=== PATIENT | female | born 1985 | race Caucasian/White ===

== ENCOUNTER 2024-08-09 08:34 | Inpatient (IN) | payer OTHER ==
--- OUTSIDE RECORDS SUMMARY | 2024-08-09 08:39 | XMS REPORT | Continuity of Care Document ---
Author Name Unknown Address [address] [facility] [place] [address] [facility] Address [address] [facility] [place] [address] Care Team Providers Care Radio Artist Name Role Phone PCP, PATIENT DOES NOT HAVE A Primary Care Physic huma Unavailable PAIGE THURSTON Attending Clinician Unavailable PAIGE THURSTON Attending Clinician Unavailable Paige Thurston MD Attending Clinician [phone] Nurse, [facility] Attending Clinician Unavailable Kunal Finley MD Attending Clinician [phone] KUNAL FINLEY Attending Clinician Unavailab KUNAL Christine Attending Clinician Unavailab Jaymie Gutierrez PA-C Attending Clinician [phone] Unknown, Attending Attending Clinician Unavailab JAYMIE Gutierrez Attending Clinician Unavailable BREE GILLIAM Attending Clinician Unavailable Bree Gilliam PA-C Attending Clinician [phone] RIANNA EDWARDS Attending Clinician Unavailable Rianna Nunes Attending Clinician [phone] Jordon Lopez MD Attending Clinician [phone] JORDON LOPEZ Attending Clinician Unavailable CHARMAINE DE LA VEGA Attending Clinician Unavailab CHARMAINE Ponce Attending Clinician Unavailab Charmaine Ponce DO Attending Clinician [phone] EMELYN LAWSON Attending Clinician Unavailable RENNY FAKEHBonita Attending Clinician Unavailable Nurse, [facility] Attending Clinician Un available Ebhievelina RN ACUTE CARE, Ngozi Attending Clinician [phone] Provider, [facility] Attending Clinician Unavailable Atif CASTLE, Andrew Attending Clinician [phone] ANDREW CHAND Attending Clinician Unavailable JUAN ORNELAS Attending Clinician Unavailable JUAN ORNELAS Attending Clinician Unavailable Juan Ornelas DO Attending Clinician [phone] CHELLE ALICEA Attending Clinician Unavailable Chelle Alicea NP Attending Clinician [phone] MIKE URENA Attending Clinician Unavailable Mike Urena DO Attending Clinician [phone] Doctor Unassigned, Offerman Attending Clinician U navailable BREN LONG Attending Clinician Unavaila ble Ibikunle Bren CASTLE Attending Clinician [phone] Willie Otoole Attending Clinician [phone] Willie SIMMONS Attending Clinician Unavailable JUAN ORNELAS Admitting Clinician Unavailable CHELLE ALICEA Admitting Clinician Unavailable MIKE URENA Admitting Clinician Unavailable CHARMAINE DE LA VEGA Admitting Clinician Unavailab Willie Gallagher Admitting Clinician Unavailable Payers Payer Name Policy Type Policy Number Effective Date Expirati on Date Source [facility] STAR [id number] 2024 00:00:00 [facility] STAR [id number] 2024 00:00:00 [facility] [id number] 2022 00:00:00 Problems Condition Name Condition Details Condition Category Status Onset Date Resolution Date Last Treatment Date Treating Clinician Comments Source Abnormal maternal glucose tolerance, antepartum Abnormal maternal glucose tolerance, antepartum Disease Active 01-21 00:00: 00 Overview: Formattin g of this note might be different from the original. Passed early 3hr [facility] Current with history of spontaneou s during prior Current with history of spontaneou s during prior Disease Active 01-20 00:00: 00 [facility] Obesity in , antepartum Obesity in , antepartum Disease Active 01-20 00:00: 00 [facility] Supervisio n of high risk , antepartum Supervisio n of high risk , antepartum Disease Active 01-20 00:00: 00 [facility] Tobacco use affecting , antepartum Tobacco use affecting , antepartum Disease Active 01-20 00:00: 00 [facility] Genital herpes complicati ng in antepartum condition Genital herpes complicati ng in antepartum condition Disease Active 01-20 00:00: 00 Overview: Formattin g of this note might be different from the original. + HSV 2 [facility] Current with history of labor, unspecifie d trimester Current with history of labor, unspecifie d trimester Disease Active 01-20 00:00: 00 [facility] Family history of congenital anomalies Family history of congenital anomalies Disease Active 01-20 00:00: 00 [facility] Obesity (BMI 30-39.9) Obesity (BMI 30-39.9) Disease Resolve d 23 00:00: 00 2018-01-20 00:00:00 2018-01-20 14:58:42 [facility] Abdominal pain Abdominal pain Disease Resolve d 22 00:00: 00 2018-01-20 00:00:00 2018-01-20 14:58:39 [facility] contractio ns contractio ns Disease Resolve d 11-12 00:00: 00 2018-01-20 00:00:00 2018-01-20 14:58:35 [facility] Allergies, Adverse Reactions, Alerts Allergy Name Allergy Type Status Severity Reaction(s) Onset Date Inactive Date Treating Clinician Comments Source Prometha zine Hcl Propensi ty to adverse reaction s Active Unknown - See comments 11-11 00:00: 00 Convulsio ns [facility] Azithrom ycin Propensi ty to adverse reaction s Active Unknown - See comments 11-11 00:00: 00 Stomach ache [facility] PROMETHA ZINE HCL DRUG INGREDI Active High Unknown-Cmnt 11-11 00:00: 00 [facility] AZITHROM YCIN DRUG INGREDI Active Unknown-Cmnt 11-11 00:00: 00 [facility] Social History Social Habit Start Date Stop Date Quantity Comments Source History of tobacco use Cigarette Smoker [facility] Alcoholic beverage intake 2024-06-30 00:00:00 2024-06-30 00:00:00 Current non-drinker of alcohol (finding) [facility] Cigarettes smoked current (pack per day) - Reported 2024-02-24 00:00:00 2024-02-24 00:00:00 [facility] Cigarette pack-years 2024-02-24 00:00:00 2024-02-24 00:00:00 [facility] Tobacco use and exposure 2024-02-24 00:00:00 2024-02-24 00:00:00 Smokeless tobacco non-user [facility] Tobacco Comment 2024-02-24 00:00:00 2024-02-24 00:00:00 information provided [facility] Exposure to SARS-CoV-2 (event) 2022-07-15 00:00:00 2022-07-25 20:43:00 Not sure [facility] Alcohol intake 2022-06-12 00:00:00 2022-06-12 00:00:00 Current non-drinker of alcohol (finding) [facility] History of Social function 2019-01-12 00:00:00 2019-01-12 00:00:00 [facility] Sex assigned at 1985 00:00:00 1985 00:00:00 [facility] Smoking Status Start Date Stop Date Source Smokes tobacco daily 2024-02-24 00:00:00 [facility] Medications Ordered Medication Name Filled Medication Name Start Date Stop Date Current Medication? Ordering Clinician Indication Dosage Frequency Signature (SIG) Comments Components Source HYDROcodone -acetaminop hen 7.5-325 mg per tablet 1-20 00:00: 08-01 05:59 :00 Yes [id number] 1{tbl} Take 1 tablet by mouth every 6 (six) hours as needed for Pain for up to 7 days. Indication s: acute pain [facility] ciprofloxac in HCl (CIPRO) 500 mg tablet 2023-07 00:00: 00 07-08 05:59 :00 Yes [id number] 500mg Take 1 tablet by mouth every 12 (twelve) hours for 7 days. [facility] methylPREDN ISolone 4 mg tablets 2023-07 00:00: 00 Yes [id number] Take by mouth SEE-INSTRU CTIONS. follow package directions [facility] albuterol 90 mcg/actuati on inhaler 2023-07 00:00: 00 Yes [id number] 2{puff} Inhale 2 Puffs every 6 (six) hours as needed for Chest tightness or Bronchospa sm. [facility] amoxicillin 500 mg capsule 2023-07 00:00: 06-28 05:59 :00 Yes [id number] 500mg Take 1 capsule by mouth in the morning and 1 capsule in the evening. Do all this for 7 days. [facility] valACYclovi r 500 mg tablet 2023-07 11:02: 58 Yes 500mg Take 1 tablet by mouth in the morning. [facility] bromphenira mine-pseudo ephedrine-D M (BROMFED DM) 2-30-10 mg/5 mL syrup 2023-07 00:00: 00 Yes [id number] 10mL Take 10 mL by mouth 4 (four) times daily as needed for Congestion /Allergies , Cold symptoms or Cough. [facility] ondansetron 4 mg disintegrat ing tablet 2023-07 00:00: 00 Yes [id number] 4mg Take 1 tablet by mouth every 12 (twelve) hours as needed for Nausea and Vomiting (N/V). [facility] oseltamivir (TAMIFLU) 75 mg capsule 2023-07 00:00: 00 05-22 05:59 :00 Yes [id number] 75mg Take 1 capsule by mouth in the morning and 1 capsule in the evening. Do all this for 5 days. [facility] traZODone 100 mg tablet 2023-07 00:00: 00 Yes 100mg Take 1 tablet by mouth at bedtime. [facility] ketorolac (TORADOL) injection 30 mg 2023-07 00:45: 00 04-05 00:23 :00 No 30mg 30 mg, Slow IV Push, ONCE, 1 dose, On Wed04/04/24 at 1945, Routine [facility] NaCl 0.9% (NS) bolus infusion 1,000 mL 2023-07 00:45: 00 04-05 01:18 :00 No 1000mL at 999 mL/hr, 1,000 mL, IV Infusion, ONCE, 1 dose, On Wed04/04/24 at 1945, SIMÓN [facility] dexamethaso ne sod phos PF injection 10 mg 2023-07 00:00: 00 04-05 00:23 :00 No 10mg 10 mg, Slow IV Push, ONCE, 1 dose, On Wed04/04/24 at 1900, 1 mL [facility] diphenhydrA MINE (BENADRYL) injection 25 mg 2023-07 00:00: 00 04-05 00:24 :00 No 25mg 25 mg, Slow IV Push, ONCE, 1 dose, On Wed04/04/24 at 1900, STAT [facility] metoclopram vicky HCl (REGLAN) injection 10 mg 2023-07 00:00: 00 04-05 00:24 :00 No 10mg 10 mg, Slow IV Push, ONCE, 1 dose, On Wed04/04/24 at 1900, SIMÓN [facility] Nitrofurant oin&Nit. Macrocryst 100 mg capsule 02-23 00:00: 00 03-03 04:59 :00 No [id number] 100mg Take 1 capsule by mouth in the morning and 1 capsule in the evening. Do all this for 7 days. [facility] ketorolac (TORADOL) injection 15 mg 02-16 01:30: 00 02-16 00:27 :00 No 15mg 15 mg, Slow IV Push, ONCE, 1 dose, On Wed02/16/24 at 2030, Routine [facility] NaCl 0.9% (NS) bolus infusion 1,000 mL 02-16 01:15: 00 02-16 02:34 :00 No 1000mL at 999 mL/hr, 1,000 mL, IV Infusion, ONCE, 1 dose, On Wed02/16/24 at 2015, SIMÓN [facility] iopamidol (ISOVUE 370-500 mL) injection 80 mL 02-16 01:00: 00 02-16 01:15 :00 No [id number] 80mL 80 mL, Intravenou s, ONCE, 1 dose, On Wed02/16/24 at 2015, Routine [facility] pantoprazol e (PROTONIX) injection 40 mg 02-16 00:30: 00 02-16 00:28 :00 No 40mg 40 mg, Slow IV Push, ONCE, 1 dose, On Wed02/16/24 at 1930 [facility] ondansetron (ZOFRAN (PF)) injection 4 mg 02-16 00:30: 00 02-16 00:27 :00 No 4mg 4 mg, Slow IV Push, ONCE, 1 dose, On Wed02/16/24 at 1930, [facility] dicyclomine 20 mg tablet 02-15 00:00: 00 Yes [id number] 20mg Take 1 tablet by mouth 4 (four) times daily. [facility] ondansetron 4 mg tablet 02-15 00:00: 00 05-16 00:00 :00 No [id number] 4mg Take 1 tablet by mouth every 8 (eight) hours as needed for Nausea and Vomiting (N/V) for up to 20 doses. [facility] pantoprazol e (PROTONIX) 40 mg EC tablet 02-15 00:00: 00 03-18 04:59 :00 No [id number] 40mg Take 1 tablet by mouth in the morning for 30 doses. [facility] omeprazole 40 mg capsule 02-03 00:00: 00 Yes TAKE 1 CAPSULE BY MOUTH IN THE MORNING [facility] NaCl 0.9% (NS) IV infusion 1,000 mL 02-08 03:30: 00 Yes 1000mL at 1,000 mL/hr, Intravenou s, CONTINUOUS , Starting on Wed02/07/23 at 2230, Until Discontinu ed, SIMÓN [facility] iopamidol (ISOVUE 370-500 mL) injection 85 mL 02-08 02:00: 00 02-08 02:00 :00 No [id number] 85mL 85 mL, Intravenou s, ONCE, 1 dose, On Wed02/07/23 at 2100, Routine [facility] diphenoxyla te-atropine (LOMOTIL) 2.5-0.025 mg tablet 1 tablet 02-08 01:30: 00 02-08 01:24 :00 No 1{tbl} 1 tablet, Oral, ONCE NOW, 1 dose, On Wed02/07/23 at 2030, Routine [facility] ketorolac (TORADOL) injection 30 mg 02-07 23:15: 00 02-08 00:08 :00 No 30mg 30 mg, Slow IV Push, ONCE, 1 dose, On Wed02/07/23 at 1815, Routine [facility] dicyclomine (BENTYL) injection 20 mg 02-07 23:00: 00 02-08 00:08 :00 No 20mg 20 mg, Intramuscu lar, ONCE NOW, 1 dose, On Wed02/07/23 at 1800, Routine [facility] NaCl 0.9% (NS) bolus infusion 1,000 mL 02-07 23:00: 00 02-08 02:40 :00 No 1000mL at 999 mL/hr, 1,000 mL, IV Infusion, ONCE, 1 dose, On Wed02/07/23 at 1800, SIMÓN [facility] ondansetron (ZOFRAN (PF)) injection 4 mg 02-07 22:15: 00 02-08 00:08 :00 No 4mg 4 mg, Slow IV Push, ONCE, 1 dose, On Wed02/07/23 at 1715, SIMÓN [facility] diphenoxyla te-atropine 2.5-0.025 mg tablet 02-07 00:00: 00 Yes [id number] 1{tbl} Take 1 tablet by mouth every 6 (six) hours as needed (diarrhra) . [facility] iopamidol (ISOVUE 370-500 mL) injection 100 mL 02-02 23:30: 00 02-02 23:30 :00 No [id number] 100mL 100 mL, Intravenou s, ONCE, 1 dose, On Wed02/02/23 at 1830, Routine [facility] ondansetron (ZOFRAN (PF)) injection 4 mg 02-02 22:30: 00 02-02 21:48 :00 No 4mg 4 mg, Slow IV Push, ONCE, 1 dose, On Wed02/02/23 at 1730, Routine [facility] morpHINE (4 mg/mL) injection 4 mg 02-02 22:30: 00 02-02 21:48 :00 No 4mg 4 mg, Slow IV Push, ONCE, 1 dose, On Wed02/02/23 at 1730, STAT [facility] sucralfate 1 gram tablet 02-02 00:00: 00 Yes [id number] 1g Take 1 tablet by mouth before meals and at bedtime. [facility] ondansetron 4 mg disintegrat ing tablet 02-02 00:00: 00 05-16 00:00 :00 No [id number] 4mg Take 1 tablet by mouth every 8 (eight) hours as needed for Nausea and Vomiting (N/V). [facility] dicyclomine (BENTYL) 10 mg capsule 02-02 00:00: 00 02-15 00:00 :00 No [id number] 10mg Take 1 capsule by mouth every 8 (eight) hours as needed for Abdominal pain. [facility] omeprazole 20 mg capsule 02-02 00:00: 00 03-05 04:59 :00 No [id number] 20mg Take 1 capsule by mouth in the morning for 30 days. [facility] maalox:diph enhydrAMINE :lidocaine 2 % viscous 1:1:1 (FIRST-MOUT HWASH BLM) oral suspension 15 mL 07-26 04:00: 00 07-26 03:59 :00 No 15mL 15 mL, Oral, ONCE, 1 dose, On 07/25/22 at 2200, Routine [facility] ondansetron (ZOFRAN (PF)) injection 4 mg 07-26 03:15: 00 07-26 03:03 :00 No 4mg 4 mg, Slow IV Push, ONCE, 1 dose, On 07/25/22 at 2115, SIMÓN [facility] iopamidol (ISOVUE 370-500 mL) injection 100 mL 07-26 02:55: 00 07-26 03:15 :00 No [id number] 100mL 100 mL, Intravenou s, ONCE, 1 dose, On 07/25/22 at 2115, Routine [facility] NaCl 0.9% (NS) injection 5 mL 07-26 02:42: 41 Yes 5mL 5 mL, Slow IV Push, PRN - SEE INSTRUCTIO NS, Starting on 07/25/22 at 204, Until Discontinu ed, 10 mL [facility] NaCl 0.9% (NS) bolus infusion 1,000 mL 2021-07 01:30: 00 06-26 01:38 :00 No 1000mL at 999 mL/hr, 1,000 mL, IV Infusion, ONCE, 1 dose, On Kathy 06/25/22 at 1930, SIMÓN [facility] pantoprazol e (PROTONIX) injection 40 mg 2021-07 01:00: 00 06-26 00:54 :00 No 40mg 40 mg, Slow IV Push, ONCE, 1 dose, On Kathy 06/25/22 at 1900 [facility] diphenhydrA MINE (BENADRYL) injection 25 mg 2021-07 00:45: 00 06-26 00:46 :00 No 25mg 25 mg, Slow IV Push, ONCE, 1 dose, On Kathy 06/25/22 at 1845, STAT [facility] dexamethaso ne sod phos PF injection 10 mg 2021-07 00:45: 00 06-26 00:38 :00 No 10mg 10 mg, Slow IV Push, ONCE, 1 dose, On Kathy 06/25/22 at 1845, 1 mL [facility] maalox:diph enhydrAMINE :lidocaine 2 % viscous 1:1:1 ([facility]) oral suspension 15 mL 2021-07 00:45: 00 06-26 00:50 :00 No 15mL 15 mL, Oral, ONCE, 1 dose, On Wed06/25/22 at 1845, Routine [facility] LORazepam (ATIVAN) injection 1 mg 2021-07 00:45: 00 06-26 00:47 :00 No 1mg 1 mg, Slow IV Push, ONCE, 1 dose, On Wed06/25/22 at 1845, STAT [facility] albuterol (PROVENTIL) 2.5 mg /3 mL (0.083 %) nebulizer solution 2.5 mg 2021-07 00:45: 00 06-26 00:49 :00 No 2.5mg 2.5 mg, Inhalation , ONCE, 1 dose, On Kathy 06/25/22 at 1845, STAT [facility] famotidine (PEPCID (PF)) injection 20 mg 2021-07 00:45: 00 06-26 00:46 :00 No 20mg 20 mg, Slow IV Push, ONCE, 1 dose, On Kathy 06/25/22 at 1845, SIMÓN [facility] albuterol 90 mcg/actuati on inhaler 2021-07 00:00: 00 Yes [id number] 2{puff} Inhale 2 Puffs every 4 (four) hours as needed for Wheezing or Shortness of Breath. [facility] pantoprazol e 40 mg EC tablet 2021-07 00:00: 00 07-26 05:59 :00 No [id number] 40mg Take 1 tablet by mouth in the morning for 30 days. [facility] predniSONE 20 mg tablet 2021-07 00:00: 00 07-01 05:59 :00 No [id number] 40mg Take 2 tablets by mouth in the morning for 5 days. [facility] cetirizine 10 mg tablet 2021-07 00:00: 00 07-01 05:59 :00 No [id number] 10mg Take 1 tablet by mouth in the morning for 5 days. [facility] maalox:diph enhydrAMINE :lidocaine 2 % viscous 1:1:1 (FIRST-MOUT HWASH BLM) oral suspension 15 mL 2021-07 05:00: 00 06-13 04:06 :00 No 15mL 15 mL, Oral (Swish & Swallow), ONCE, 1 dose, On Wed06/12/22 at 2300, Routine [facility] famotidine (PEPCID (PF)) injection 20 mg 2021-07 04:00: 00 06-13 04:06 :00 No 20mg 20 mg, Slow IV Push, ONCE, 1 dose, On Wed06/12/22 at 2200, SIMÓN [facility] ketorolac (TORADOL) injection 15 mg 2021-07 02:15: 00 06-13 01:21 :00 No 15mg 15 mg, Slow IV Push, ONCE, 1 dose, On Wed06/12/22 at 2015, SIMÓN [facility] ondansetron (ZOFRAN (PF)) injection 4 mg 2021-07 01:45: 00 06-13 00:44 :00 No 4mg 4 mg, Slow IV Push, ONCE, 1 dose, On Wed06/12/22 at 1945, SIMÓN [facility] iopamidol (ISOVUE 370-500 mL) injection 74 mL 2021-07 01:19: 00 06-13 01:30 :00 No [id number] 74mL 74 mL, Intravenou s, ONCE, 1 dose, On Wed06/12/22 at 1930, Routine [facility] ondansetron (ZOFRAN (PF)) injection 4 mg 2021-07 01:00: 00 06-13 00:01 :00 No 4mg 4 mg, Slow IV Push, ONCE, 1 dose, On Wed06/12/22 at 1900, SIMÓN [facility] NaCl 0.9% (NS) bolus infusion 1,000 mL 2021-07 01:00: 00 06-13 04:05 :00 No 1000mL at 999 mL/hr, 1,000 mL, IV Infusion, ONCE, 1 dose, On Wed06/12/22 at 1900, STAT [facility] famotidine (PEPCID) 40 mg tablet 2021-07 00:00: 00 Yes [id number] 40mg Take 1 tablet by mouth in the morning. [facility] ondansetron 4 mg disintegrat ing tablet 2021-07 00:00: 00 02-02 00:00 :00 No [id number] 4mg Take 1 tablet by mouth every 8 (eight) hours as needed for Nausea and Vomiting (N/V). [facility] Immunizations Ordered Immunization Name Filled Immunization Name Date Status Comments Source TDAP 2024-07-24 00:00:00 Completed [facility] Flu Injectable MDCK Pres-Free (FLUCELVAX) 2024-07-20 00:00:00 Completed [facility] Influenza Virus Vaccine Quad IM 3+ YRS 2016-09-25 00:00:00 Completed [facility] Influenza Virus Vaccine Quad IM 3+ YRS 2016-09-25 00:00:00 Completed [facility] Influenza Virus Vaccine Quad IM 3+ YRS 2016-09-25 00:00:00 Completed [facility] Influenza Virus Vaccine Quad IM 3+ YRS 2016-09-25 00:00:00 Completed [facility] Influenza Virus Vaccine Quad IM 3+ YRS 2016-09-25 00:00:00 Completed [facility] Influenza Virus Vaccine Quad IM 3+ YRS 2016-09-25 00:00:00 Completed [facility] Influenza Virus Vaccine Quad IM 3+ YRS 2016-09-25 00:00:00 Completed [facility] Influenza Virus Vaccine Quad IM 3+ YRS 2016-09-25 00:00:00 Completed [facility] Influenza Virus Vaccine Quad IM 3+ YRS 2016-09-25 00:00:00 Completed [facility] Influenza Virus Vaccine Quad IM 3+ YRS 2016-09-25 00:00:00 Completed [facility] Influenza Virus Vaccine Quad IM 3+ YRS Unknown Completed [facility] Influenza Virus Vaccine Quad IM 3+ YRS Unknown Completed [facility] Influenza Virus Vaccine Quad IM 3+ YRS Unknown Completed [facility] Influenza Virus Vaccine Quad IM 3+ YRS Unknown Completed [facility] Vital Signs Vital Name Observation Time Observation Value Comments S ource Systolic blood pressure 2024-07-25 02:33:02 132 mm[Hg] [facility] Diastolic blood pressure 2024-07-25 02:33:02 75 mm[Hg] [facility] Heart rate 2024-07-25 02:33:02 92 /min [facility] Body temperature 2024-07-25 02:33:02 36.83 Pratibha [facility] Respiratory rate 2024-07-25 02:33:02 18 /min [facility] Body height 2024-07-25 02:08:00 154.9 cm [facility] Body weight 2024-07-25 02:08:00 81.647 kg [facility] BMI 2024-07-25 02:08:00 34.01 kg/m2 [facility] Oxygen saturation in Arterial blood by Pulse oximetry 2024-07-25 02:08:00 100 /min [facility] Body temperature 2024-07-20 15:40:00 36.67 Pratibha [facility] Systolic blood pressure 2024-06-30 20:41:00 109 mm[Hg] [facility] Diastolic blood pressure 2024-06-30 20:41:00 77 mm[Hg] [facility] Heart rate 2024-06-30 20:41:00 95 /min [facility] Body temperature 2024-06-30 20:41:00 37 Pratibha [facility] Respiratory rate 2024-06-30 20:41:00 12 /min [facility] Body height 2024-06-30 20:41:[address] [facility] Body weight 2024-06-30 20:41:[address] [facility] BMI 2024-06-30 20:41:00 33.90 kg/m2 [facility] Oxygen saturation in Arterial blood by Pulse oximetry 2024-06-30 20:41:00 98 /min [facility] Systolic blood pressure 2024-06-21 00:01:00 123 mm[Hg] [facility] Diastolic blood pressure 2024-06-21 00:01:00 76 mm[Hg] [facility] Heart rate 2024-06-21 00:01:00 99 /min [facility] Body temperature 2024-06-21 00:01:00 36.89 Pratibha [facility] Respiratory rate 2024-06-21 00:01:00 20 /min [facility] Body weight 2024-06-21 00:01:00 81.557 kg [facility] BMI 2024-06-21 00:01:00 33.97 kg/m2 [facility] Oxygen saturation in Arterial blood by Pulse oximetry 2024-06-21 00:01:00 98 /min [facility] Systolic blood pressure 2024-06-10 17:03:00 109 mm[Hg] [facility] Diastolic blood pressure 2024-06-10 17:03:00 76 mm[Hg] [facility] Heart rate 2024-06-10 17:03:00 111 /min [facility] Body temperature 2024-06-10 17:03:00 37.11 Pratibha [facility] [facility] Respiratory rate 2024-06-10 17:03:00 20 /min [facility] Body weight 2024-06-10 17:03:[address] [facility] BMI 2024-06-10 17:03:00 34.16 kg/m2 [facility] Oxygen saturation in Arterial blood by Pulse oximetry 2024-06-10 17:03:00 98 /min [facility] Systolic blood pressure 2024-05-16 17:53:00 107 mm[Hg] [facility] Diastolic blood pressure 2024-05-16 17:53:00 64 mm[Hg] [facility] Heart rate 2024-05-16 17:53:00 96 /min [facility] Body temperature 2024-05-16 17:53:00 37.33 Pratibha [facility] Respiratory rate 2024-05-16 17:53:00 20 /min [facility] Body height 2024-05-16 17:53:00 154.9 cm [facility] Body weight 2024-05-16 17:53:00 82.781 kg [facility] BMI 2024-05-16 17:53:00 34.48 kg/m2 [facility] Oxygen saturation in Arterial blood by Pulse oximetry 2024-05-16 17:53:00 98 /min [facility] Systolic blood pressure 2024-04-05 01:00:00 106 mm[Hg] [facility] Diastolic blood pressure 2024-04-05 01:00:00 68 mm[Hg] [facility] Heart rate 2024-04-05 01:00:00 80 /min [facility] Body temperature 2024-04-05 01:00:00 36.83 Pratibha [facility] Respiratory rate 2024-04-05 01:00:00 17 /min [facility] Oxygen saturation in Arterial blood by Pulse oximetry 2024-04-05 01:00:00 99 /min [facility] Body height 2024-04-04 23:44:00 154.9 cm [facility] Body weight 2024-04-04 23:44:00 82.555 kg [facility] BMI 2024-04-04 23:44:00 34.39 kg/m2 [facility] Systolic blood pressure 2024-04-04 15:04:00 111 mm[Hg] [facility] Diastolic blood pressure 2024-04-04 15:04:00 78 mm[Hg] [facility] Heart rate 2024-04-04 15:04:00 85 /min [facility] Body temperature 2024-04-04 15:04:00 36.89 Pratibha [facility] Respiratory rate 2024-04-04 15:04:00 18 /min [facility] Body height 2024-04-04 15:04:00 154.9 cm [facility] Body weight 2024-04-04 15:04:00 82.753 kg [facility] BMI 2024-04-04 15:04:00 34.47 kg/m2 [facility] Oxygen saturation in Arterial blood by Pulse oximetry 2024-04-04 15:04:00 100 /min [facility] Systolic blood pressure 2024-02-24 18:08:00 100 mm[Hg] [facility] Diastolic blood pressure 2024-02-24 18:08:00 53 mm[Hg] [facility] Heart rate 2024-02-24 18:08:00 83 /min [facility] Body temperature 2024-02-24 18:08:00 36.78 Pratibha [facility] Respiratory rate 2024-02-24 18:08:00 18 /min [facility] Body weight 2024-02-24 18:08:00 83.008 kg [facility] BMI 2024-02-24 18:08:00 34.58 kg/m2 [facility] Oxygen saturation in Arterial blood by Pulse oximetry 2024-02-24 18:08:00 96 /min [facility] Systolic blood pressure 2024-02-17 02:00:00 131 mm[Hg] [facility] Diastolic blood pressure 2024-02-17 02:00:00 92 mm[Hg] [facility] Heart rate 2024-02-17 02:00:00 81 /min [facility] Body temperature 2024-02-17 02:00:00 37.06 Pratibha [facility] Respiratory rate 2024-02-17 02:00:00 20 /min [facility] Oxygen saturation in Arterial blood by Pulse oximetry 2024-02-17 02:00:00 99 /min [facility] Body height 2024-02-17 00:16:00 154.9 cm [facility] Body weight 2024-02-17 00:16:00 83.144 kg [facility] BMI 2024-02-17 00:16:00 34.63 kg/m2 [facility] Systolic blood pressure 2023-02-08 04:00:00 125 mm[Hg] [facility] Diastolic blood pressure 2023-02-08 04:00:00 84 mm[Hg] [facility] Heart rate 2023-02-08 04:00:00 79 /min [facility] Body temperature 2023-02-08 04:00:00 37.28 Pratibha [facility] Oxygen saturation in Arterial blood by Pulse oximetry 2023-02-08 04:00:00 100 /min [facility] Respiratory rate 2023-02-07 21:53:00 18 /min [facility] Body weight 2023-02-07 21:53:00 81.647 kg [facility] BMI 2023-02-07 21:53:00 34.01 kg/m2 [facility] Systolic blood pressure 2023-02-02 23:31:00 115 mm[Hg] [facility] Diastolic blood pressure 2023-02-02 23:31:00 75 mm[Hg] [facility] Heart rate 2023-02-02 23:31:00 74 /min [facility] Respiratory rate 2023-02-02 23:31:00 22 /min [facility] Oxygen saturation in Arterial blood by Pulse oximetry 2023-02-02 23:31:00 100 /min [facility] Body temperature 2023-02-02 19:31:00 37.28 Pratibha [facility] Body height 2023-02-02 19:31:[address] [facility] Body weight 2023-02-02 19:31:[address] [facility] BMI 2023-02-02 19:31:00 34.58 kg/m2 [facility] Systolic blood pressure 2022-07-26 04:31:00 98 mm[Hg] [facility] Diastolic blood pressure 2022-07-26 04:31:00 70 mm[Hg] [facility] Heart rate 2022-07-26 04:31:00 79 /min [facility] Body temperature 2022-07-26 04:31:00 36.78 Pratibha [facility] Respiratory rate 2022-07-26 04:31:00 16 /min [facility] Oxygen saturation in Arterial blood by Pulse oximetry 2022-07-26 04:31:00 99 /min [facility] Body height 2022-07-26 02:38:00 157.5 cm [facility] Body weight 2022-07-26 02:38:00 81.647 kg [facility] BMI 2022-07-26 02:38:00 32.92 kg/m2 [facility] Systolic blood pressure 2022-06-26 01:00:00 116 mm[Hg] [facility] Diastolic blood pressure 2022-06-26 01:00:00 83 mm[Hg] [facility] Heart rate 2022-06-26 01:00:00 82 /min [facility] Respiratory rate 2022-06-26 01:00:00 18 /min [facility] Oxygen saturation in Arterial blood by Pulse oximetry 2022-06-26 01:00:00 97 /min [facility] Body temperature 2022-06-26 00:21:00 37.17 Pratibha [facility] Body height 2022-06-26 00:21:[address] [facility] Body weight 2022-06-26 00:21:00 86.183 kg [facility] BMI 2022-06-26 00:21:00 35.90 kg/m2 [facility] Systolic blood pressure 2022-06-13 04:17:00 113 mm[Hg] [facility] Diastolic blood pressure 2022-06-13 04:17:00 79 mm[Hg] [facility] Heart rate 2022-06-13 04:17:00 75 /min [facility] Respiratory rate 2022-06-13 04:17:00 20 /min [facility] Oxygen saturation in Arterial blood by Pulse oximetry 2022-06-13 04:17:00 98 /min [facility] Body temperature 2022-06-12 23:51:00 37.72 Pratibha [facility] Body weight 2022-06-12 23:51:00 85.276 kg [facility] BMI 2022-06-12 23:51:00 35.52 kg/m2 [facility] Procedures Procedure Date / Time Performed Performing Clinician Source FLU VACC ([id number]), 6 MO-64 YRS, .5ML, IM, TIV (FLUCELVAX) 2024-07-20 15:30:24 Obi-Kunal Braxton [facility] POCT URINALYSIS 2024-06-30 20:45:00 Bree Gilliam [facility] POCT MOLECULAR FLU 2024-06-21 00:12:00 Bree Gilliam [facility] POCT MOLECULAR STREP 2024-06-21 00:08:00 [facility] SARS-COV-2 ANTIGEN (BINAX NOW) 2024-06-10 17:24:00 Rianna Edwards [facility] POCT URINALYSIS 2024-06-10 17:08:00 Rianna Edwards [facility] POCT MOLECULAR FLU 2024-06-10 17:04:00 Unknown, Adelia [facility] POCT MOLECULAR STREP 2024-06-10 17:02:00 Unknown, Audelia bermudez [facility] POCT SARS-COV-2 ANTIGEN (BINAX NOW) 2024-05-16 18:06:00 Jordon Lopez [facility] POCT MOLECULAR FLU 2024-05-16 17:55:00 Unknown, Attend ing [facility] POCT MOLECULAR STREP 2024-05-16 17:50:00 Unknown, Atte yovannying [facility] POCT SARS-COV-2 ANTIGEN (BINAX NOW) 2024-02-24 18:44:00 Andrew Chand [facility] POCT MOLECULAR STREP 2024-02-24 18:15:00 Mary Chand [facility] POCT URINALYSIS 2024-02-24 00:00:00 Andrew Chand Un [facility] POCT TEST 2024-02-17 00:31:00 Juan Ornelas [facility] LIPASE 2024-02-17 00:26:00 Juan Ornelas [facility] COMP. METABOLIC PANEL (93158) 2024-02-17 00:26:00 Juan Ornelas [facility] CBC WITH DIFF 2024-02-17 [facility]:26[facility]-02-17 00:26:00 Juan Ornelas [facility] CT ABDOMEN PELVIS W CONTRAST 2023-02-08 01:10:12 Chelle Alicea [facility] LACTIC ACID WHOLE BLOOD 2023-02-08 00:52:00 Jasvir Alicea [facility] POCT TEST 2023-02-08 00:31:00 Chelle Alicea [facility] URINE DRUG (IMMUNOASSAY) - COMPREHENSIVE DRUG SCREEN W/O REFLEX 2023-02-08 00:23:00 Chelle Alicea [facility] URINALYSIS 2023-02-08 00:22:00 Chelle Alicea [facility] CLOSTRIDIUM DIFFICILE TOXIN 2023-02-08 00:15:00 Chelle Alicea [facility] CREATINE KINASE 2023-02-08 00:07:[address] [facility] 2023-02-08 00:07:00 Drever, Chelle G [facility] MAGNESIUM 2023-02-08 00:07:00 Chelle Alicea [place] [facility] COMP. METABOLIC PANEL ([id number]) 2023-02-08 00:07:00 Chelle Alicea [facility] CBC WITH DIFF 2023-02-08 00:07:00 Chelle Alicea [facility] ASSIGNMENT OF BENEFITS 2023-02-07 23:23:01 Docto r Unassigned, Offerman [facility] CONSENT/REFUSAL FOR DIAGNOSIS AND TREATMENT 2023-02-07 21:23:46 Doctor Unassigned, Offerman [facility] POCT TEST 2023-02-02 21:51:00 Edilberto Urena [facility] COMP. METABOLIC PANEL (41157) 2023-02-02 21:43:00 Mike Urena [facility] CBC WITH DIFF 2023-02-02 21:43:00 Mike Urena [facility] URINALYSIS 2023-02-02 21:43:00 Mike Urena [facility] ASSIGNMENT OF BENEFITS 2023-02-02 20:51:35 Docto r Unassigned, Offerman [facility] CONSENT/REFUSAL FOR DIAGNOSIS AND TREATMENT 2023-02-02 20:48:37 Doctor Unassigned, Offerman [facility] URINALYSIS 2022-07-26 04:01:00 Charmaine De La Vega [facility] XR STROKE CHEST 1 VW 2022-07-26 03:20:52 Tony De La Vega [facility] CT STROKE HEAD WO CONTRAST 2022-07-26 03:02:54 Charmaine eD La Vega [facility] CT STROKE ANGIOGRAM HEAD 2022-07-26 03:02:54 Charmaine De La Vega [facility] CT STROKE ANGIOGRAM NECK 2022-07-26 03:02:54 Charmaine De La Vega [facility] TROPONIN I 2022-07-26 02:47:00 Charmaine De La Vega [facility] BASIC METABOLIC PANEL (NA, K, CL, CO2, GLUCOSE, BUN, CREATININE, CA) 2022-07-26 02:47:00 Charmaine De La Vega [facility] CBC WITHOUT DIFF 2022-07-26 02:47:00 Charmaine De La Vega [facility] PROTHROMBIN TIME / INR 2022-07-26 02:47:00 Ida De La Vega [facility] ACTIVATED PARTIAL THRMPLAS SHEILA 2022-07-26 02:47:00 Charmaine De La Vega [facility] POCT GLUCOSE (AUTOMATED) 2022-07-26 02:44:00 Charmaine De La Vega [facility] NOTICE OF PRIVACY PRACTICES 2022-07-26 02:32:59 Doctor Unassigned, Offerman [facility] CONSENT/REFUSAL FOR DIAGNOSIS AND TREATMENT 2022-07-26 02:32:38 Doctor Unassigned, Offerman [facility] COMP. METABOLIC PANEL ([id number]) 2022-06-26 00:44:00 Bren Long [facility] CBC WITH DIFF 2022-06-26 00:44:00 Bren Long [facility] POCT TEST 2022-06-26 00:42:00 Maisha Long [facility] CONSENT/REFUSAL FOR DIAGNOSIS AND TREATMENT 2022-06-26 00:13:35 Doctor Unassigned, Offerman [facility] CT ABDOMEN PELVIS W CONTRAST 2022-06-13 01:18:45 Willie Simmons [facility] POCT TEST 2022-06-13 00:45:00 Willie Simmons [facility] URINALYSIS 2022-06-13 00:39:00 Willie Simmons [facility] LIPASE 2022-06-13 00:00:00 Willie Simmons [facility] MAGNESIUM 2022-06-13 00:00:00 Willie Simmons [facility] COMP. METABOLIC PANEL ([id number]) 2022-06-13 00:00:00 Willie Simmons [facility] CBC WITH DIFF 2022-06-13 00:00:00 [facility]US[facility]IS AND TREATMENT 2022-06-12 23:33:19 Doctor Unassigned, Offerman [facility] Encounters Start Date/Time End Date/Time Encounter Type Admission Type Attending Clinicians Care Facility Care Department Encounter ID Source 2024-07-24 20:10:00 2024-07-24 20:51:00 Emergency X PAIGE THURSTON PAIGE THURSTON [facility] ERT [id number] [facility] 2024-07-24 20:10:00 2024-07-24 20:51:00 Emergency Zaid Thurstonnell [facility] 1..840.114 350.1.13.10 4.2.7.2.686 [id number] [facility] 2024-07-20 09:40:00 2024-07-20 10:00:00 Nurse Visit Nurse, [facility] , Kunal Nurse, [facility] 1..840.114 350.1.13.10 4.2.7.2.686 [id number] [facility] 2024-07-20 09:40:00 2024-07-20 09:40:00 Outpatient R KUNAL FINLEY KUNAL [facility] [id number] [facility] 2024-06-30 14:40:00 2024-06-30 15:00:00 Urgent Care Jaymie Rg Unknown, [facility]ending [facility] 1..840.114 350.1.13.10 4.2.7.2.686 [id number] [facility] 2024-06-30 14:40:00 2024-06-30 14:40:00 Outpatient JAYMIE BRISENO [facility] [id number] [facility] 2024-06-20 18:00:00 2024-06-20 18:30:32 Outpatient BREE DELGADO [facility] [id number] [facility] 2024-06-20 18:00:00 2024-06-20 18:30:32 Urgent Care Bree Gilliam Unknown, Attending [facility] 1..840.114 350.1.13.10 4.2.7.2.686 [id number] [facility] 2024-06-10 11:00:00 2024-06-10 12:00:56 Outpatient R RIANNA EDWARDS [facility] [id number] [facility] 2024-06-10 11:00:00 2024-06-10 12:00:56 Urgent Care Rianna Edwards Unknown, Attending [facility] 1..840.114 350.1.13.10 4.2.7.2.686 [id number] [facility] 2024-05-16 10:40:00 2024-05-16 11:00:00 Urgent Care Jordon Lopez, Attending [facility] 1.2.840.114 350.1.13.10 4.2.7.2.686 [id number] [facility] 2024-05-16 10:40:00 2024-05-16 10:40:00 Outpatient JORDON HANNA [facility] [id number] [facility] 2024-05-03 13:18:18 2024-05-03 13:18:[address] [facility] [id number] Bert Drew 2024-04-04 18:50:00 2024-04-04 20:23:00 Emergency X CHARMAINE DE LA VEGA SANDRA [facility] ERT [id number] [facility] 2024-04-04 18:50:00 2024-04-04 20:23:00 Emergency Charmaine De La Vega [facility] 1..840.114 350.1.13.10 4.2.7.2.686 [id number] [facility] 2024-04-04 10:00:00 2024-04-04 10:05:02 Nurse Visit Nurse, [facility] Unknown, Attending Ngozi Hicks Nurse, [facility] 1.2.840.114 350.1.13.10 4.2.7.2.686 [id number] [facility] 2024-04-04 09:20:00 2024-04-04 09:40:00 Urgent Care Provider, [facility] Unknown, Attending Provider, [facility] 1.2.840.114 350.1.13.10 4.2.7.2.686 [id number] [facility] 2024-04-04 09:20:00 2024-04-04 09:20:00 Outpatient R JORDON LOPEZ [facility] [id number] [facility] 2024-03-22 09:28:28 2024-03-22 09:28:[address] [facility] [id number] Bert Drew 2024-02-24 13:00:00 2024-02-24 13:20:00 Urgent Care Mary Chandlucia Unknown, Attending [facility] 1.2.840.114 350.1.13.10 4.2.7.2.686 [id number] [facility] 2024-02-24 13:00:00 2024-02-24 13:00:00 Outpatient R ANDREW CHAND [facility] [id number] [facility] 2024-02-23 15:56:32 2024-02-23 15:56:[address] [facility] [id number] Bert Drew 2024-02-16 19:17:00 2024-02-16 21:36:00 Emergency X JUAN ORNELAS TIMOTHY [facility] ERT [id number] [facility] 2024-02-16 19:17:00 2024-02-16 21:36:00 Emergency Juan Ornelas [facility] 1..840.114 350.1.13.10 4.2.7.2.686 [id number] [facility] 2023-11-05 14:38:37 2023-11-05 14:38:37 Outpatient SFA [facility] [id number] Bert Drew 2023-09-09 14:01:24 2023-09-09 14:01:24 Outpatient SFA SFA [id number] Bert Drew 2023-09-05 13:07:12 2023-09-05 13:07:12 Outpatient SFA SFA [id number] Bert Drew 2023-05-11 19:11:01 2023-05-11 19:11:01 Outpatient SFA SFA [id number] Bert Ibanez Rajendra 2023-04-27 15:43:47 2023-04-27 15:43:47 Outpatient SFA SFA [id number] Bert Ibanez Rajendra 2023-02-26 14:39:00 2023-02-26 14:39:00 Outpatient SFA S[facility] [id number] Bert Ibanez Rajendra 2023-02-07 16:57:00 2023-02-07 23:17:00 Emergency X CHELLE ALICEA [facility] ERT [id number] [facility] 2023-02-07 16:57:00 2023-02-07 23:17:00 Emergency Chelle Alicea [place] [facility] 1..840.114 350.1.13.10 4.2.7.2.686 [id number] [facility] 2023-02-02 14:32:00 2023-02-02 19:04:00 Emergency X MIKE [facility] ERT [id number] [facility] 2023-02-02 14:32:00 2023-02-02 19:04:00 Emergency Mike Urena [facility] 1.2.840.114 350.1.13.10 4.2.7.2.686 [id number] [facility] 2022-07-30 00:00:00 2022-07-30 00:00:00 Patient Secure Msg Doctor Unassigned, Offerman [facility] 1.2.840.114 350.1.13.10 4.2.7.2.686 [id number] [facility] 2022-07-25 20:40:00 2022-07-25 22:43:00 Emergency X CHARMAINE DE LA VEGA [facility] ERT [id number] [facility] 2022-07-25 20:40:00 2022-07-25 22:43:00 Emergency Charmaine De La Vega [facility] 1.2.840.114 350.1.13.10 4.2.7.2.686 [id number] [facility] 2022-07-25 00:00:00 2022-07-25 00:00:00 Orders Only Doctor Unassigned, Offerman [facility] 1.2840.114 350.1.13.10 4.2.7.2.686 [id number] [facility] 2022-06-25 18:25:00 2022-06-25 19:41:00 Emergency X BREN LONG [facility] ERT [id number] [facility] 2022-06-25 18:25:00 2022-06-25 19:41:00 Emergency Bren Long [facility] 1.2.840.114 350.1.13.10 4.2.7.2.686 [id number] [facility] 2022-06-14 00:00:00 2022-06-14 00:00:00 Patient Secure Msg Doctor Unassigned, Offerman [facility] 1.2.840.114 350.1.13.10 4.2.7.2.686 [id number] [facility] 2022-06-12 18:24:00 2022-06-12 22:39:00 Emergency Willie Simmons [facility] 1.2.840.114 350.1.13.10 4.2.7.2.686 [id number] [facility] 2022-06-12 18:24:00 2022-06-12 22:39:00 Emergency X Willie SIMMONS [facility] ERT [id number] [facility] Results Test Description Test Time Test Comments Results Result Co mments Source [facility] Molecular [id number] 00:24:11* Test Item Value Reference Range Interpretation Comme nts POCT Molecular FluA (test co de = 46381-8) Negative Negative POCT Molecular FluB (test co de = 98685-0) Negative Negative Lab Interpretation (test cod e = 50329-4) Normal [facility] MOLECULAR [id number] 00:16:14* Test Item Value Reference Range Interpretation Comme nts POCT Molecular Strep (test c ode = 56710-9) Negative Negative Lab Interpretation (test cod e = 64527-1) Normal [facility] SARS-COV-2 ANTIGEN (BINAX NOW)2024-06-10 17:24:00* Test Item Value Reference Range Interpretation Comme nts POCT SARS-COV-2 ANTIGEN (test code = 85405-0) Not Detected Not Detected, See Comment On board controls acceptable with C Line (test code = 3574) Yes FRED (test code = FRED) accurate development and interpretation of all internal controlsLeonarda Lee MA ?06/10/2024 ?11:24 AM [facility] Molecular [id number] 17:16:25* Test Item Value Reference Range Interpretation Comme nts POCT Molecular FluA (test co de = 55248-9) Negative Negative POCT Molecular FluB (test co de = 70644-8) Negative Negative Lab Interpretation (test cod e = 05546-7) Normal [facility] MOLECULAR [id number] 17:10:02* Test Item Value Reference Range Interpretation Comme nts POCT Molecular Strep (test c ode = 67358-3) Negative Negative Lab Interpretation (test cod e = 19165-2) Normal [facility] Urinalysis W Specific [id number] 17:09:00* Test Item Value Reference Range Interpretation Comme nts POCT U SP GRAV (test code = 3255) 1.020 mg/dl 1.005-1.025 POCT PH U (test code = 3254) 5 mg/dl 5-8 POCT U LEUK EST (test code = 3263) neg Negative - Negative POCT U NIT (test code = 3262) neg Negative - Negative POCT U PROT (test code = 3259) trace Negative - Negative POCT U GLU (test code = 3256) neg Negative - Negative POCT U KETONE (test code = 3258) neg Negative - Negative POCT U UROBILI (test code = 3260) neg 0.2-1 POCT U BILI (test code = 3261) neg Negative - Negative POCT U BLD (test code = 3257) neg Negative - Negative POCT U COLOR (test code = 3266) yellow POCT U APPEAR (test code = 3267) clear FRED (test code = FRED) accurate development and interpretation of all internal controlsLeonarda Lee MA ?06/10/2024 ?11:08 AM [facility] Molecular [id number] 18:07:16* Test Item Value Reference Range Interpretation Comme nts POCT Molecular FluA (test co de = 87317-6) Negative Negative POCT Molecular FluB (test co de = 38938-8) Negative Negative Lab Interpretation (test cod e = 30038-7) Normal [facility] SARS-COV-2 ANTIGEN (BINAX NOW)2024-05-16 18:06:00* Test Item Value Reference Range Interpretation Comme nts POCT SARS-COV-2 ANTIGEN (test code = 42011-1) Not Detected Not Detected, See Comment On board controls acceptable with C Line (test code = 3574) Yes FRED (test code = FERD) accurate developme nt and interpretation of all internal controls Lab Interpretation (test code = 34678-7) Normal [facility] MOLECULAR [id number] 17:58:19* Test Item Value Reference Range Interpretation Comme nts POCT Molecular Strep (test c ode = 12767-9) Negative Negative Lab Interpretation (test cod e = 91478-1) Normal [facility] SARS-COV-2 ANTIGEN (BINAX NOW)2024-02-24 18:45:00* Test Item Value Reference Range Interpretation Comme nts POCT SARS-COV-2 ANTIGEN (test code = 99460-8) Not Detected Not Detected, See Comment On board controls acceptable with C Line (test code = 3574) Yes [facility] Urinalysis W Specific [id number] 18:24:00* Test Item Value Reference Range Interpretation Comme nts POCT U SP GRAV (test code = 3255) 1.000 mg/dl 1.005-1.025 A POCT PH U (test code = 3254) 9 mg/dl 5-8 A POCT U LEUK EST (test code = 3263) ++ Negative - Negative POCT U NIT (test code = 3262) Negative Negative - Negati ve POCT U PROT (test code = 3259) + Negative - Negative POCT U GLU (test code = 3256) Negative Negative - Negati ve POCT U KETONE (test code = 3258) Negative Negative - Negative POCT U UROBILI (test code = 3260) Negative 0.2-1 POCT U BILI (test code = 3261) Negative Negative - Negative POCT U BLD (test code = 3257) About 250 Negative - Negati ve POCT U COLOR (test code = 3266) Red POCT U APPEAR (test code = 3267) Cloudy Lab Interpretation (test cod e = 02313-4) Abnormal [facility] MOLECULAR [id number] 18:22:58* Test Item Value Reference Range Interpretation Comme nts POCT Molecular Strep (test c ode = 34748-3) Negative Negative Lab Interpretation (test cod e = 08529-9) Normal [facility] [id number] 00:31:00* Test Item Value Reference Range Interpretation Comme nts POCT PREG (test code = 1605) Negative On board controls acceptable with C Line (test code = 3574) Yes POCT PREG LOT # (test code = 3575) [id number] POCT PREG TEST DATE ( test code = 3576) 2025-05-16 Lab Interpretation (test cod e = 72208-9) Normal [facility] [id number] 00:31:00* Test Item Value Reference Range Interpretation Comme nts POCT PREG (test code = 1605) Negative On board controls acceptable with C Line (test code = 3574) Yes POCT PREG LOT # (test code = 3575) [id number] POCT PREG TEST DATE ( test code = 3576) 04/09/2024 Lab Interpretation (test cod e = 34070-4) [facility]. METABOLIC PANEL (20159)2023-02-02 22:45:13* Test Item Value Reference Range Interpretation Comme nts NA (test code = 6338909580) 138 mmol/L 135-145 K (test code = 8820604271) 4.0 mmol/L 3.5-5.0 CL (test code = 1186422566) 104 mmol/L 98-108 CO2 TOTAL (test code = 3045199167) 25 mmol/L 23-31 AGAP (test code = 4253230354) 9 2-16 BUN (test code = 6394191565) 4 mg/dL 7-23 L GLUCOSE (test code = 6880964398) 87 mg/dL 70-110 CREATININE (test code = 6224775156) 0.76 mg/dL 0.50-1.04 TOTAL BILI (test code = 7963199933) 0.3 mg/dL 0.1-1.1 CALCIUM (test code = 3468403340) 8.3 mg/dL 8.6-10.6 L T PROTEIN (test code = 2507296425) 7.3 g/dL 6.3-8.2 ALBUMIN (test code = 8980408803) 3.8 g/dL 3.5-5.0 ALK PHOS (test code = 1785105059) 88 U/L 34-122 ALTv (test code = 1742-6) 15 U/L 5-35 AST(SGOT) (test code = 6109960826) 21 U/L 13-40 eGFR (test code = 3150863305) 86.6 mL/min/1.73m2 FRED (test code = FRED) Association of Glomerular Filtration Rate (GFR) and Staging of Kidney Disease* + --+ --+ ------+| GFR (mL/min/1.73 m2) ?| With Kidney Damage ?| ?Without Kidney Damage+ --------+ --------+ +| ?>90 ?| ?Stage one ?| ? Normal ?+ ---+ ---+ -------+| ?60-89 ?| ?Stage two ?| ? Decreased GFR ? + --+ --+ ------+| ?30-59 ?| ?Stage three ?| ? Stage three ? + --+ --+ ------+| ?15-29 ?| ?Stage four ? | ? Stage four ?+ ---+ ---+ -------+| ?<15 (or dialysis) ? ?| ?Stage five ? | ? Stage five ?+ ---+ ---+ -------+ *Each stage assumes the associated GFR level has been in effect for at least three months. ?Stages 1 to 5, with or without kidney disease, indicate chronic kidney disease. Notes: Determination of stages one and two (with eGFR >59mL/min/1.73 m2) requires estimation of kidney damage for at least three months as defined by structural or functional abnormalities of the kidney, manifested by either:Pathological abnormalities or Markers of kidney damage (including abnormalities in the composition of the blood or urine or abnormalities in imaging tests). Lab Interpretation (test code = 23831-4) Abnormal [facility] WITH [id number] 22:34:13* Test Item Value Reference Range Interpretation Comme nts WBC (test code = 6690-2) 9.97 See_Comment [Automated Giv.to] The system which generated this result transmitted reference range: 4.30 - 11.10 10*3/?L. The reference range was not used to interpret this result as normal/abnormal. RBC (test code = 789-8) 4.38 See_Comment [Automated Giv.to] The system which generated this result transmitted reference range: 3.93 - 5.25 10*6/?L. The reference range was not used to interpret this result as normal/abnormal. HGB (test code = 718-7) 10.2 g/dL 11.6-15.0 L HCT (test code = 4544-3) 33.2 % 35.7-45.2 L MCV (test code = 787-2) 75.8 fL 80.6-95.5 L MCH (test code = 785-6) 23.3 pg 25.9-32.8 L MCHC (test code = 786-4) 30.7 g/dL 31.6-35.1 L RDW-SD (test code = 08895-6) 44.4 fL 39.0-49.9 RDW-CV (test code = 788-0) 16.2 % 12.0-15.5 H PLT (test code = 777-3) 341 See_Comment [Automated messa ge] The system which generated this result transmitted reference range: 166 - 358 10*3/?L. The reference range was not used to interpret this result as normal/abnormal. MPV (test code = 61987-9) 10.8 fL 9.5-12.9 NRBC/100 WBC (test code = 6547936805) 0.0 See_Comment [Automated me ssage] The system which generated this result transmitted reference range: 0.0 - 10.0 /100 WBCs. The reference range was not used to interpret this result as normal/abnormal. NRBC x10^3 (test code = 5730775112) See_Comment [Automated messa ge] The system which generated this result transmitted reference range: 10*3/?L. The reference range was not used to interpret this result as normal/abnormal. GRAN MAT (NEUT) % (test code = 770-8) 67.7 % IMM GRAN % (test code = 1680790231) 0.50 % LYMPH % (test code = 736-9) 20.1 % MONO % (test code = 5905-5) 7.7 % EOS % (test code = 713-8) 3.2 % BASO % (test code = 706-2) 0.8 % GRAN MAT x10^3(ANC) (test code = 3787957945) 6.75 10*3/uL 1.88-7.09 IMM GRAN x10^3 (test code = 4043736835) 0.05 10*3/uL 0.00-0.06 LYMPH x10^3 (test code = 731-0) 2.00 10*3/uL 1.32-3.29 MONO x10^3 (test code = 742-7) 0.77 10*3/uL 0.33-0.92 EOS x10^3 (test code = 711-2) 0.32 10*3/uL 0.03-0.39 BASO x10^3 (test code = 704-7) 0.08 10*3/uL 0.01-0.07 H Lab Interpretation (test code = 10303-5) [facility]normal [facility] [id number] 21:51:00* Test Item Value Reference Range Interpretation Comme nts POCT PREG (test code = 1605) Negative On board controls acceptable with C Line (test code = 3574) Yes POCT PREG LOT # (test code = 3575) [id number] POCT PREG TEST DATE ( test code = 3576) 06-16-2024 Lab Interpretation (test cod e = 67703-3) Normal [facility] CampusTroponin I - Code Iyofwm8599-88-62 03:15:51* Test Item Value Reference Range Interpretation Comments TROPONIN I (test code = 2874608929) 0.002 ng/mL See_Comment [Automated message] The system which generated this result transmitted reference range: <=0.034. The reference range was not used to interpret this result as normal/abnormal. FRED (test code = FRED) Reference (Normal) Range (defined by the 99th percentile reference limit): <= 0.034 ng/mL Note: Cardiac troponin begins to rise 3-4 hours after the onset of ischemia. Repeat in 4-6 hours if the sample was drawn within 3-4 hours of the onset of the symptom and found normal. Diagnosis of myocardial injury is made with acute changes in cTn concentrations with at least one serial sample above the 99th percentile upper reference limit (URL), taken together with the patient's clinical presentation. Biotin has been reported to cause a negative bias, interpret results relative to patient's use of biotin. Lab Interpretation (test code = 28030-5) Normal [facility] CampusaPTT - Code [id number] 03:13:50* Test Item Value Reference Range Interpretation Comme [facility] APTT Patient (test code = 3173-2) See_Comment [Automated message] The system which generated this result transmitted reference range: 23 - 38 Seconds. The reference range was not used to interpret this result as normal/abnormal. FRED (test code = FRED) The [facility] patient population mean normal value for aPTT is 30 seconds. Lab Interpretation (test code = 29611-8) Normal [facility] CampusProthrombin Time / INR - Code [id number] 03:11:50* Test Item Value Reference Range Interpretation Comme [facility] PROTIME PATIENT (test code = 5964-2) See_Comment L [Automated messa ge] The system which generated this result transmitted reference range: 12.0 - 14.7 Seconds. The reference range was not used to interpret this result as normal/abnormal. INR (test code = 6301-6) Normal INR <1.1; Warfarin Therapeutic range 2.0 to 3.0 or 2.5 to 3.5, depending upon the indications. Lab Interpretation (test code = 52350-9) Abnormal [facility] (NA, K, CL, CO2, Glucose, BUN, Creatinine, CA) - Code Nntruk5774-00-94 03:10:39* Test Item Value Reference Range Interpretation Comme [facility] NA (test code = 6080731531) 135 mmol/L 135-145 K (test code = 7630078224) 4.3 mmol/L 3.5-5.0 CL (test code = 0511791543) 103 mmol/L 98-108 CO2 TOTAL (test code = 6407422953) 24 mmol/L 23-31 AGAP (test code = 1587043013) 2-16 BUN (test code = 7041598854) 9 mg/dL 7-23 GLUCOSE (test code = 9189507185) 91 mg/dL 70-110 CREATININE (test code = 7647337215) 0.74 mg/dL 0.50-1.04 CALCIUM (test code = 9455213793) 8.2 mg/dL 8.6-10.6 L eGFR (test code = 5561945855) mL/min/1.73m2 FRED (test code = FRED) Association of Glomerular Filtration Rate (GFR) and Staging of Kidney Disease* + --+ --+ ------+| GFR (mL/min/1.73 m2) ?| With Kidney Damage ?| ?Without Kidney Damage+ --------+ --------+ +| ?>90 ?| ?Stage one ?| ? Normal ?+ ---+ ---+ -------+| ?60-89 ?| ?Stage two ?| ? Decreased GFR ? + --+ --+ ------+| ?30-59 ?| ?Stage three ?| ? Stage three ? + --+ --+ ------+| ?15-29 ?| ?Stage four ? | ? Stage four ?+ ---+ ---+ -------+| ?<15 (or dialysis) ? ?| ?Stage five ? | ? Stage five ?+ ---+ ---+ -------+ *Each stage assumes the associated GFR level has been in effect for at least three months. ?Stages 1 to 5, with or without kidney disease, indicate chronic kidney disease. Notes: Determination of stages one and two (with eGFR >59mL/min/1.73 m2) requires estimation of kidney damage for at least three months as defined by structural or functional abnormalities of the kidney, manifested by either:Pathological abnormalities or Markers of kidney damage (including abnormalities in the composition of the blood or urine or abnormalities in imaging tests). Lab Interpretation (test code = 56767-3) Abnormal [facility] without Diff - Code Yhkmxl1060-09-23 02:55:30* Test Item Value Reference Range Interpretation Comme nts WBC (test code = 6690-2) See_Comment H [Automated message] The system which generated this result transmitted reference range: 4.30 - 11.10 10*3/?L. The reference range was not used to interpret this result as normal/abnormal. RBC (test code = 789-8) See_Comment [Automated message] The system which generated this result transmitted reference range: 3.93 - 5.25 10*6/?L. The reference range was not used to interpret this result as normal/abnormal. HGB (test code = 718-7) 10.6 g/dL 11.6-15.0 L HCT (test code = 4544-3) 34.0 % 35.7-45.2 L MCH (test code = 785-6) 24.4 pg 25.9-32.8 L MCV (test code = 787-2) 78.3 fL 80.6-95.5 L MCHC (test code = 786-4) 31.2 g/dL 31.6-35.1 L PLT (test code = 777-3) See_Comment H [Automated message] The system which generated this result transmitted reference range: 166 - 358 10*3/?L. The reference range was not used to interpret this result as normal/abnormal. MPV (test code = 82123-5) 10.1 fL 9.5-12.9 RDW-CV (test code = 788-0) 14.6 % 12.0-15.5 RDW-SD (test code = 29951-4) 41.6 fL 39.0-49.9 NRBC x10^3 (test code = 4285269474) See_Comment [Automated Yappea ge] The system which generated this result transmitted reference range: 10*3/?L. The reference range was not used to interpret this result as normal/abnormal. NRBC/100 WBC (test code = 3973139863) See_Comment [Automated Yappea ge] The system which generated this result transmitted reference range: 0.0 - 10.0 /100 WBCs. The reference range was not used to interpret this result as normal/abnormal. IPF % (test code = 5463160499) Lab Interpretation (test code = 58313-0) Abnormal [facility]PO[facility] GLUCOSE (AUTOMATED)2022-07-26 02:47:33* Test Item Value Reference Range Interpretation Comme [facility] POCT GLU (test code = 5283421078) 91 mg/dL 70-110 Lab Interpretation (test cod e = 24464-9) Normal [facility] CampusCOMP. METABOLIC PANEL (13087)2022-06-26 01:16:55* Test Item Value Reference Range Interpretation Comme [facility] NA (test code = 7299818271) 135 mmol/L 135-145 K (test code = 0494792609) 4.2 mmol/L 3.5-5.0 CL (test code = 3336711017) 100 mmol/L 98-108 CO2 TOTAL (test code = 7262703337) 28 mmol/L 23-31 AGAP (test code = 5407424949) 2-16 BUN (test code = 0991198044) 11 mg/dL 7-23 GLUCOSE (test code = 7867362828) 87 mg/dL 70-110 CREATININE (test code = 4520214564) 0.75 mg/dL 0.50-1.04 TOTAL BILI (test code = 4929415147) 0.4 mg/dL 0.1-1.1 CALCIUM (test code = 1924437611) 9.5 mg/dL 8.6-10.6 T PROTEIN (test code = 3638690314) 7.8 g/dL 6.3-8.2 ALBUMIN (test code = 0564484091) 4.5 g/dL 3.5-5.0 ALK PHOS (test code = 1393224603) 100 U/L 34-122 ALTv (test code = 1742-6) 15 U/L 5-35 AST(SGOT) (test code = 5658911613) 21 U/L 13-40 eGFR (test code = 9289536924) mL/min/1.73m2 FRED (test code = FRED) Association of Glomerular Filtration Rate (GFR) and Staging of Kidney Disease* + + +- +| GFR (mL/min/1.73 m2) ?| With Kidney Damage ?| ?Without Kidney Damage+ ------+ ----+ ------+| ?>90 ?| ?Stage one ?| ? Normal ?+ -+ + -+| ?60-89 ?| ?Stage two ?| ? Decreased GFR ? + + +- +| ?30-59 ?| ?Stage three ?| ? Stage three ? + + +- +| ?15-29 ?| ?Stage four ? | ? Stage four ?+ -+ + -+| ?<15 (or dialysis) ? ?| ?Stage five ? | ? Stage five ?+ -+ + -+ *Each stage assumes the associated GFR level has been in effect for at least three months. ?Stages 1 to 5, with or without kidney disease, indicate chronic kidney disease. Notes: Determination of stages one and two (with eGFR >59mL/min/1.73 m2) requires estimation of kidney damage for at least three months as defined by structural or functional abnormalities of the kidney, manifested by either:Pathological abnormalities or Markers of kidney damage (including abnormalities in the composition of the blood or urine or abnormalities in imaging tests). [facility] WITH [id number] 01:11:17* Test Item Value Reference Range Interpretation Comme nts WBC (test code = 6690-2) See_Comment [Automated Yappea ge] The system which generated this result transmitted reference range: 4.30 - 11.10 10*3/?L. The reference range was not used to interpret this result as normal/abnormal. RBC (test code = 789-8) See_Comment [Automated Yappea ge] The system which generated this result transmitted reference range: 3.93 - 5.25 10*6/?L. The reference range was not used to interpret this result as normal/abnormal. HGB (test code = 718-7) 11.1 g/dL 11.6-15.0 L HCT (test code = 4544-3) 36.0 % 35.7-45.2 MCV (test code = 787-2) 79.3 fL 80.6-95.5 L MCH (test code = 785-6) 24.4 pg 25.9-32.8 L MCHC (test code = 786-4) 30.8 g/dL 31.6-35.1 L RDW-SD (test code = 62505-8) 42.1 fL 39.0-49.9 RDW-CV (test code = 788-0) 14.6 % 12.0-15.5 PLT (test code = 777-3) See_Comment H [Automated Yappea ge] The system which generated this result transmitted reference range: 166 - 358 10*3/?L. The reference range was not used to interpret this result as normal/abnormal. MPV (test code = 66663-8) 10.7 fL 9.5-12.9 NRBC/100 WBC (test code = 4471219511) See_Comment [Automated Segetis ssage] The system which generated this result transmitted reference range: 0.0 - 10.0 /100 WBCs. The reference range was not used to interpret this result as normal/abnormal. NRBC x10^3 (test code = 5863635892) See_Comment [Automated messa ge] The system which generated this result transmitted reference range: 10*3/?L. The reference range was not used to interpret this result as normal/abnormal. GRAN MAT (NEUT) % (test code = 770-8) 58.5 % IMM GRAN % (test code = 8340507574) 0.90 % LYMPH % (test code = 736-9) 29.4 % MONO % (test code = 5905-5) 7.8 % EOS % (test code = 713-8) 2.8 % BASO % (test code = 706-2) 0.6 % GRAN MAT x10^3(ANC) (test code = 1220831662) 6.35 10*3/uL 1.88-7.09 IMM GRAN x10^3 (test code = 7706920168) 0.10 10*3/uL 0.00-0.06 H LYMPH x10^3 (test code = 731-0) 3.20 10*3/uL 1.32-3.29 MONO x10^3 (test code = 742-7) 0.85 10*3/uL 0.33-0.92 EOS x10^3 (test code = 711-2) 0.30 10*3/uL 0.03-0.39 BASO x10^3 (test code = 704-7) 0.07 10*3/uL 0.01-0.07 Lab Interpretation (test code = 98200-5) [facility]normal [facility]PO[facility] [id number] 00:42:00* Test Item Value Reference Range Interpretation Comme nts POCT PREG (test code = 1605) negative On board controls acceptable with C Line (test code = 3574) present POCT PREG LOT # (test code = 3575) [id number] POCT PREG TEST DATE ( test code = 3576) 10-03-2023 Lab Interpretation (test cod e = 81290-9) [facility] 00:50:02* Test Item Value Reference Range Interpretation Comme nts MAGNESIUM (test code = 1487376317) 1.9 mg/dL 1.7-2.4 Lab Interpretation (test cod e = 70624-6) Normal [facility]COMP. METABOLIC PANEL (93366)2022-06-13 00:49:27* Test Item Value Reference Range Interpretation Comme nts NA (test code = 4053070853) 137 mmol/L 135-145 K (test code = 1026000133) 4.6 mmol/L 3.5-5.0 CL (test code = 8448077280) 106 mmol/L 98-108 CO2 TOTAL (test code = 5619478888) 22 mmol/L 23-31 L AGAP (test code = 2038335303) 2-16 BUN (test code = 1630158086) 12 mg/dL 7-23 GLUCOSE (test code = 7944334138) 91 mg/dL 70-110 CREATININE (test code = 5630110421) 0.74 mg/dL 0.50-1.04 TOTAL BILI (test code = 3034988131) 0.3 mg/dL 0.1-1.1 CALCIUM (test code = 4184457884) 9.0 mg/dL 8.6-10.6 T PROTEIN (test code = 1469336916) 7.8 g/dL 6.3-8.2 ALBUMIN (test code = 2219516079) 4.6 g/dL 3.5-5.0 ALK PHOS (test code = 6893254925) 104 U/L 34-122 ALTv (test code = 1742-6) 16 U/L 5-35 AST(SGOT) (test code = 0151978373) 22 U/L 13-40 eGFR (test code = 8959114627) mL/min/1.73m2 FRED (test code = FRED) Association of Glomerular Filtration Rate (GFR) and Staging of Kidney Disease* + --+ --+ ------+| GFR (mL/min/1.73 m2) ?| With Kidney Damage ?| ?Without Kidney Damage+ --------+ --------+ +| ?>90 ?| ?Stage one ?| ? Normal ?+ ---+ ---+ -------+| ?60-89 ?| ?Stage two ?| ? Decreased GFR ? + --+ --+ ------+| ?30-59 ?| ?Stage three ?| ? Stage three ? + --+ --+ ------+| ?15-29 ?| ?Stage four ? | ? Stage four ?+ ---+ ---+ -------+| ?<15 (or dialysis) ? ?| ?Stage five ? | ? Stage five ?+ ---+ ---+ -------+ *Each stage assumes the associated GFR level has been in effect for at least three months. ?Stages 1 to 5, with or without kidney disease, indicate chronic kidney disease. Notes: Determination of stages one and two (with eGFR >59mL/min/1.73 m2) requires estimation of kidney damage for at least three months as defined by structural or functional abnormalities of the kidney, manifested by either:Pathological abnormalities or Markers of kidney damage (including abnormalities in the composition of the blood or urine or abnormalities in imaging tests). Lab Interpretation (test code = 51238-5) Abnormal [facility] CampusLIPASE2022-12-10 00:49:27* Test Item Value Reference Range Interpretation Comme nts LIPASE (test code = 1021987492) 132 U/L 0-220 Lab Interpretation (test cod e = 54363-7) Normal [facility]PO[facility] [id number] 00:45:00* Test Item Value Reference Range Interpretation Comme nts POCT PREG (test code = 1605) NEGATIVE On board controls acceptable with C Line (test code = 3574) present POCT PREG LOT # (test code = 3575) [id number] POCT PREG TEST DATE ( test code = 3576) 10/03/2023 Lab Interpretation (test cod e = 03320-1) Normal [facility] CampusCBC WITH [id number] 00:35:01* Test Item Value Reference Range Interpretation Comme nts WBC (test code = 6690-2) See_Comment [Automated [employer]] The system which generated this result transmitted reference range: 4.30 - 11.10 10*3/?L. The reference range was not used to interpret this result as normal/abnormal. RBC (test code = 789-8) See_Comment [Automated [employer]] The system which generated this result transmitted reference range: 3.93 - 5.25 10*6/?L. The reference range was not used to interpret this result as normal/abnormal. HGB (test code = 718-7) 11.8 g/dL 11.6-15.0 HCT (test code = 4544-3) 36.9 % 35.7-45.2 MCV (test code = 787-2) 79.2 fL 80.6-95.5 L MCH (test code = 785-6) 25.3 pg 25.9-32.8 L MCHC (test code = 786-4) 32.0 g/dL 31.6-35.1 RDW-SD (test code = 44845-8) 41.8 fL 39.0-49.9 RDW-CV (test code = 788-0) 14.6 % 12.0-15.5 PLT (test code = 777-3) See_Comment H [Automated messa ge] The system which generated this result transmitted reference range: 166 - 358 10*3/?L. The reference range was not used to interpret this result as normal/abnormal. MPV (test code = 44245-9) 10.9 fL 9.5-12.9 NRBC/100 WBC (test code = 6862551824) See_Comment [Automated Segetis ssage] The system which generated this result transmitted reference range: 0.0 - 10.0 /100 WBCs. The reference range was not used to interpret this result as normal/abnormal. NRBC x10^3 (test code = [id number]) See_Comment [Automated messa ge] The system which generated this result transmitted reference range: 10*3/?L. The reference range was not used to interpret this result as normal/abnormal. GRAN MAT (NEUT) % (test code = 770-8) 59.4 % IMM GRAN % (test code = 4932153596) 0.80 % LYMPH % (test code = 736-9) 28.6 % MONO % (test code = 5905-5) 7.7 % EOS % (test code = 713-8) 2.7 % BASO % (test code = 706-2) 0.8 % GRAN MAT x10^3(ANC) (test code = 1329045207) 6.12 10*3/uL 1.88-7.09 IMM GRAN x10^3 (test code = 0092200933) 0.08 10*3/uL 0.00-0.06 H LYMPH x10^3 (test code = 731-0) 2.94 10*3/uL 1.32-3.29 MONO x10^3 (test code = 742-7) 0.79 10*3/uL 0.33-0.92 EOS x10^3 (test code = 711-2) 0.28 10*3/uL 0.03-0.39 BASO x10^3 (test code = 704-7) 0.08 10*3/uL 0.01-0.07 H Lab Interpretation (test code = 51977-2) [facility]normal [facility]) WITH REFLEX TITER 2022-02-26 05:30:56* Test Item Value Reference Range Interpretation Comme nts ANTI-NUCLEAR ANTIBODIES (test code = 3506) NEGATIVE NEGATIVE Methodology is I ndirect Immunofluorescent Assay (IFA) with a titering system using [id number] cells (Hep2 cells transfected with SS-A/Ro). SHON PATTERN (REPORTED TITER) (test code = 39384) SEE BELOW HOMOGENEOUS (test code = 38487) NEGATIVE TITER NEGATIVE SPECKLED (test code = 697679) NEGATIVE TITER NEGATIVE DENSE FINE SPECKLED (test code = 12893) NEGATIVE TITER NEGATIVE CENTROMERE (test code = 969438) NEGATIVE TITER NEGATIVE COARSE SPECKLED (test code = 132958) NEGATIVE TITER NEGATIVE DISCRETE NUCLEAR DOTS (test code = 161746) NEGATIVE TITER NEGATIVE NUCLEOLAR (test code = 896920) NEGATIVE TITER NEGATIVE NUCLEAR MEMBRANE (test code = 573424) NEGATIVE TITER NEGATIVE CYTO. RETICULAR (CLEVE) (test code = 816988) NEGATIVE NEGATIVE COMMENTS (test code = 939710) NONE METHOD (test code = 15734) (NOTE) NOTE: EFFECTIVE 02/09/2022, METHOD IS TRANSITIONED TO THE ADTELLIGENCE IFA PLATFORM. THE METHOD INCLUDES A SCREENTHRESHOLD OF 1:80, DIGITIZED AND COMPUTER ALGORITHM-ASSISTEDINTER PRETATION OF TITERS AND DIGITAL PATTERNS, AND HEp-2 CELLLINE SUBSTRATE. ADDITIONAL UNUSUAL PATTERNS WILL BE GIVEN ASCOMMENTS. FOR MORE INFORMATION, SEE [email or web address] richyg TSH, THIRD [id number] 09:27:28* Test Item Value Reference Range Interpretation Comme nts TSH, THIRD GENERATION (test code = 2821) 11.400 UIU/ML 0.400-4.100 H VITAMIN [id number] 09:27:28* Test Item Value Reference Range Interpretation Comme [facility] VITAMIN B-12 (test code = 2840) 777 PG/ML 200-950 UNLESS OTHERWISE INDICATED, ALL TESTING PERFORMED [facility] [employer] [employer] [address] [place] [id number] DIVING JUDGE: EVA MCKENZIE M.D. CLIA NUMBER [id number] [facility] [place]. [id number] CBC W/AUTO DIFF WITH [id number] 06:51:56* Test Item Value Reference Range Interpretation Comme nts WBC (test code = 1001) 9.6 K/UL 3.5-11.0 RBC (test code = 1002) 4.43 M/UL 3.80-5.40 HEMOGLOBIN (test code = 1003) 11.1 G/DL 11.5-15.5 L HEMATOCRIT (test code = 1004) 36.3 % 34.0-45.0 MCV (test code = 1005) 81.9 fL 80.0-99.0 MCH (test code = 1006) 25.1 PG 25.0-33.0 MCHC (test code = 1007) 30.6 G/DL 31.0-36.0 L RDW (test code = 1038) 15.6 % 11.5-15.0 H NEUTROPHILS (test code = 1008) 66.7 % LYMPHOCYTES (test code = 1010) 21.6 % MONOCYTES (test code = 1011) 7.7 % EOSINOPHILS (test code = 1012) 2.5 % BASOPHILS (test code = 1013) 0.8 % IMMATURE GRANULOCYTES (test code = 1036) 0.7 % NUCLEATED RBCS (test code = 1065) 0.0 /100 WBC'S See_Comment [Automated Yappea ge] The system which generated this result transmitted reference range: 0.0. The reference range was not used to interpret this result as normal/abnormal. PLATELET COUNT (test code = 1015) 429 K/UL 130-400 H ABSOLUTE NEUTROPHILS (test code = 1066) 6.43 K/UL 1.50-7.50 ABSOLUTE LYMPHOCYTES (test code = 1067) 2.08 K/UL 1.00-4.00 ABSOLUTE MONOCYTES (test code = 1068) 0.74 K/UL 0.20-1.00 ABSOLUTE EOSINOPHILS (test code = 1040) 0.24 K/UL 0.00-0.50 ABSOLUTE BASOPHILS (test code = 1069) 0.08 K/UL 0.00-0.20 ABS IMMATURE GRANULOCYTES (test code = 1020) 0.07 K/UL 0.00-0.10 ABS NUCLEATED RBCS (test code = 69398) 0.00 K/UL 0.00-0.11 HEMOGLOBIN [id number] 06:47:57* Test Item Value Reference Range Interpretation Comme nts HEMOGLOBIN A1c (test code = 57049) 5.4 % 4.2-5.6 COMPREHENSIVE METABOLIC [id number] 06:46:41* Test Item Value Reference Range Interpretation Comme nts GLUCOSE (test code = 7) 96 MG/DL 70-99 BUN (test code = 2207) 8 MG/DL 6-20 CREATININE (test code = 2213) 0.97 MG/DL 0.60-1.30 eGFR (2020 CKD-EPI) (test code = 16751) 79 ML/MIN/1.73 >60 CALC BUN/CREAT (test code = 2234) 8 RATIO 6-28 SODIUM (test code = 223) 138 MEQ/L 133-146 POTASSIUM (test code = 2228) 5.0 MEQ/L 3.5-5.4 CHLORIDE (test code = 2215) 101 MEQ/L 95-107 CARBON DIOXIDE (test code = 2206) 26 MEQ/L 19-31 CALCIUM (test code = 2208) 10.2 MG/DL 8.5-10.5 PROTEIN, TOTAL (test code = 2228) 7.3 G/DL 6.1-8.3 ALBUMIN (test code = 2200) 4.4 G/DL 3.5-5.2 CALC GLOBULIN (test code = 2240) 2.9 G/DL 1.9-3.7 CALC A/G RATIO (test code = 2233) 1.5 RATIO 1.0-2.6 BILIRUBIN, TOTAL (test code = 2206) <0.2 MG/DL See_Comment [Automated me ssage] The system which generated this result transmitted reference range: <=1.2. The reference range was not used to interpret this result as normal/abnormal. ALKALINE PHOSPHATASE (test code = 2204) 107 U/L 40-114 AST (test code = 2218) 14 U/L 9-40 ALT (test code = 2219) 10 U/L 5-40 LIPID [id number] 06:46:41* Test Item Value Reference Range Interpretation Comme nts CHOLESTEROL (test code = 2210) 190 MG/DL <200 TRIGLYCERIDES (test code = 2232) 135 MG/DL <150 HDL CHOLESTEROL (test code = 2220) 60 MG/DL >39 CALC LDL CHOL (test code = 2237) 105 MG/DL <100 H NOTE: CALCULATED LDL IS BASED ON SUMIT-HERRERA METHOD WHICHINCLUDES ADJUSTABLE TRIGLYCERIDE:VLDL CHOLESTEROL RATIO.THIS FACTOR VARIES BY MEASURED TRIGLYCERIDE AND NON-HDLCHOLESTEROL CONCENTRATIONS WITH INCREASED CALCULATED LDL SEENIN HIGHER TRIGLYCERIDE OR LOWER NON-HDL SPECIMENS. FOR MOREINFORMATION, SEE CLIENT ANNOUNCEMENT AT [email or web address] [email or web address] RATIO LDL/HDL (test code = 2238) 1.75 RATIO <3.22 SARS-CoV-2 (COVID-19), RT-PCR/[id number] 14:35:57* Test Item Value Reference Range Interpretation Comments SARS-CoV-2 INTERPRETATION (test code = 93178) NEGATIVE SEE NOTE SARS-CoV-2 R NA NOT DETECTEDNegative results do not preclude SARS-CoV-2 infection and should notbe used as the sole basis for patient management decisions. Negativeresults must be combined with clinical observations, patient history,and epidemiological information. Optimum specimen types and timingfor peak viral levels during infections caused by SARS-CoV-2 have notbeen determined. Collection of multiple specimens or types ofspecimens may be necessary to detect virus. Improper specimencollection and handling, sequence variability under primers/probes,or organism present below the limit of detection may lead to falsenegative results. Positive and negative predictive values oftesting are highly dependent on prevalence. False negative testresults are more likely when prevalence is high. SOURCE (test code = 04325) NASOPHARYNGEAL Note: Methodolog y is Gurdeep Petra Real-Time RT-PCR. The expected result or reference range is NEGATIVE (Not Detected). For more information regarding COVID-19 testing to include clinicalinformation, methodology detail, intended use, FDA authorization andrecommended fact sheets for patients or healthcare providers, see [employer] Announcement: SARS-CoV-2 (COVID-19) by NAAT at URL below (note,fact sheets are provided by method given in report:[email or web address] Alternatively, see downloadable PDF fact sheet at:[email or web address] UNLESS OTHERWISE INDICATED, ALL TESTING PERFORMED [facility] [address] [place] [address] DIVING JUDGE: EVA MCKENZIE M.D. CLIA NUMBER [id number] [facility] [place]. [id number]"
[2024-08-09] MEDS ORDERED: ONDANSETRON 4 MG/2 ML VIAL ONE ×3 (09:05→22:25)
[2024-08-09] MEDS ORDERED: NA CHLORIDE 0.9% 1,000 ML ONE ×3 (09:05→22:25)
[2024-08-09] MEDS ORDERED: MORPHINE 4 MG/ML SYR ONE (09:09)
[2024-08-09] MEDS ORDERED: FAMOTIDINE 20 MG/2 ML VIAL IV ONE (09:09)
[2024-08-09] MEDS ORDERED: LIDOCAINE VISCOUS 2% 10ML ORAL SOLN ONE (09:25)
[2024-08-09] MEDS ORDERED: MAGNES/ALUMIN/SIMET 30ML UCUP ONE (09:25)
[2024-08-09 09:31] LABS: Specific Gravity 1.014 (1.005-1.030)
[2024-08-09 09:32] LABS: Specific Gravity 1.014 (1.005-1.030); Sqamous Epithelial <5 /HPF (None Seen); Urine Bacteria None Seen /HPF (<20); Urine Bilirubin NEGATIVE (Negative); Urine Blood Negative (Negative); Urine Clarity Turbid (Clear); Urine Color Yellow (Yellow); Urine Culture Reflex Order NOT NEEDED; Urine Glucose NEGATIVE (Negative); Urine Ketones NEGATIVE (Negative); Urine Microscopic Reflex YN ORDER UMIC; Urine Mucus Slight /HPF (None Seen); Urine Nitrite NEGATIVE (Negative); Urine Protein NEGATIVE (Negative); Urine RBC <5 /HPF (None Seen); Urine Urobilinogen Normal (Normal); Urine WBC <5 /HPF (<5); Urine WBC Clump Rare /HPF (None Seen); Urine Yeast (Budding) Trace /HPF (None Seen)
[2024-08-09 09:34] LABS: Absolute Basophils 0.1 K/uL (0-0.5); Absolute Eosinophils 0.2 K/uL (0-0.5); Absolute Lymphocytes (CBC) 3.4 K/uL (0.7-4.9); Absolute Neutrophil 4.8 K/uL (1.8-8.0); Basophils % 0.8 % (0-1.3); Eosinophils % 2.3 % (0-4.4); Hematocrit 38.3 % (36.0-45.0); Hemoglobin 13.1 g/dL (12.0-15.0); Lymphocytes % 35.9 % (15.3-44.8); MCHC 34.2 g/dL (32.0-36.0); MCV 84.8 fL (80-100); Monocytes % 10.5 % (3.3-12.3); Neutrophils % 50.5 % (41.7-73.7); Nucleated Red Blood Cells % 0.1 % (0-0); Platelets 329 thou/uL (152-406); RBC Red Blood Cell Count 4.52 M/uL (3.86-4.86); Red Cell Distribution Width 13.7 % (12.1-15.2)
[2024-08-09 09:46] LABS: ALT/SGPT 18 U/L (13-56); Albumin 3.3 g/dL (3.4-5.0); Albumin/Globulin Ratio 0.9 (1.1-1.8); Alkaline Phosphatase 80 U/L (45-117); Anion Gap 7.6 mEq/L (5.0-15.0); BUN Blood Urea Nitrogen 8 mg/dL (7-18); Bicarbonate 25 mEq/L (21-32); Bilirubin Total 0.3 mg/dL (0.2-1.0); Globulin 3.7 g/dL (2.3-3.5); Glomerular Filtration Rate 79 ml/min (=/>90); Glucose Level 90 mg/dL (74-106); Lipase 25 U/L (13-75); Potassium 3.6 mEq/L (3.5-5.1); Sodium Level 139 mEq/L (136-145)
[2024-08-09 09:47] LABS: AST/SGOT < 10 U/L (15-37)
--- NOTE | 2024-08-09 10:42 | RAD REPORT ---
EXAMINATION: CT ABDOMEN AND PELVIS WITH CONTRAST CLINICAL INDICATION: ABD PAIN TECHNIQUE: CT abdomen and pelvis was performed, after the administration of IV contrast, as per [facility] protocol. Axial, sagittal and coronal reconstructions were obtained. One or more of the following dose reduction techniques were used: Automated exposure control, adjustment of the mA and k V according to patient size, and iterative reconstruction. Unless otherwise specified, incidental findings do not require dedicated imaging follow-up. COMPARISON: 03/24/2017 FINDINGS: LOWER CHEST: The visualized lung bases are clear. Small hiatal hernia. LIVER: Mild fatty liver is present. No focal lesion or biliary dilatation is seen. Cholecystectomy clips. SPLEEN: Normal size. No focal lesion. PANCREAS: No mass, ductal dilation, or yamileth-pancreatic fluid. ADRENALS: Normal; no mass. KIDNEYS: Normal size and contour. No hydronephrosis. GASTROINTESTINAL TRACT: No evidence of free air, significant intra-abdominal free fluid, bowel obstru ction or abscess. Significant stool retention is seen particularly in the cecum images dilated and positioned along the midline lower abdomen APPENDIX: Appendix not visualized, but no inflammatory changes in region of appendix. LYMPH NODES: No lymphadenopathy. MUSCULOSKELETAL: No acute or suspicious osseous abnormality. ADDITIONAL FINDINGS: Small fat-containing clinical hernia. IMPRESSION: Significant stool distention particularly within the cecum which is positioned atypically along the m idline lower abdomen, cecal bascule is a possibility.
[2024-08-09] MEDS ORDERED: BISACODYL 10 MG RECTAL SUPP ONE (11:15)
[2024-08-09] MEDS ORDERED: LACTULOSE 20 GM/30 ML UCUP ONE (11:16)
--- NOTE | 2024-08-09 11:26 | ER ---
Nurse's Notes [facility] Name: Missy Leon Age: 39 yrs Sex: Female : 1985 Arrival Date: 08/09/2024 Time: 08:34 Bed 8 Private MD: Diagnosis: Vomiting;Epigastric abdominal tenderness;Constipation-cecal dilation Presentation: 08/09 09:01 Chief complaint: Patient states: woke up with upper abd pain and bloating pain , iw vomited blood twice. Coronavirus screen: At this time, the client does not indicate any symptoms associated with coronavirus-19. Ebola Screen: No symptoms or risks identified at this time. Initial Sepsis Screen: Does the patient meet any 2 criteria? No. Patient's initial sepsis screen is negative. Does the patient have a suspected source of infection? No. Patient's initial sepsis screen is negative. Risk Assessment: Do you want to hurt yourself or someone else? Patient reports no desire to harm self or others. Onset of symptoms was August 09, 2024. 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 - Infectious Disease History:: Denies. - Social history:: Smoking status: Smoking status: Reported history of juuling and/or vaping. Screenin:15 [facility] ED Fall Risk Assessment (Adult) History of falling in the last 3 months, kc6 including since admission No falls in past 3 months (0 pts) Confusion or Disorientation No (0 pts) Intoxicated or Sedated No (0 pts) Impaired Gait No (0 pts) Mobility Assist Device Used No (0 pt) Altered Elimination No (0 pt) Score/Fall Risk Level 0 - 2 = Low Risk Oriented to surroundings, Maintained a safe environment, Educated pt \T\ family on fall prevention, incl call for assistance when getting out of bed. Abuse screen: Denies threats or abuse. Denies injuries from another. Nutritional screening: No deficits noted. Tuberculosis screening: No symptoms or risk factors identified. Assessment: 09:15 General: Appears in no apparent distress. uncomfortable, well groomed, well developed, kc6 Behavior is cooperative, appropriate for age, crying, restless. Pain: Complains of pain in epigastric area Pain began suddenly, 0300 Is continuous, Alleviated by repositioning, Noted to be grimacing, guarding, moaning, resistant to movement. Neuro: Level of Consciousness is awake, alert, obeys commands, Oriented to person, place, time, situation, Appropriate for age. Cardiovascular: Capillary refill < 3 seconds. Respiratory: Airway is patent Trachea midline Respiratory effort is even, unlabored, Respiratory pattern is regular, symmetrical. GI: Abdomen is round Pt is actively vomiting clear fluid, Bowel sounds present X 4 quads. Abd is soft X 4 quads Abdomen is tender to palpation in epigastric area Guarding noted in epigastric area Reports bloating, nausea, vomiting, Patient currently denies diarrhea. : No signs and/or symptoms were reported regarding the genitourinary system. EENT: No signs and/or symptoms were reported regarding the EENT system. Derm: No signs and/or symptoms reported regarding the dermatologic system. Skin is intact, is healthy with good turgor, Skin is pink, warm \T\ dry. Musculoskeletal: No signs and/or symptoms reported regarding the musculoskeletal system. Circulation, motion, and sensation intact. Range of motion: intact in all extremities. 10:09 Reassessment: Patient appears in no apparent distress at this time. No changes from kc6 previously documented assessment. Patient and/or family updated on plan of care and expected duration. Pain level reassessed. Patient is alert, oriented x 3, equal unlabored respirations, skin warm/dry/pink. Patient states feeling better. Patient states symptoms have improved. 11:09 Reassessment: Patient appears in no apparent distress at this time. No changes from kc6 previously documented assessment. Patient and/or family updated on plan of care and expected duration. Pain level reassessed. Patient is alert, oriented x 3, equal unlabored respirations, skin warm/dry/pink. 12:09 Reassessment: Patient appears in no apparent distress at this time. No changes from kc6 previously documented assessment. Patient and/or family updated on plan of care and expected duration. Pain level reassessed. Patient is alert, oriented x 3, equal unlabored respirations, skin warm/dry/pink. 13:07 Reassessment: Patient appears in no apparent distress at this time. No changes from 6 previously documented assessment. Patient and/or family updated on plan of care and expected duration. Pain level reassessed. Patient is alert, oriented x 3, equal unlabored respirations, skin warm/dry/pink. 15:55 Reassessment: Patient appears in no apparent distress at this time. No changes from kc6 previously documented assessment. Patient and/or family updated on plan of care and expected duration. Pain level reassessed. Patient is alert, oriented x 3, equal unlabored respirations, skin warm/dry/pink. Vital Signs: 09:01 BP 107 / 70; Pulse 117; Resp 19; Temp 97.8; Pulse Ox 98% ; Weight 81.65 kg; Height 5 iw ft. 1 in. ; Pain 8/10; 10:09 BP 119 / 85; Pulse 110; Resp 18 S; Pulse Ox 100% on R/A; kc6 13:07 BP 114 / 82; Pulse 77; Resp 17 S; Pulse Ox 100% on R/A; kc6 15:55 BP 123 / 82; Pulse 90; Resp 16 S; Pulse Ox 98% on R/A; kc6 09:01 Body Mass Index 34.01 (81.65 kg, 154.94 cm) iw 09:01 Pain Scale: Adult iw ED Course: 08:36 Patient arrived in ED. al6 09:01 Triage completed. iw 09:02 Arm band placed on. iw 09:04 Ray Malhotra MD is Attending Physician. [facility] 09:14 Ju Patel, RN is Primary Nurse. kc6 09:15 Patient has correct armband on for positive identification. Bed in low position. Call [facility] light in reach. Side rails up X2. Pulse ox on. NIBP on. Door closed. Noise minimized. Lights dimmed. Warm blanket given. Pillow given. Assisted to bathroom. 09:15 Initial lab(s) drawn, by me, sent to lab. Inserted saline lock: 20 gauge in right [facility] antecubital area, using aseptic technique. Blood collected. Flushed with 10 mL NS. Patient maintains SpO2 saturation greater than 95% on room air. 10:15 CT Abd/Pelvis - IV Contrast Only In Process Unspecified. EDMS 11:24 Elliott Tyson is Hospitalizing Provider. herlinda 15:56 No provider procedures requiring assistance completed. Patient admitted, IV remains in kc6 place. 20:31 Provided Education on: need for admission. bm8 Administered Medications: 09:13 Drug: Famotidine IVP 20 mg IVP once; dilute with 10 mL 0.9% NaCl; give over 2 minutes ld1 Route: IVP; Site: right antecubital; 10:10 Follow up: Response: No adverse reaction kc6 09:13 Drug: Ondansetron IVP 4 mg IVP once; over 2 minutes Route: IVP; Site: right antecubital;ld1 10:10 Follow up: Response: No adverse reaction; Nausea is decreased; Vomiting decreased kc6 09:13 Drug: NS 0.9% IV 1000 ml IV at 1 bolus Per protocol; to be given as a bolus over 60 ld1 minutes Route: IV; Rate: 1 bolus; Site: right antecubital; 10:52 Follow up: Response: No adverse reaction; IV Status: Completed infusion; IV Intake: kc6 1000ml 09:21 Drug: morphine IVP or IV 4 mg IVP once over 4 mins Route: IVP; Infused Over: 4 mins; kc6 Site: right antecubital; 10:10 Follow up: Response: No adverse reaction; Pain is decreased; RASS: Alert and Calm (0) kc6 09:27 Drug: GI Cocktail without - (Maalox PO 30 ml, Lidocaine Mucous Membrane 2 % 15 kc6 ml) PO once Route: PO; 10:09 Follow up: Response: No adverse reaction; Pain is decreased kc6 11:19 Drug: Lactulose PO 30 grams 45 ml PO once Volume: 45 ml; Route: PO; kc6 13:07 Follow up: Response: No adverse reaction kc6 11:19 Drug: Dulcolax [place] Suppository 10 mg W[place] once Route: W[place]; kc6 13:07 Follow up: Response: No adverse reaction kc6 Medication: 15:56 VIS not applicable for this client. kc6 Intake: 10:52 IV: 1000ml; Total: 1000ml. kc6 Outcome: 11:25 Decision to Hospitalize by Provider. herlinda 15:56 Admitted to ER Hold. Please see [facility] for further documentation. kc6 15:56 Condition: good 15:56 Instructed on the need for admit, 08/10 11:59 Patient left the ED. iw Signatures: Dispatcher [employer] Ray Umaña MD MD cha Williams, Irene, RN RN iw Unique Willis RN RN ld1 Ju Patel RN RN kc6 Francisco J Bonilla RN RN bm8 Yojana Garcia6
--- NOTE | 2024-08-09 11:26 | EDPHYS ---
Physician Documentation [facility] Name: Missy Leon Age: 39 yrs Sex: Female : 1985 Arrival Date: 08/09/2024 Time: 08:34 Bed 8 Private MD: JAMES Physician Ray Malhotra HPI: 08/09 11:14 This 39 yrs old Female presents to ER via Wheelchair with complaints of herlinda Abdominal Pain, Nausea/Vomiting. 11:14 The patient presents to the emergency department with nausea, vomiting, that is herlinda continuous, abdominal pain, of the right upper quadrant and left upper quadrant. Onset: The symptoms/episode began/occurred 1 day(s) ago. Possible causes: unknown. The symptoms are aggravated by movement, pressure, food , The symptoms are alleviated by nothing. remaining still. Associated signs and symptoms: Pertinent positives: abdominal pain, nausea, vomiting. Severity of symptoms: At their worst the symptoms were moderate in the emergency department the symptoms are unchanged. The patient has experienced similar episodes in the past, several times. 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 - Infectious Disease History:: Denies. - Social history:: Smoking status: Smoking status: Reported history of juuling and/or vaping. ROS: 11:15 Constitutional: Negative for fever, chills, and weight loss, Eyes: Negative for injury, herlinda pain, redness, and discharge, ENT: Negative for injury, pain, and discharge, Neck: Negative for injury, pain, and swelling, Cardiovascular: Negative for chest pain, palpitations, and edema, Respiratory: Negative for shortness of breath, cough, wheezing, and pleuritic chest pain, Back: Negative for injury and pain, : Negative for injury, bleeding, discharge, and swelling, MS/Extremity: Negative for injury and deformity, Skin: Negative for injury, rash, and discoloration, Neuro: Negative for headache, weakness, numbness, tingling, and seizure, Psych: Negative for depression, anxiety, suicide ideation, homicidal ideation, and hallucinations, Allergy/Immunology: Negative for hives, rash, and allergies, Endocrine: Negative for neck swelling, polydipsia, polyuria, polyphagia, and marked weight changes, Hematologic/Lymphatic: Negative for swollen nodes, abnormal bleeding, and unusual bruising, 11:15 Abdomen/GI: Positive for abdominal pain, nausea and vomiting, abdominal cramps, abdominal distension, of the right lower quadrant and left lower quadrant, Exam: 11:15 Constitutional: This is a well developed, well nourished patient who is awake, alert, herlinda and in no acute distress. Head/Face: Normocephalic, atraumatic. Eyes: Pupils equal round and reactive to light, extra-ocular motions intact. Lids and lashes normal. Conjunctiva and sclera are non-icteric and not injected. Cornea within normal limits. Periorbital areas with no swelling, redness, or edema. ENT: Nares patent. No nasal discharge, no septal abnormalities noted. Tympanic membranes are normal and external auditory canals are clear. Oropharynx with no redness, swelling, or masses, exudates, or evidence of obstruction, uvula midline. Mucous membranes moist. Neck: Trachea midline, no thyromegaly or masses palpated, and no cervical lymphadenopathy. Supple, full range of motion without nuchal rigidity, or vertebral point tenderness. No Meningismus. Chest/axilla: Normal chest wall appearance and motion. Nontender with no deformity. No lesions are appreciated. Cardiovascular: Regular rate and rhythm with a normal S1 and S2. No gallops, murmurs, or rubs. Normal PMI, no JVD. No pulse deficits. Respiratory: Lungs have equal breath sounds bilaterally, clear to auscultation and percussion. No rales, rhonchi or wheezes noted. No increased work of breathing, no retractions or nasal flaring. Back: No spinal tenderness. No costovertebral tenderness. Full range of motion. Skin: Warm, dry with normal turgor. Normal color with no rashes, no lesions, and no evidence of cellulitis. MS/ Extremity: Pulses equal, no cyanosis. Neurovascular intact. Full, normal range of motion., bilateral aka Neuro: Awake and alert, GCS 15, oriented to person, place, time, and situation. Cranial nerves II-XII grossly intact. Motor strength 5/5 in all extremities. Sensory grossly intact. Cerebellar exam normal. Normal gait. Psych: Awake, alert, with orientation to person, place and time. Behavior, mood, and affect are within normal limits. 11:15 Abdomen/GI: Inspection: distension, that is mild, Bowel sounds: active, Palpation: moderate abdominal tenderness, in the right upper quadrant, left upper quadrant and right lower quadrant, Liver: no appreciated palpable abnormalities, Hernia: not appreciated, Vital Signs: 09:01 BP 107 / 70; Pulse 117; Resp 19; Temp 97.8; Pulse Ox 98% ; Weight 81.65 kg; Height 5 iw ft. 1 in. ; Pain 8/10; 10:09 BP 119 / 85; Pulse 110; Resp 18 S; Pulse Ox 100% on R/A; kc6 13:07 BP 114 / 82; Pulse 77; Resp 17 S; Pulse Ox 100% on R/A; kc6 15:55 BP 123 / 82; Pulse 90; Resp 16 S; Pulse Ox 98% on R/A; kc6 09:01 Body Mass Index 34.01 (81.65 kg, 154.94 cm) iw 09:01 Pain Scale: Adult iw MDM: 09:04 Medical Screening Exam initiated herlinda 11:18 Differential diagnosis: Nonspecific abd pain, pancreatitis, appendicitis, herlinda diverticulitis, viral gastroenteritis, gastroenteritis, bowel obstruction, diverticulitis, Dysmenorrhea. Data reviewed: vital signs, nurses notes, lab test result(s), radiologic studies, CT scan. Consideration of Admission/Observation Patient was admitted/placed on observation. Escalation of care including admission/observation considered. I considered the following discharge prescriptions or medication management in the emergency department Medications were administered in the Emergency Department. See MAR. Independent interpretation of the following test(s) in the Emergency Department CT Scan: My interpretation is ct abd pelvis. Test considered but Not performed: EKG: no ekg. Historians other than the Patient: pt well informed. Care significantly affected by the following chronic conditions: Obesity, hiatal hernia. Counseling: I had a detailed discussion with the patient and/or guardian regarding the historical points, exam findings, and any diagnostic results supporting the discharge/admit diagnosis, lab results, radiology results, the need for further work-up and treatment in the hospital. 08/09 09:05 Order name: CBC with Diff; Complete Time: 09:53 herlinda 08/09 09:05 Order name: CMP; Complete Time: 09:53 herlinda 08/09 09:05 Order name: Lipase; Complete Time: 09:53 hrelinda 08/09 09:05 Order name: Test, Urine; Complete Time: 09:53 herlinda 08/09 09:05 Order name: Urinalysis w/ reflexes; Complete Time: 09:53 herlinda 08/09 12:55 Order name: Urinalysis w/ reflexes EDMS 08/09 12:55 Order name: Basic Metabolic Panel EDMS 08/09 12:55 Order name: Basic Metabolic Panel EDMS 08/09 12:55 Order name: Basic Metabolic Panel EDMS 08/09 12:55 Order name: Basic Metabolic Panel EDMS 08/09 12:55 Order name: Basic Metabolic Panel EDMS 08/09 12:55 Order name: Basic Metabolic Panel EDMS 08/09 12:55 Order name: Basic Metabolic Panel EDMS 08/09 12:55 Order name: Basic Metabolic Panel EDMS 08/09 12:55 Order name: CBC with Automated Diff EDMS 08/09 12:55 Order name: CBC with Automated Diff EDMS 08/09 12:55 Order name: CBC with Automated Diff EDMS 08/09 12:55 Order name: CBC with Automated Diff EDMS 08/09 12:55 Order name: CBC with Automated Diff EDMS 08/09 12:55 Order name: CBC with Automated Diff EDMS 08/09 12:55 Order name: CBC with Automated Diff EDMS 08/09 12:55 Order name: CBC with Automated Diff EDMS 08/09 12:55 Order name: Magnesium EDMS 08/09 12:55 Order name: Magnesium EDMS 08/09 12:55 Order name: Magnesium EDMS 08/09 12:55 Order name: Magnesium EDMS 08/09 12:55 Order name: Magnesium EDMS 08/09 12:55 Order name: Magnesium EDMS 08/09 12:55 Order name: Magnesium EDMS 08/09 12:55 Order name: Magnesium EDMS 08/09 12:55 Order name: Phosphorus EDMS 08/09 12:55 Order name: Phosphorus EDMS 08/09 12:55 Order name: Phosphorus EDMS 08/09 12:55 Order name: Phosphorus EDMS 08/09 12:55 Order name: Phosphorus EDMS 08/09 12:55 Order name: Phosphorus EDMS 02/05 12:55 Order name: Phosphorus EDMS 08/09 12:55 Order name: Phosphorus EDMS 08/09 09:10 Order name: CT Abd/Pelvis - IV Contrast Only; Complete Time: 11:02 [facility] 08/09 09:06 Order name: IV Saline Lock; Complete Time: 09:13 [facility] 08/09 09:06 Order name: Labs collected and sent; Complete Time: 09:13 [facility] 08/09 11:32 Order name: NPO; Complete Time: 12:15 [facility] Administered Medications: 09:13 Drug: Famotidine IVP 20 mg IVP once; dilute with 10 mL 0.9% NaCl; give over 2 minutes ld1 Route: IVP; Site: right antecubital; 10:10 Follow up: Response: No adverse reaction kc6 09:13 Drug: Ondansetron IVP 4 mg IVP once; over 2 minutes Route: IVP; Site: right antecubital;ld1 10:10 Follow up: Response: No adverse reaction; Nausea is decreased; Vomiting decreased kc6 09:13 Drug: NS 0.9% IV 1000 ml IV at 1 bolus Per protocol; to be given as a bolus over 60 ld1 minutes Route: IV; Rate: 1 bolus; Site: right antecubital; 10:52 Follow up: Response: No adverse reaction; IV Status: Completed infusion; IV Intake: kc6 1000ml 09:21 Drug: morphine IVP or IV 4 mg IVP once over 4 mins Route: IVP; Infused Over: 4 mins; kc6 Site: right antecubital; 10:10 Follow up: Response: No adverse reaction; Pain is decreased; RASS: Alert and Calm (0) kc6 09:27 Drug: GI Cocktail without - (Maalox PO 30 ml, Lidocaine Mucous Membrane 2 % 15 kc6 ml) PO once Route: PO; 10:09 Follow up: Response: No adverse reaction; Pain is decreased kc6 11:19 Drug: Lactulose PO 30 grams 45 ml PO once Volume: 45 ml; Route: PO; kc6 13:07 Follow up: Response: No adverse reaction kc6 11:19 Drug: Dulcolax CT Suppository [address] once Route: CT; kc6 13:07 Follow up: Response: No adverse reaction kc6 Disposition Summary: 08/09/24 11:25 Hospitalization Ordered Notes: Hospitalization Status: Observation [facility] Provider: Elliott Tyson cha Condition: Fair herlinda Problem: new herlinda Symptoms: have improved herlinda Bed/Room Type: Standard herlinda Location: Telemetry/MedSurg (Inpatient)(08/10/24 10:50) bc6 Room Assignment: 419(08/10/24 11:07) bc6 Diagnosis - Vomiting herlinda - Epigastric abdominal tenderness herlinda - Constipation - cecal dilation herlinda Forms: - Medication Reconciliation Form herlinda - SBAR form herlinda - Leadership Thank You Letter herlinda Signatures: Dispatcher [employer] EDMS Ray Malhotra MD MD cha Williams, Irene, RN RN Tamar Ahmadi RN RN ss Unique Willis RN RN ld1 Ju Patel RN RN kc6 Oneyda Barron [facility] Francisco J Bonilla RN RN bm8 Corrections: (The following items were deleted from the chart) 09:26 09:24 Abdomen Pelvis W Con+CT.RAD.BRZ ordered. EDPA EDPA 15:00 11:25 Telemetry/MedSurg (observation) herlinda ss 15:00 11:25 herlinda ss 08/10 10:50 08/09 15:00 BR ER HOLD ss 6 08/10 10:50 02 15:00 ERHOLD- ss 6 08/10 11:07 10:50 [facility]
[2024-08-09] MEDS ORDERED: ACETAMINOPHEN 325 MG TABLET PO PRN (12:46)
[2024-08-09] MEDS: NA CHLORIDE 0.9% 1,000 ML IV SCH (13:00)
[2024-08-09] MEDS: CIPROFLOXACIN 400mg IV 400 MG/200 ML BAG IV SCH (13:00)
--- NOTE | 2024-08-09 13:46 | P.HP ---
Patient History Date of Service: 08/09/24 Reason for admission: intractable N/V and abdominal pain History of Present Illness: Missy Leon is a 39 year old female with PMhx hiatal hernia who presented to the ED with intractable N/V and severe abdominal pain that began last night. She report having these episode often but they usually resolve. She follows with Dr. Diez and has had an upper GI scope with no relief offered. She reports having severe GERD and at times diarrhea. Laboratory evaluation unremarkable. CT abdomen pelvis report "Significant stool distention particularly within the cecum which is positioned atypically along the midline lower abdomen, cecal bascule is a possibility." Nancy will be admitted to hospital service for further evaluation and treatment of intractable nausea vomiting Allergies promethazine HCl [From Phenergan] Allergy (Severe, Verified 11/18/11 17:26) SEIZURES azithromycin [From Zithromax] Allergy (Verified 08/09/24 16:23) Unknown - Past Medical/Surgical History -: Hiatal hernia -: GERD -: Endoscopy - Social History Smoking Status: Never smoker Alcohol use: No CD- Drugs: No Review of Systems Other: Per HPI Physical Examination - Physical Exam General: Alert, In no apparent distress, Oriented x3 HEENT: Atraumatic, Normocephalic, PERRLA Neck: Supple Respiratory: Clear to auscultation bilaterally, Normal air movement Cardiovascular: No edema, Regular rate/rhythm Capillary refill: <2 Seconds Gastrointestinal: Hypoactive, Tenderness (Diffuse) Musculoskeletal: No clubbing Integumentary: No rashes Neurological: Normal speech, Normal tone - Studies Laboratory Data (last 24 hrs) 08/09/24 08/09/24 09:12 09:12 WBC 9.50 Hgb 13.1 Hct 38.3 Plt Count 329 Sodium 139 Potassium 3.6 BUN 8 Creatinine 0.95 Glucose 90 Total Bilirubin 0.3 AST < 10 L ALT 18 Alkaline Phosphatase 80 Lipase 25 Assessment and Plan - Plan Assessment and plan Abdominal pain associated with intractable nausea vomiting Significant stool burden in cecum History of hiatal hernia Severe GERD -CT abdomen pelvis report "Significant stool distention particularly within the cecum which is positioned atypically along the midline lower abdomen, cecal ba scule is a possibility." -carafate, Protonix twice daily -Zofran -Flagyl/ciprofloxacin -N.p.o. with IV fluids -Pain control -Stool softener -Consult Dr. Chandler DVT PPx Lovenox Full code LOS 2 to 3 days Discharge Plan: Home Plan to discharge in: 48 Hours - Advance Directives Does patient have a Living Will: No Does patient have a Durable POA for Healthcare: No
[2024-08-09] MEDS: METRONIDAZOLE 500mg IVPB 500 MG/100 ML BAG IV SCH (14:00)
[2024-08-09] MEDS ORDERED: CIPROFLOXACIN 400mg IV 400 MG/200 ML BAG IV ONE ×2 (14:22→22:53)
[2024-08-09] MEDS ORDERED: METRONIDAZOLE 500mg IVPB 500 MG/100 ML BAG IV ONE ×2 (14:22→22:26)
[2024-08-09] MEDS ORDERED: PANTOPRAZOLE 40 MG INJ ONE ×2 (14:23→22:52)
[2024-08-09] MEDS: SODIUM CHLORIDE 0.9% 10ML INJ IV PRN (14:31)
[2024-08-09] MEDS ORDERED: MORPHINE 2 MG/ML SYR ONE ×2 (14:37→22:25)
[2024-08-09] MEDS: ONDANSETRON 4 MG/2 ML VIAL IV PRN (14:50)
[2024-08-09] MEDS: MORPHINE 2 MG/ML SYR IV PRN (14:50)
[2024-08-09 16:26] VITALS: BMI 34.0
[2024-08-09] MEDS: SUCRALFATE 1GM/10ML UCUP PO SCH (16:30)
[2024-08-09] MEDS ORDERED: METRONIDAZOLE 500mg IVPB 500 MG/100 ML BAG IV SCH (17:00)
--- NOTE | 2024-08-09 18:15 | CON ---
Date of Consultation: 08/09/2024 Diagnosis: Epigastric pain. History Of Present Illness: This is a case of a 39-year-old patient with history of GE reflux. She has been having epigastric and left upper quadrant pain in the form of cramps since 1 day ago. Ameena donatoy she has them and they go away in few hours. Today, she woke up with the same and she came to the ER. She has been seen before by Dr. Diez. She says about a year ago, she had an EGD, found to horton ve some gastritis, but she could not remember anything else. She thinks she also has hiatal hernia. She denies eating anything out of the usual. Denies any dysuria, hematuria, hematochezia, melena. Allergies: ZITHROMAX. Past Medical History: Hiatal hernia. Past Surgical History: Cholecystectomy, , tubal ligations. Social History: The patient vapes. No alcohol. Review of Systems: See above. 10 points are otherwise unremarkable. Physical Examination: Vital Signs: The patient is awake, alert. HEENT: Pupils are equal and reactive. Anicteric. Neck: Supple. Chest: Clear. Abdomen: Epigastric tenderness. The rest of the abdomen is soft and depressible. She claimed it wa s crampy in nature with some reflux at the same time. No guarding or rebound. Extremities: Good capillary refill. Rectal: Deferred. Pelvic: Deferred. Breasts: Deferred. Laboratory Data: WBC count is 9.5 with hemoglobin of 13.1, and platelets of 329. Potassium 3.6 and creatinine is 0.95. Total bilirubin of 0.3. CAT scan of the abdomen and pelvis interpreted by Dr. Krueger as appendix not visualized, but no inflammatory changes in the appendix. No evidence of free ai r, free fluid, bowel obstruction, or abscess. Significant stool retention particularly in the cecum with the sacrum positioned most of the midline. Small umbilical hernia only fat containing. Pancrea s, no mass, no fluid. Spleen, normal size, mild fatty liver. Cholecystectomy clips present. Assessment: This is a 39-year-old patient with epigastric pain. CAT scan did not show anything on t hat area. There is some constipation present in the cecum, more to the midline. She has no abdomina l pain in that region. No right lower quadrant tenderness. No guarding or rebound. So, it is seen to be passing by whenever I got consulted and we were able to discuss the case with Dr. Malhotra. Dr Angi Diez will take a look at the patient and decide if endoscopy or colonoscopy is needed. From the surgical standpoint, no surgical intervention is planned at this moment. We discussed with her opti ons of also diagnostic lap and we see clinically she does not improve or something does not make ____ supposed to, she understood. She want to continue conservative treatment. LYNNETTE/OUSMANE Voice ID: [id number] Report ID: [id number]
[2024-08-09] MEDS ORDERED: SUCRALFATE 1GM/10ML UCUP ONE ×2 (18:57→22:53)
[2024-08-09] MEDS: PANTOPRAZOLE 40 MG INJ IVP SCH (21:00)
[2024-08-09] MEDS: BISACODYL E.C. 5 MG TAB PO SCH (21:00)
[2024-08-09] MEDS ORDERED: CIPROFLOXACIN 400mg IV 400 MG/200 ML BAG IV SCH (21:00)
[2024-08-09] MEDS ORDERED: BISACODYL E.C. 5 MG TAB PO ONE (22:52)
[2024-08-09] MEDS: TRAZODONE 150 MG TAB ONE (23:50)
[2024-08-09] MEDS: BUPROPRION HCL S.R. 150MG TAB PO ONE (23:54)
[2024-08-10] MEDS: BUPROPRION HCL S.R. 150MG TAB PO SCH (00:45)
[2024-08-10] MEDS: TRAZODONE 150 MG TAB PO SCH (01:33)
[2024-08-10 05:22] LABS: Absolute Eosinophils 0.2 K/uL (0-0.5); Absolute Lymphocytes (CBC) 2.6 K/uL (0.7-4.9); Absolute Monocytes 0.7 K/uL (0.1-1.3); Absolute Neutrophil 3.2 K/uL (1.8-8.0); Basophils % 0.6 % (0-1.3); Hematocrit 33.2 % (36.0-45.0); Hemoglobin 11.4 g/dL (12.0-15.0); Lymphocytes % 39.4 % (15.3-44.8); MCH 29.2 pg (27.0-35.0); MCHC 34.3 g/dL (32.0-36.0); MPV 9.1 fL (7.6-11.3); Monocytes % 9.9 % (3.3-12.3); Neutrophils % 47.1 % (41.7-73.7); Nucleated Red Blood Cells % 0.1 % (0-0); Platelets 227 thou/uL (152-406); RBC Red Blood Cell Count 3.91 M/uL (3.86-4.86); Red Cell Distribution Width 13.7 % (12.1-15.2)
[2024-08-10 05:32] LABS: Anion Gap 7.7 mEq/L (5.0-15.0); Magnesium 2.3 mg/dL (1.6-2.4); Phosphorus 2.8 mg/dL (2.5-4.9); Potassium 3.7 mEq/L (3.5-5.1)
[2024-08-10] MEDS ORDERED: ONDANSETRON 4 MG/2 ML VIAL ONE (07:46)
[2024-08-10] MEDS ORDERED: MORPHINE 2 MG/ML SYR ONE (07:46)
[2024-08-10] MEDS ORDERED: SUCRALFATE 1GM/10ML UCUP ONE (08:00)
[2024-08-10] MEDS ORDERED: METRONIDAZOLE 500mg IVPB 500 MG/100 ML BAG IV ONE (08:00)
[2024-08-10] MEDS ORDERED: BISACODYL E.C. 5 MG TAB PO ONE (08:32)
[2024-08-10] MEDS ORDERED: ENOXAPARIN 40 MG/0.4 ML SQ ONE (08:33)
[2024-08-10] MEDS ORDERED: CIPROFLOXACIN 400mg IV 400 MG/200 ML BAG IV ONE (08:33)
[2024-08-10] MEDS ORDERED: PANTOPRAZOLE 40 MG INJ ONE (08:38)
[2024-08-10] MEDS: ENOXAPARIN 40 MG/0.4 ML SQ SCH (08:40)
[2024-08-10] MEDS: HYDROMORPHONE HCL 1 MG/ML INJ IV PRN (13:09)
[2024-08-10] MEDS: NA CHLORIDE 0.9% 1,000 ML ONE (14:00)
[2024-08-10] MEDS ORDERED: LIDOCAINE 1% MPF 2 ML AMPULE ONE (14:03)
[2024-08-10] MEDS ORDERED: propofoL 200 MG/20 ML VIAL IV ONE (14:03)
[2024-08-10] MEDS: NA CIT/CITRIC AC 30 ML ORAL UDC ONE (15:05)
[2024-08-10 15:07] VITALS: O2SAT 99
--- NOTE | 2024-08-10 16:03 | P.PN ---
Date of Service: 08/10/24 Subjective Continued abdominal pain and vomiting EGD this morning with Dr. Diez ROS 10 point ROS as noted above, otherwise negative Physical Exam General: Alert and Oriented x3, NAD HEENT: Atraumatic, Normocephalic, PERRLA Neck: Supple Respiratory: Clear to auscultation bilaterally, Normal air movement Cardiovascular: No edema, NSR, S1 S2 present Capillary refill: <2 Seconds Gastrointestinal: Hypoactive, Tenderness (Diffuse), soft on palpation Musculoskeletal: No clubbing Integumentary: No rashes Neurological: Normal speech, Normal tone Vitals Reviewed Problem list Abdominal pain associated with intractable nausea vomiting Significant stool burden in cecum History of hiatal hernia Severe GERD Assessment and Plan Abdominal pain associated with intractable nausea vomiting Significant stool burden in cecum History of hiatal hernia Severe GERD -CT abdomen pelvis report "Significant stool distention particularly within the cecum which is positioned atypically along the midline lower abdomen, cecal bascule is a possibility." -carafate, Protonix twice daily -Zofran -Flagyl/ciprofloxacin -N.p.o. with IV fluids -Pain control -Stool softener -Consult Dr. Chandler, recommend GI evaluation -Dr. Diez consulted, EGD today 08/10/24 DVT PPx Lovenox Full code LOS 2 to 3 days Discharge Plan: Home Plan to discharge in: 48 Hours
[2024-08-10] MEDS: BISACODYL E.C. 5 MG TAB PO ONE (16:05)
[2024-08-10] MEDS: METOCLOPRAMIDE 10 MG/2mL INJ IV SCH (16:06)
[2024-08-10] MEDS: GOLYTELY 4000 ML PO SCH (16:35)
[2024-08-10] MEDS: MAGNESIUM CITRATE 300 ML BOT PO SCH (16:35)
--- NOTE | 2024-08-10 18:26 | PN ---
Date of Progress Note: 08/10/2024 This is a followup in a 39-year-old patient with nausea, vomiting. She has some hematemesis and she is having pain in right and left subcostal angle. No pain in the lower abdomen. Right lower quadran t, left lower quadrant, and pelvis are fine. Today, has not improved. So, Dr. Diez seen in consul t in the case to do possible endoscopy. The patient is still nauseous and oriented x3. She has defi dagoberto the pain specifically in the stomach region. She has upper endoscopies before for severe gastrit is. The chest is clear. Abdomen is soft and depressible. Once again, pinpoint in the left subcosta l area, but the rest of the abdomen is soft and depressible with no peritonitis. Extremities good ca pillary refill. Blood work is normal and WBC count is 6.7. Chemistry; sodium is 140, potassium 3.7, chloride is 111, creatinine is 0.85, total bilirubin of 0.3. CAT scan reviewed with the patient. A gain plan, let us see what the commercial lines underwriter found during the endoscopies. We might have to rep eat the CAT scan once again clinically if she does not improve and then always we have the option of diagnostic lap. Obviously, she is trying to use the nonsurgical options first. LYNNETTE/OUSMANE Voice ID: [id number] Report ID: [id number]
[2024-08-10] MEDS ORDERED: buPROPion HCL 100 MG TAB PO SCH (21:00)
--- NOTE | 2024-08-11 06:45 | P.PN ---
Date of Service: 08/11/24 Subjective ROS 10 point ROS as noted above, otherwise negative Physical Exam General: Alert and Oriented x3, NAD HEENT: Atraumatic, Normocephalic, PERRLA Neck: Supple Respiratory: Clear to auscultation bilaterally, Normal air movement Cardiovascular: No edema, NSR, S1 S2 present Capillary refill: <2 Seconds Gastrointestinal: Hypoactive, Tenderness (Diffuse), soft on palpation Musculoskeletal: No clubbing Integumentary: No rashes Neurological: Normal speech, Normal tone Vitals Reviewed Problem list Abdominal pain associated with intractable nausea vomiting Significant stool burden in cecum History of hiatal hernia Severe GERD Assessment and Plan Abdominal pain associated with intractable nausea vomiting Significant stool burden in cecum History of hiatal hernia Severe GERD -CT abdomen pelvis report "Significant stool distention particularly within the cecum which is positioned atypically along the midline lower abdomen, cecal bascule is a possibility." -carafate, Protonix twice daily -Zofran -Flagyl/ciprofloxacin -N.p.o. with IV fluids -Pain control -Stool softener -Consult Dr. Chandler, recommend GI evaluation -Dr. Diez consulted, EGD today 08/10/24 DVT PPx Lovenox Full code LOS 2 to 3 days Discharge Plan: Home Plan to discharge in: 48 Hours
[2024-08-11 07:09] LABS: Absolute Eosinophils 0.2 K/uL (0-0.5); Absolute Lymphocytes (CBC) 2.6 K/uL (0.7-4.9); Absolute Monocytes 0.7 K/uL (0.1-1.3); Absolute Neutrophil 3.5 K/uL (1.8-8.0); Basophils % 0.7 % (0-1.3); Eosinophils % 2.8 % (0-4.4); Hematocrit 34.4 % (36.0-45.0); Hemoglobin 11.7 g/dL (12.0-15.0); MCH 29.3 pg (27.0-35.0); MPV 8.7 fL (7.6-11.3); Neutrophils % 49.5 % (41.7-73.7); Nucleated Red Blood Cells % 0.1 % (0-0); Platelets 265 thou/uL (152-406); Red Cell Distribution Width 13.2 % (12.1-15.2)
[2024-08-11 07:14] LABS: Anion Gap 5.8 mEq/L (5.0-15.0); Magnesium 2.4 mg/dL (1.6-2.4); Phosphorus 2.5 mg/dL (2.5-4.9); Potassium 3.8 mEq/L (3.5-5.1)
--- NOTE | 2024-08-11 11:11 | RAD REPORT ---
EXAMINATION: CT ABDOMEN AND PELVIS WITHOUT CONTRAST CLINICAL INDICATION: Female, 39 years old.abdominal pain, possible cecal vascule TECHNIQUE: CT abdomen and pelvis was performed, without IV contrast, as per department protocol. Axia l, sagittal and coronal reconstructions were obtained. One or more of the following dose reduction techniques were used: Automated exposure control, adjustment of the mA and/or kV according to the pat ient size, and/or iterative reconstruction. Unless otherwise specified, incidental findings do not require dedicated imaging follow-up. [id number]. IV CONTRAST: Not administered. COMPARISON: 08/09/2024 FINDINGS: The lack of intravenous contrast limits the sensitivity of this exam for evaluation of solid visceral organs, vascular structures, and retroperitoneum. LOWER CHEST: No acute process identified.No significant pericardial effusion. Moderate circumferentia l thickening of the distal esophagus which could reflect esophagitis. Endoscopy could better evaluate. UPPER GI: No significant abnormality. LIVER: No significant focal abnormality. GALLBLADDER/BILE DUCTS: Cholecystectomy. No significant biliary ductal dilatation.? PANCREAS: No mass, ductal dilation, or yamileth-pancreatic fluid. SPLEEN: Unremarkable. ADRENALS: No adrenal masses. KIDNEYS AND URETERS: No hydronephrosis.Within the limitations of a noncontrast CT, no suspicious colby l lesions. ABDOMINAL AORTA AND OTHER VESSELS: Normal caliber aorta and IVC. PERITONEUM: No abnormal free fluid. No free air. LYMPH NODES: No pathologic lymphadenopathy. ABDOMINAL WALL: Small fat containing umbilical hernia. SMALL BOWEL/COLON: Small bowel has normal course and caliber. No colonic wall thickening or pericolon ic inflammatory changes.The cecum is now positioned in the expected location of the right lower quadrant. Previously seen stool burden has improved. The appendix is normal. URINARY BLADDER: Underdistended but grossly unremarkable. REPRODUCTIVE ORGANS: No pathologic process. MUSCULOSKELETAL: No acute or suspicious osseous abnormality. ADDITIONAL FINDINGS: None. IMPRESSION: The cecum is now present in the more typical location of the right lower quadrant. The patient likely has some mobility at the ileocolic mesentery which is not uncommon and probably of little significance. Formed stool in the cecum is no longer present.
[2024-08-11 12:51] VITALS: TEMP 97.8
--- NOTE | 2024-08-11 15:22 | P.PN ---
Subjective Date of Service: 08/11/24 Chief Complaint: intractable N/V and abdominal pain Subjective: Improving (CT abdomen/pelvis -> stool and possible bascule gone after colon prep overnight. No lower abdominal pain. Still with upper abdominal pain with significant gastritis noted on EGD yesterday with marked decrease compliance.) Review of Systems 10-point ROS is otherwise unremarkable General: Weakness, Malaise Gastrointestinal: Nausea, Abdominal Pain Physical Examination - Vital Signs Temperature: 97.8 F Blood Pressure: 122/66 Pulse: 77 Respirations: 16 Pulse Ox (%): 98 - Physical Exam General: Alert, Oriented x3, Cooperative, Mild distress HEENT: Atraumatic, Normocephalic, PERRLA, EOMI Neck: Supple Respiratory: Normal air movement Cardiovascular: Normal pulses Gastrointestinal: No rebound, Tenderness, Guarding Neurological: Normal speech, Normal strength at 5/5 x4 extr Assessment And Plan - Current Problems (Diagnosis) (1) Epigastric abdominal pain Current Visit: Yes Status: Acute (2) RUQ abdominal pain Current Visit: Yes Status: Acute (3) LUQ abdominal pain Current Visit: Yes Status: Acute (4) Nausea & vomiting Current Visit: Yes Status: Acute (5) Abnormal CT of the abdomen Current Visit: Yes Status: Acute (6) Constipation Current Visit: Yes Status: Acute - Plan REC: 1) PPI bid 2) consider gastric emptying study 3) CLs to FLs to GI soft
--- NOTE | 2024-08-11 16:06 | P.DS ---
Admission Date: 08/09/24 Discharge Date: 08/11/24 Disposition: ROUTINE DISCHARGE Discharge Condition: FAIR Reason for Admission: intractable N/V and abdominal pain Brief History of Present Illness: Diagnosis Abdominal pain associated with intractable nausea and vomiting Reflux Esophagus LA class 3 esophagitis in distal esophagus Gastric retention Significant stool burden in cecum- resolved History of hiatal hernia Severe GERD HPI 08/09/24 Missy Leon is a 39 year old female with PMhx hiatal hernia who presented to the ED with intractable N/V and severe abdominal pain that began last night. She report having these episode often but they usually resolve. She follows with Dr. Diez and has had an upper GI scope with no relief offered. She reports having severe GERD and at times diarrhea. Laboratory evaluation unremarkable. CT abdomen pelvis report "Significant stool distention particularly within the cecum which is positioned atypically along the midline lower abdomen, cecal bascule is a possibility." Nancy will be admitted to hospital service for further evaluation and treatment of intractable nausea vomiting Hospital Course: Patient was admitted and treated for the following diagnosis: Abdominal pain associated with intractable nausea and vomiting Reflux Esophagus LA class 3 esophagitis in distal esophagus Gastric retention Significant stool burden in cecum- resolved History of hiatal hernia Severe GERD -CT abdomen pelvis report "Significant stool distention particularly within the cecum which is positioned atypically along the midline lower abdomen, cecal bascule is a possibility." -Repeat CT abd/pelvis reporting "Cecum now present in the more typical location of the right lower quadrant. The patient likely has some mobility at the ileocolic mesentery which is not uncommon and probably of little significance. Formed stool in the cecum is no longer present." -Tolerated and improved with carafate, Protonix, mag citrate, stool softener, and bowel prep -Zofran -tolerated Flagyl/ciprofloxacin, will stop on discharge for -Pain controlled -Dr. Chandler and Dr. Diez consulted, EGD 08/10/24 finding gastritis -Advance diet slowly as tolerated On 08/11/24, Missy was seen on morning rounds and deemed hemodynamically stable. Dr. Diez and Dr. Chandler has evaluated and cleared for discharge and follow up outpatient. [place]og, protonix, and carafate prescribed. Physical Exam General: AAO x3, NAD Neck: trachea midline, Supple Respiratory: Clear BBS, Normal air movement, on RA Cardiovascular: Regular rate and rhythm, normal S1 S2 present Capillary refill: <2 Seconds Gastrointestinal: Hypoactive, mild tenderness (improved), soft on palpation Musculoskeletal: No clubbing Integumentary: No rashes Neurological: Normal speech, Normal tone Vital Signs/Physical Exam: Temp Pulse Resp BP Pulse Ox 97.8 F 77 16 122/66 98 08/11/24 15:48 08/11/24 15:48 08/11/24 15:48 08/11/24 15:48 08/11/24 15:48 Laboratory Data at Discharge: WBC 7.00 thou/uL (4.3-10.9) 08/11/24 06:43 Hgb 11.7 g/dL (12.0-15.0) L 08/11/24 06:43 Hct 34.4 % (36.0-45.0) L 08/11/24 06:43 Plt Count 265 thou/uL (152-406) 08/11/24 06:43 Sodium 136 mEq/L (136-145) 08/11/24 06:43 Potassium 3.8 mEq/L (3.5-5.1) 08/11/24 06:43 BUN 5 mg/dL (7-18) L 08/11/24 06:43 Creatinine 0.98 mg/dL (0.55-1.02) 08/11/24 06:43 Glucose 82 mg/dL (74-106) 08/11/24 06:43 Phosphorus 2.5 mg/dL (2.5-4.9) 08/11/24 06:43 Magnesium 2.4 mg/dL (1.6-2.4) 08/11/24 06:43 Total Bilirubin 0.3 mg/dL (0.2-1.0) 08/09/24 09:12 AST < 10 U/L (15-37) L 08/09/24 09:12 ALT 18 U/L (13-56) 08/09/24 09:12 Alkaline Phosphatase 80 U/L (45-117) 08/09/24 09:12 Lipase 25 U/L (13-75) 08/09/24 09:12 Home Medications: Trazodone [Desyrel*] 1 tab PO BEDTIME 08/10/24 buPROPion HCL [Bupropion Xl] 1 tab PO BEDTIME 08/10/24 Hydrocodone 7.5/APAP 325 [[place] 7.5/325 mg] 1 tab PO Q6H PRN #15 tab 08/11/24 Pantoprazole [Protonix Tab] 40 mg PO BID 30 Days #60 tab 08/11/24 Sucralfate [Carafate] 1 gm PO ACHS 14 Days #56 tab 08/11/24 New Medications: Sucralfate [Carafate] 1 gm PO ACHS 14 Days #56 tab Hydrocodone 7.5/APAP 325 [[place] 7.5/325 mg] 1 tab PO Q6H PRN #15 tab PRN Reason: Pain Pantoprazole [Protonix Tab] 40 mg PO BID 30 Days #60 tab Physician Discharge Instructions: 1. Please call and schedule a follow-up appointment with your PCP in 3-5 days - Please follow-up with your PCP for medication refills/adjustments 2. Please call and schedule a follow-up appointment with Dr. Chandler in one week 3. Please call and schedule a follow-up appointment with Dr. Diez in one week 4. Continue clear liquid diet for 5 days, advance to full liquid diet for 5 days, if tolerated then advance to soft GI 5. activity restrictions ambulate as able 6. Return to the ED if symptoms worsen New medications Protonix 40 mg twice daily Carafate 1 g tablet with meals and bedtime x 14 days Followup: Hugo Chandler MD [ACTIVE - CAN ADMIT] - 1 Week NONE,NONE [Primary Care Provider] - Tez Diez MD [ASSOCIATE-ACTIVE - CAN ADMIT] - 1 Week
[2024-08-11 16:30] VITALS: BP 103/56
--- NOTE | 2024-08-11 20:31 | CON ---
Date of Consultation: 08/10/2024 Reason For Consultation: Hematemesis, midepigastric right upper quadrant and left upper quadrant annia n, gastroesophageal reflux disease and possible bascule on CT scan. History Of Present Illness: Patient presented to hospital with midepigastric right upper quadrant an d left upper quadrant pain maximum 9/10, now 3/10 on pain medicines with associated nausea, vomiting, also history of reflux disease. CT scan revealed possible cecal bascule like a cecal volvulus with increased stool in the cecum, also a stool in the colon noted. Fatty liver. Past Medical History: Significant for gastroesophageal reflux disease, generalized anxiety disorder, depression, and tubal ligation. Medications: At home . Allergies: TO PROMETHAZINE AND ZITHROMAX. Social History: , 4 kids. She vapes. No alcohol. Family History: Father alive with hiatal hernia. Mother alive with diverticulitis, depression, suic idal ideation in January, anxiety disorder as well. Physical Examination: Vital Signs: Patient is 5 foot, 180 pounds. BMI of 34 kg/m2 with temperature of 98.1 degrees Fahrenh eit, pulse 77, respirations 18, blood pressure 100/60, O2 saturation 100%. General: This is a well-nourished, well-developed female, in no acute distress. HEENT: Normocephalic, atraumatic. Anicteric. Pupils equal, round, and reactive to light. Extraocu lar movements intact. Oropharynx is clear. Neck: Supple. Respirations: Clear to auscultation bilaterally. Cardiac: Regular rate and rhythm. Gastrointestinal: Positive bowel sounds. Soft, nondistended. Slightly obese. Pain in the midepiga stric right upper quadrant and left upper quadrant. Minimal tenderness in the right lower quadrant. No peritoneal or Wang sign and some mild guarding. No hepatosplenomegaly. Extremities: With no clubbing, cyanosis, or edema. 2+ pulses. Neuro: Alert and oriented x3. Grossly nonfocal. 5/5 motor, sensation to light touch. Laboratory Data: The patient has a white count of 6.7 down from 9.5 yesterday, hemoglobin 11.4, adrien tocrit 33.2, MCV of 85, platelet count 227, poly 47%, lymphocytes 40%, monocytes 10%, and eosinophils 3%. Sodium 140, potassium 3.7, chloride 111, bicarb 25, BUN of 4, creatinine of 0.9, glucose 74, ca lcium 7.5, phosphorus 2.8, magnesium 2.3, total bilirubin 0.2, AST less than 10, ALT of 18, alkaline phosphatase 80, total protein 7.0, albumin 3.3, lipase 25. UA was negative except for slight ___, otherwise negative. CT abdomen and pelvis revealed a possible cecal bascule with increased stoo l in the cecum and right colon and mild fatty liver. Impression: 1. Hematemesis. 2. Midepigastric greater than right upper and left upper quadrant pain . Continue with annia n medicines with nausea, vomiting. 3. Gastroesophageal reflux disease. 4. 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 5. History of gastroesophageal reflux disease, depression, generalized anxiety disorder, , t ubal ligation, and laparoscopic cholecystectomy. Recommendation: 1. Proceed with EGD. 2. If patient repeat CT in the morning. 3. Continue IV fluids. Outpatient liver workup for this mild fatty liver . AKHIL/OUSMANE Voice ID: [id number] Report ID: [id number]
== END 2024-08-11 20:00 | disposition home or self-care (01) | DRG 241 ==
LOC: ER 08:34 → ERHOLD 12:46 → 4TH 08-10 11:06
PROVIDERS: ADMIT Internal Medicine; ATTEND Internal Medicine
PROC: 0DB68ZX Excision of Stomach, Via Natural or Artificial Opening Endoscopic, Diagnostic (ICD-10-PCS; principal; 2024-08-09)
DX: K29.51 Unspecified chronic gastritis with bleeding (principal); K21.00 Gastro-esophageal reflux disease with esophagitis, without bleeding; K59.00 Constipation, unspecified; K59.39 Other megacolon; K76.0 Fatty (change of) liver, not elsewhere classified; K44.9 Diaphragmatic hernia without obstruction or gangrene; E66.9 Obesity, unspecified; Z88.1 Allergy status to other antibiotic agents; Z88.8 Allergy status to other drugs, medicaments and biological substances; Z68.34 Body mass index [BMI] 34.0-34.9, adult; Z90.49 Acquired absence of other specified parts of digestive tract
CPT/HCPCS: 36415; 74176; 74177; 80048; 80053; 81001; 81025; 83690; 83735; 84100; 85025; 88305; 88312; 96361; 96374; 96375; 99285; J0744; J1171; J1650; J2270; J2405; J2470; J2704; J2765; J7030; Q9967

== ENCOUNTER 2024-08-14 20:13 | Emergency (ER) | payer OTHER ==
--- OUTSIDE RECORDS SUMMARY | 2024-08-14 20:18 | XMS REPORT | Continuity of Care Document ---
Author Name Unknown Address [address] [facility]. [address] [place] [address] [facility] [address] [facility] [address] [place] [address] Care Team Providers Care [facility] Name Role Phone PCP, PATIENT DOES NOT HAVE A Primary Care Physic huma Unavailable PAIGE THURSTON Attending Clinician Unavailable PAIGE THURSTON Attending Clinician Unavailable Paige Thurston MD Attending Clinician [phone] Nurse, [facility] Attending Clinician Unavailable Kunal Finley MD Attending Clinician [phone] KUNAL FINLEY Attending Clinician Unavailab KUNAL Christine Attending Clinician Unavailab Jaymie Gutierrez PA-C Attending Clinician [phone] Unknown, Attending Attending Clinician Unavailab JAYMIE Gutierrez Attending Clinician Unavailable BREE GILLIAM Attending Clinician Unavailable Bree Gilliam PA-C Attending Clinician [phone] RIANNA EDWARDS Attending Clinician Unavailable Rianna Nunes Attending Clinician [phone] Jordon Lopez MD Attending Clinician [phone] JORDON LOPEZ Attending Clinician Unavailable CHARMAINE DE LA VEGA Attending Clinician Unavailab CHARMAINE Ponce Attending Clinician Unavailab Charmaine Ponce DO Attending Clinician [phone] LAWSON, FAKEHA Attending Clinician Unavailable LASWON, FAKEHA Attending Clinician Unavailable Nurse, [facility] Attending Clinician Un available [employer]ING [employer]PECTOR, Ngozi Attending Clinician [phone] Provider, [facility] Attending Clinician Unavailable Andrew Clarke Attending Clinician [phone] ANDREW CHAND Attending Clinician Unavailable JUAN ORNELAS Attending Clinician Unavailable JUAN ORNELAS Attending Clinician Unavailable Juan Ornelas DO Attending Clinician [phone] CHELLE ALICEA Attending Clinician Unavailable Chelle Alicea NP Attending Clinician [phone] MIKE URENA Attending Clinician Unavailable Mike Urena DO Attending Clinician [phone] Doctor Unassigned, [place] Attending Clinician U navailable BREN LONG Attending Clinician Unavaila ble Ibikunle Bren CASTLE Attending Clinician [phone] Willie Otoole Attending Clinician [phone] Willie SIMMONS Attending Clinician Unavailable JUAN ORNELAS Admitting Clinician Unavailable CHELLE ALICEA Admitting Clinician Unavailable MIKE URENA Admitting Clinician Unavailable CHARMAINE DE LA VEGA Admitting Clinician Unavailab Willie Gallagher Admitting Clinician Unavailable Payers Payer Name Policy Type Policy Number Effective Date Expirati on Date Source [facility] [id number] 2024 00:00:00 [facility] [id number] 2024 00:00:00 [facility] [id number] 2022 00:00:00 Problems Condition Name Condition Details Condition Category Status Onset Date Resolution Date Last Treatment Date Treating Clinician Comments Source Abnormal maternal glucose tolerance, antepartum Abnormal maternal glucose tolerance, antepartum Disease Active 01-21 00:00: 00 Overview: Formattin g of this note might be different from the original. Passed early 3hr [facility] Current with history of spontaneou s during prior Current with history of spontaneou s during prior Disease Active 01-20 00:00: 00 [facility] Obesity in , antepartum Obesity in , antepartum Disease Active 01-20 00:00: 00 [facility] Supervisio n of high risk , antepartum Supervisio n of high risk , antepartum Disease Active 01-20 00:00: 00 [facility] Tobacco use affecting , antepartum Tobacco use affecting , antepartum Disease Active 01-20 00:00: 00 [facility] Genital herpes complicati ng in antepartum condition Genital herpes complicati ng in antepartum condition Disease Active 01-20 00:00: 00 Overview: Formattin g of this note might be different from the original. + HSV 2 [facility] Current with history of labor, unspecifie d trimester Current with history of labor, unspecifie d trimester Disease Active 01-20 00:00: 00 [facility] Family history of congenital anomalies Family history of congenital anomalies Disease Active 01-20 00:00: 00 [facility] Obesity (BMI 30-39.9) Obesity (BMI 30-39.9) Disease Resolve d 23 00:00: 00 2018-01-20 00:00:00 2018-01-20 14:58:42 [facility] Abdominal pain Abdominal pain Disease Resolve d -22 00:00: 00 2018-01-20 00:00:00 2018-01-20 14:58:39 [facility] contractio ns contractio ns Disease Resolve d 11-12 00:00: 00 2018-01-20 00:00:00 2018-01-20 14:58:35 [facility] Allergies, Adverse Reactions, Alerts Allergy Name Allergy Type Status Severity Reaction(s) Onset Date Inactive Date Treating Clinician Comments Source Prometha zine Hcl Propensi ty to adverse reaction s Active Unknown - See comments 11-11 00:00: 00 Convulsio ns [facility] Azithrom ycin Propensi ty to adverse reaction s Active Unknown - See comments 11-11 00:00: 00 Stomach ache [facility] PROMETHA ZINE HCL DRUG INGREDI Active High Unknown-Cmnt 11-11 00:00: 00 [facility] AZITHROM YCIN DRUG INGREDI Active Unknown-Cmnt 11-11 00:00: 00 [facility] Social History Social Habit Start Date Stop Date Quantity Comments Source History of tobacco use Cigarette Smoker [facility] Alcoholic beverage intake 2024-06-30 00:00:00 2024-06-30 00:00:00 Current non-drinker of alcohol (finding) [facility] Cigarettes smoked current (pack per day) - Reported 2024-02-24 00:00:00 2024-02-24 00:00:00 [facility] Cigarette pack-years 2024-02-24 00:00:00 2024-02-24 00:00:00 [facility] Tobacco use and exposure 2024-02-24 00:00:00 2024-02-24 00:00:00 Smokeless tobacco non-user [facility] Tobacco Comment 2024-02-24 00:00:00 2024-02-24 00:00:00 information provided [facility] Exposure to SARS-CoV-2 (event) 2022-07-15 00:00:00 2022-07-25 20:43:00 Not sure [facility] Alcohol intake 2022-06-12 00:00:00 2022-06-12 00:00:00 Current non-drinker of alcohol (finding) [facility] History of Social function 2019-01-12 00:00:00 2019-01-12 00:00:00 [facility] Sex assigned at 1985 00:00:00 1985 00:00:00 [facility] Smoking Status Start Date Stop Date Source Smokes tobacco daily 2024-02-24 00:00:00 [facility] Medications Ordered Medication Name Filled Medication Name Start Date Stop Date Current Medication? Ordering Clinician Indication Dosage Frequency Signature (SIG) Comments Components Source HYDROcodone -acetaminop hen 7.5-325 mg per tablet 1-20 00:00: 00 08-01 05:59 :00 Yes [id number] 1{tbl} Take 1 tablet by mouth every 6 (six) hours as needed for Pain for up to 7 days. Indication s: acute pain [facility] ciprofloxac in HCl (CIPRO) 500 mg tablet 2023-07 00:00: 00 07-08 05:59 :00 Yes [id number] 500mg Take 1 tablet by mouth every 12 (twelve) hours for 7 days. [facility] methylPREDN ISolone 4 mg tablets 2023-07 00:00: 00 Yes [id number] Take by mouth SEE-INSTRU CTIONS. follow package directions [facility] albuterol 90 mcg/actuati on inhaler 2023-07 00:00: 00 Yes [id number] 2{puff} Inhale 2 Puffs every 6 (six) hours as needed for Chest tightness or Bronchospa sm. [facility] amoxicillin 500 mg capsule 2023-07 00:00: 06-28 05:59 :00 Yes [id number] 500mg Take 1 capsule by mouth in the morning and 1 capsule in the evening. Do all this for 7 days. [facility] valACYclovi r 500 mg tablet 2023-07 11:02: 58 Yes 500mg Take 1 tablet by mouth in the morning. [facility] bromphenira mine-pseudo ephedrine-D M (BROMFED DM) 2-30-10 mg/5 mL syrup 2023-07 00:00: 00 Yes [id number] 10mL Take 10 mL by mouth 4 (four) times daily as needed for Congestion /Allergies , Cold symptoms or Cough. [facility] ondansetron 4 mg disintegrat ing tablet 2023-07 00:00: 00 Yes [id number] 4mg Take 1 tablet by mouth every 12 (twelve) hours as needed for Nausea and Vomiting (N/V). [facility] oseltamivir (TAMIFLU) 75 mg capsule 2023-07 00:00: 00 05-22 05:59 :00 Yes [id number] 75mg Take 1 capsule by mouth in the morning and 1 capsule in the evening. Do all this for 5 days. [facility] traZODone 100 mg tablet 2023-07 00:00: 00 Yes 100mg Take 1 tablet by mouth at bedtime. [facility] ketorolac (TORADOL) injection 30 mg 2023-07 00:45: 00 04-05 00:23 :00 No 30mg 30 mg, Slow IV Push, ONCE, 1 dose, On Wed04/04/24 at 1945, Routine [facility] NaCl 0.9% (NS) bolus infusion 1,000 mL 2023-07 00:45: 00 04-05 01:18 :00 No 1000mL at 999 mL/hr, 1,000 mL, IV Infusion, ONCE, 1 dose, On Wed04/04/24 at 1945, SIMÓN [facility] dexamethaso ne sod phos PF injection 10 mg 2023-07 00:00: 00 04-05 00:23 :00 No 10mg 10 mg, Slow IV Push, ONCE, 1 dose, On Wed04/04/24 at 1900, 1 mL [facility] diphenhydrA MINE (BENADRYL) injection 25 mg 2023-07 00:00: 00 04-05 00:24 :00 No 25mg 25 mg, Slow IV Push, ONCE, 1 dose, On Wed04/04/24 at 1900, STAT [facility] metoclopram vicky HCl (REGLAN) injection 10 mg 2023-07 00:00: 00 04-05 00:24 :00 No 10mg 10 mg, Slow IV Push, ONCE, 1 dose, On Wed04/04/24 at 1900, SIMÓN [facility] Nitrofurant oin&Nit. Macrocryst 100 mg capsule 02-23 00:00: 00 03-03 04:59 :00 No [id number] 100mg Take 1 capsule by mouth in the morning and 1 capsule in the evening. Do all this for 7 days. [facility] ketorolac (TORADOL) injection 15 mg 02-16 01:30: 00 02-16 00:27 :00 No 15mg 15 mg, Slow IV Push, ONCE, 1 dose, On Wed02/16/24 at 2030, Routine [facility] NaCl 0.9% (NS) bolus infusion 1,000 mL 02-16 01:15: 00 02-16 02:34 :00 No 1000mL at 999 mL/hr, 1,000 mL, IV Infusion, ONCE, 1 dose, On Wed02/16/24 at 2015, SIMÓN [facility] iopamidol (ISOVUE 370-500 mL) injection 80 mL 02-16 01:00: 00 02-16 01:15 :00 No [id number] 80mL 80 mL, Intravenou s, ONCE, 1 dose, On Wed02/16/24 at 2015, Routine [facility] pantoprazol e (PROTONIX) injection 40 mg 02-16 00:30: 00 02-16 00:28 :00 No 40mg 40 mg, Slow IV Push, ONCE, 1 dose, On Wed02/16/24 at 1930 [facility] ondansetron (ZOFRAN (PF)) injection 4 mg 02-16 00:30: 00 02-16 00:27 :00 No 4mg 4 mg, Slow IV Push, ONCE, 1 dose, On Wed02/16/24 at 1930, [facility] dicyclomine 20 mg tablet 02-15 00:00: 00 Yes [id number] 20mg Take 1 tablet by mouth 4 (four) times daily. [facility] ondansetron 4 mg tablet 02-15 00:00: 00 05-16 00:00 :00 No [id number] 4mg Take 1 tablet by mouth every 8 (eight) hours as needed for Nausea and Vomiting (N/V) for up to 20 doses. [facility] pantoprazol e (PROTONIX) 40 mg EC tablet 02-15 00:00: 00 03-18 04:59 :00 No [id number] 40mg Take 1 tablet by mouth in the morning for 30 doses. [facility] omeprazole 40 mg capsule 02-03 00:00: 00 Yes TAKE 1 CAPSULE BY MOUTH IN THE MORNING [facility] NaCl 0.9% (NS) IV infusion 1,000 mL 02-08 03:30: 00 Yes 1000mL at 1,000 mL/hr, Intravenou s, CONTINUOUS , Starting on Wed02/07/23 at 2230, Until Discontinu ed, SIMÓN [facility] iopamidol (ISOVUE 370-500 mL) injection 85 mL 02-08 02:00: 00 02-08 02:00 :00 No [id number] 85mL 85 mL, Intravenou s, ONCE, 1 dose, On Wed02/07/23 at 2100, Routine [facility] diphenoxyla te-atropine (LOMOTIL) 2.5-0.025 mg tablet 1 tablet 02-08 01:30: 00 02-08 01:24 :00 No 1{tbl} 1 tablet, Oral, ONCE NOW, 1 dose, On Wed02/07/23 at 2030, Routine [facility] ketorolac (TORADOL) injection 30 mg 02-07 23:15: 00 02-08 00:08 :00 No 30mg 30 mg, Slow IV Push, ONCE, 1 dose, On Wed02/07/23 at 1815, Routine [facility] dicyclomine (BENTYL) injection 20 mg 02-07 23:00: 00 02-08 00:08 :00 No 20mg 20 mg, Intramuscu lar, ONCE NOW, 1 dose, On Wed02/07/23 at 1800, Routine [facility] NaCl 0.9% (NS) bolus infusion 1,000 mL 02-07 23:00: 00 02-08 02:40 :00 No 1000mL at 999 mL/hr, 1,000 mL, IV Infusion, ONCE, 1 dose, On Wed02/07/23 at 1800, SIMÓN [facility] ondansetron (ZOFRAN (PF)) injection 4 mg 02-07 22:15: 00 02-08 00:08 :00 No 4mg 4 mg, Slow IV Push, ONCE, 1 dose, On Wed02/07/23 at 1715, SIMÓN [facility] diphenoxyla te-atropine 2.5-0.025 mg tablet 02-07 00:00: 00 Yes [id number] 1{tbl} Take 1 tablet by mouth every 6 (six) hours as needed (diarrhra) . [facility] iopamidol (ISOVUE 370-500 mL) injection 100 mL 02-02 23:30: 00 02-02 23:30 :00 No [id number] 100mL 100 mL, Intravenou s, ONCE, 1 dose, On Wed02/02/23 at 1830, Routine [facility] ondansetron (ZOFRAN (PF)) injection 4 mg 02-02 22:30: 00 02-02 21:48 :00 No 4mg 4 mg, Slow IV Push, ONCE, 1 dose, On Wed02/02/23 at 1730, Routine [facility] morpHINE (4 mg/mL) injection 4 mg 02-02 22:30: 00 02-02 21:48 :00 No 4mg 4 mg, Slow IV Push, ONCE, 1 dose, On Wed02/02/23 at 1730, STAT [facility] sucralfate 1 gram tablet 02-02 00:00: 00 Yes [id number] 1g Take 1 tablet by mouth before meals and at bedtime. [facility] ondansetron 4 mg disintegrat ing tablet 02-02 00:00: 00 05-16 00:00 :00 No [id number] 4mg Take 1 tablet by mouth every 8 (eight) hours as needed for Nausea and Vomiting (N/V). [facility] dicyclomine (BENTYL) 10 mg capsule 02-02 00:00: 02-15 00:00 :00 No [id number] 10mg Take 1 capsule by mouth every 8 (eight) hours as needed for Abdominal pain. [facility] omeprazole 20 mg capsule 02-02 00:00: 00 03-05 04:59 :00 No [id number] 20mg Take 1 capsule by mouth in the morning for 30 days. [facility] maalox:diph enhydrAMINE :lidocaine 2 % viscous 1:1:1 (FIRST-MOUT HWASH BLM) oral suspension 15 mL 07-26 04:00: 00 07-26 03:59 :00 No 15mL 15 mL, Oral, ONCE, 1 dose, On 07/25/22 at 2200, Routine [facility] ondansetron (ZOFRAN (PF)) injection 4 mg 07-26 03:15: 00 07-26 03:03 :00 No 4mg 4 mg, Slow IV Push, ONCE, 1 dose, On 07/25/22 at 2115, SIMÓN [facility] iopamidol (ISOVUE 370-500 mL) injection 100 mL 07-26 02:55: 00 07-26 03:15 :00 No [id number] 100mL 100 mL, Intravenou s, ONCE, 1 dose, On 07/25/22 at 2115, Routine [facility] NaCl 0.9% (NS) injection 5 mL 07-26 02:42: 41 Yes 5mL 5 mL, Slow IV Push, PRN - SEE INSTRUCTIO NS, Starting on 07/25/22 at 204, Until Discontinu ed, 10 mL [facility] NaCl 0.9% (NS) bolus infusion 1,000 mL 2021-07 01:30: 00 06-26 01:38 :00 No 1000mL at 999 mL/hr, 1,000 mL, IV Infusion, ONCE, 1 dose, On Kathy 06/25/22 at 1930, SIMÓN [facility] pantoprazol e (PROTONIX) injection 40 mg 2021-07 01:00: 00 06-26 00:54 :00 No 40mg 40 mg, Slow IV Push, ONCE, 1 dose, On Kathy 06/25/22 at 1900 [facility] diphenhydrA MINE (BENADRYL) injection 25 mg 2021-07 00:45: 00 06-26 00:46 :00 No 25mg 25 mg, Slow IV Push, ONCE, 1 dose, On Wed06/25/22 at 1845, STAT [facility] dexamethaso ne sod phos PF injection 10 mg 2021-07 00:45: 00 06-26 00:38 :00 No 10mg 10 mg, Slow IV Push, ONCE, 1 dose, On Kathy 06/25/22 at 1845, 1 mL [facility] maalox:diph enhydrAMINE :lidocaine 2 % viscous 1:1:1 (FIRST-MOUT HWASH BLM) oral suspension 15 mL 2021-07 00:45: 00 06-26 00:50 :00 No 15mL 15 mL, Oral, ONCE, 1 dose, On Wed06/25/22 at 1845, Routine [facility] LORazepam (ATIVAN) injection 1 mg 2021-07 00:45: 00 06-26 00:47 :00 No 1mg 1 mg, Slow IV Push, ONCE, 1 dose, On Wed06/25/22 at 1845, STAT [facility] albuterol (PROVENTIL) 2.5 mg /3 mL (0.083 %) nebulizer solution 2.5 mg 2021-07 00:45: 00 06-26 00:49 :00 No 2.5mg 2.5 mg, Inhalation , ONCE, 1 dose, On Wed06/25/22 at 1845, STAT [facility] famotidine (PEPCID (PF)) injection 20 mg 2021-07 00:45: 00 06-26 00:46 :00 No 20mg 20 mg, Slow IV Push, ONCE, 1 dose, On Wed06/25/22 at 1845, SIMÓN [facility] albuterol 90 mcg/actuati on inhaler 2021-07 00:00: 00 Yes [id number] 2{puff} Inhale 2 Puffs every 4 (four) hours as needed for Wheezing or Shortness of Breath. [facility] pantoprazol e 40 mg EC tablet 2021-07 00:00: 00 07-26 05:59 :00 No [id number] 40mg Take 1 tablet by mouth in the morning for 30 days. [facility] predniSONE 20 mg tablet 2021-07 00:00: 00 07-01 05:59 :00 No [id number] 40mg Take 2 tablets by mouth in the morning for 5 days. [facility] cetirizine 10 mg tablet 2021-07 00:00: 00 07-01 05:59 :00 No [id number] 10mg Take 1 tablet by mouth in the morning for 5 days. [facility] maalox:diph enhydrAMINE :lidocaine 2 % viscous 1:1:1 (FIRST-MOUT HWASH BLM) oral suspension 15 mL 2021-07 05:00: 00 06-13 04:06 :00 No 15mL 15 mL, Oral (Swish & Swallow), ONCE, 1 dose, On Wed06/12/22 at 2300, Routine [facility] famotidine (PEPCID (PF)) injection 20 mg 2021-07 04:00: 00 06-13 04:06 :00 No 20mg 20 mg, Slow IV Push, ONCE, 1 dose, On Wed06/12/22 at 2200, SIMÓN [facility] ketorolac (TORADOL) injection 15 mg 2021-07 02:15: 00 06-13 01:21 :00 No 15mg 15 mg, Slow IV Push, ONCE, 1 dose, On Wed06/12/22 at 2015, SIMÓN [facility] ondansetron (ZOFRAN (PF)) injection 4 mg 2021-07 01:45: 00 06-13 00:44 :00 No 4mg 4 mg, Slow IV Push, ONCE, 1 dose, On Wed06/12/22 at 1945, SIMÓN [facility] iopamidol (ISOVUE 370-500 mL) injection 74 mL 2021-07 01:19: 00 06-13 01:30 :00 No [id number] 74mL 74 mL, Intravenou s, ONCE, 1 dose, On Wed06/12/22 at 1930, Routine [facility] ondansetron (ZOFRAN (PF)) injection 4 mg 2021-07 01:00: 00 06-13 00:01 :00 No 4mg 4 mg, Slow IV Push, ONCE, 1 dose, On Wed06/12/22 at 1900, SIMÓN [facility] NaCl 0.9% (NS) bolus infusion 1,000 mL 2021-07 01:00: 00 06-13 04:05 :00 No 1000mL at 999 mL/hr, 1,000 mL, IV Infusion, ONCE, 1 dose, On Wed06/12/22 at 1900, STAT [facility] famotidine (PEPCID) 40 mg tablet 2021-07 00:00: 00 Yes [id number] 40mg Take 1 tablet by mouth in the morning. [facility] ondansetron 4 mg disintegrat ing tablet 2021-07 00:00: 00 02-02 00:00 :00 No [id number] 4mg Take 1 tablet by mouth every 8 (eight) hours as needed for Nausea and Vomiting (N/V). [facility] Immunizations Ordered Immunization Name Filled Immunization Name Date Status Comments Source TDAP 2024-07-24 00:00:00 Completed [facility] Flu Injectable MDCK Pres-Free (FLUCELVAX) 2024-07-20 00:00:00 Completed [facility] Influenza Virus Vaccine Quad IM 3+ YRS 2016-09-25 00:00:00 Completed [facility] Influenza Virus Vaccine Quad IM 3+ YRS 2016-09-25 00:00:00 Completed [facility] Influenza Virus Vaccine Quad IM 3+ YRS 2016-09-25 00:00:00 Completed [facility] Influenza Virus Vaccine Quad IM 3+ YRS 2016-09-25 00:00:00 Completed [facility] Influenza Virus Vaccine Quad IM 3+ YRS 2016-09-25 00:00:00 Completed [facility] Influenza Virus Vaccine Quad IM 3+ YRS 2016-09-25 00:00:00 Completed [facility] Influenza Virus Vaccine Quad IM 3+ YRS 2016-09-25 00:00:00 Completed [facility] Influenza Virus Vaccine Quad IM 3+ YRS 2016-09-25 00:00:00 Completed [facility] Influenza Virus Vaccine Quad IM 3+ YRS 2016-09-25 00:00:00 Completed [facility] Influenza Virus Vaccine Quad IM 3+ YRS 2016-09-25 00:00:00 Completed [facility] Influenza Virus Vaccine Quad IM 3+ YRS Unknown Completed [facility] Influenza Virus Vaccine Quad IM 3+ YRS Unknown Completed [facility] Influenza Virus Vaccine Quad IM 3+ YRS Unknown Completed [facility] Influenza Virus Vaccine Quad IM 3+ YRS Unknown Completed [facility] Vital Signs Vital Name Observation Time Observation Value Comments S ource Systolic blood pressure 2024-07-25 02:33:02 132 mm[Hg] [facility] Diastolic blood pressure 2024-07-25 02:33:02 75 mm[Hg] [facility] Heart rate 2024-07-25 02:33:02 92 /min [facility] Body temperature 2024-07-25 02:33:02 36.83 Pratibha [facility] Respiratory rate 2024-07-25 02:33:02 18 /min [facility] Body height 2024-07-25 02:08:00 154.9 cm [facility] Body weight 2024-07-25 02:08:00 81.647 kg [facility] BMI 2024-07-25 02:08:00 34.01 kg/m2 [facility] Oxygen saturation in Arterial blood by Pulse oximetry 2024-07-25 02:08:00 100 /min [facility] Body temperature 2024-07-20 15:40:00 36.67 Pratibha [facility] Systolic blood pressure 2024-06-30 20:41:00 109 mm[Hg] [facility] Diastolic blood pressure 2024-06-30 20:41:00 77 mm[Hg] [facility] Heart rate 2024-06-30 20:41:00 95 /min [facility] Body temperature 2024-06-30 20:41:00 37 Pratibha [facility] Respiratory rate 2024-06-30 20:41:00 12 /min [facility] Body height 2024-06-30 20:41:00 154.9 cm [facility] Body weight 2024-06-30 20:41:00 81.375 kg [facility] BMI 2024-06-30 20:41:00 33.90 kg/m2 [facility] Oxygen saturation in Arterial blood by Pulse oximetry 2024-06-30 20:41:00 98 /min [facility] Systolic blood pressure 2024-06-21 00:01:00 123 mm[Hg] [facility] Diastolic blood pressure 2024-06-21 00:01:00 76 mm[Hg] [facility] Heart rate 2024-06-21 00:01:00 99 /min [facility] Body temperature 2024-06-21 00:01:00 36.89 Pratibha [facility] Respiratory rate 2024-06-21 00:01:00 20 /min [facility] Body weight 2024-06-21 00:01:00 81.557 kg [facility] BMI 2024-06-21 00:01:00 33.97 kg/m2 [facility] Oxygen saturation in Arterial blood by Pulse oximetry 2024-06-21 00:01:00 98 /min [facility] Systolic blood pressure 2024-06-10 17:03:00 109 mm[Hg] [facility] Diastolic blood pressure 2024-06-10 17:03:00 76 mm[Hg] [facility] Heart rate 2024-06-10 17:03:00 111 /min [facility] Body temperature 2024-06-10 17:03:00 37.11 Pratibha [facility] Respiratory rate 2024-06-10 17:03:00 20 /min [facility] Body weight 2024-06-10 17:03:00 82.01 kg [facility] BMI 2024-06-10 17:03:00 34.16 kg/m2 [facility] Oxygen saturation in Arterial blood by Pulse oximetry 2024-06-10 17:03:00 98 /min [facility] Systolic blood pressure 2024-05-16 17:53:00 107 mm[Hg] [facility] Diastolic blood pressure 2024-05-16 17:53:00 64 mm[Hg] [facility] Heart rate 2024-05-16 17:53:00 96 /min [facility] Body temperature 2024-05-16 17:53:00 37.33 Pratibha [facility] Respiratory rate 2024-05-16 17:53:00 20 /min [facility] Body height 2024-05-16 17:53:00 154.9 cm [facility] Body weight 2024-05-16 17:53:00 82.781 kg [facility] BMI 2024-05-16 17:53:00 34.48 kg/m2 [facility] Oxygen saturation in Arterial blood by Pulse oximetry 2024-05-16 17:53:00 98 /min [facility] Systolic blood pressure 2024-04-05 01:00:00 106 mm[Hg] [facility] Diastolic blood pressure 2024-04-05 01:00:00 68 mm[Hg] [facility] Heart rate 2024-04-05 01:00:00 80 /min [facility] Body temperature 2024-04-05 01:00:00 36.83 Pratibha [facility] Respiratory rate 2024-04-05 01:00:00 17 /min [facility] Oxygen saturation in Arterial blood by Pulse oximetry 2024-04-05 01:00:00 99 /min [facility] Body height 2024-04-04 23:44:00 154.9 cm [facility] Body weight 2024-04-04 23:44:00 82.555 kg [facility] BMI 2024-04-04 23:44:00 34.39 kg/m2 [facility] Systolic blood pressure 2024-04-04 15:04:00 111 mm[Hg] [facility] Diastolic blood pressure 2024-04-04 15:04:00 78 mm[Hg] [facility] Heart rate 2024-04-04 15:04:00 85 /min [facility] Body temperature 2024-04-04 15:04:00 36.89 Pratibha [facility] Respiratory rate 2024-04-04 15:04:00 18 /min [facility] Body height 2024-04-04 15:04:00 154.9 cm [facility] Body weight 2024-04-04 15:04:00 82.753 kg [facility] BMI 2024-04-04 15:04:00 34.47 kg/m2 [facility] Oxygen saturation in Arterial blood by Pulse oximetry 2024-04-04 15:04:00 100 /min [facility] Systolic blood pressure 2024-02-24 18:08:00 100 mm[Hg] [facility] Diastolic blood pressure 2024-02-24 18:08:00 53 mm[Hg] [facility] Heart rate 2024-02-24 18:08:00 83 /min [facility] Body temperature 2024-02-24 18:08:00 36.78 Pratibha [facility] Respiratory rate 2024-02-24 18:08:00 18 /min [facility] Body weight 2024-02-24 18:08:00 83.008 kg [facility] BMI 2024-02-24 18:08:00 34.58 kg/m2 [facility] Oxygen saturation in Arterial blood by Pulse oximetry 2024-02-24 18:08:00 96 /min [facility] Systolic blood pressure 2024-02-17 02:00:00 131 mm[Hg] [facility] Diastolic blood pressure 2024-02-17 02:00:00 92 mm[Hg] [facility] Heart rate 2024-02-17 02:00:00 81 /min [facility] Body temperature 2024-02-17 02:00:00 37.06 Pratibha [facility] Respiratory rate 2024-02-17 02:00:00 20 /min [facility] Oxygen saturation in Arterial blood by Pulse oximetry 2024-02-17 02:00:00 99 /min [facility] Body height 2024-02-17 00:16:00 154.9 cm [facility] Body weight 2024-02-17 00:16:00 83.144 kg [facility] BMI 2024-02-17 00:16:00 34.63 kg/m2 [facility] Systolic blood pressure 2023-02-08 04:00:00 125 mm[Hg] [facility] Diastolic blood pressure 2023-02-08 04:00:00 84 mm[Hg] [facility] Heart rate 2023-02-08 04:00:00 79 /min [facility] Body temperature 2023-02-08 04:00:00 37.28 Pratibha [facility] Oxygen saturation in Arterial blood by Pulse oximetry 2023-02-08 04:00:00 100 /min [facility] Respiratory rate 2023-02-07 21:53:00 18 /min [facility] Body weight 2023-02-07 21:53:00 81.647 kg [facility] BMI 2023-02-07 21:53:00 34.01 kg/m2 [facility] Systolic blood pressure 2023-02-02 23:31:00 115 mm[Hg] [facility] Diastolic blood pressure 2023-02-02 23:31:00 75 mm[Hg] [facility] Heart rate 2023-02-02 23:31:00 74 /min [facility] Respiratory rate 2023-02-02 23:31:00 22 /min [facility] Oxygen saturation in Arterial blood by Pulse oximetry 2023-02-02 23:31:00 100 /min [facility] Body temperature 2023-02-02 19:31:00 37.28 Pratibha [facility] Body height 2023-02-02 19:31:00 154.9 cm [facility] Body weight 2023-02-02 19:31:00 83.008 kg [facility] BMI 2023-02-02 19:31:00 34.58 kg/m2 [facility] Systolic blood pressure 2022-07-26 04:31:00 98 mm[Hg] [facility] Diastolic blood pressure 2022-07-26 04:31:00 70 mm[Hg] [facility] Heart rate 2022-07-26 04:31:00 79 /min [facility] Body temperature 2022-07-26 04:31:00 36.78 Pratibha [facility] Respiratory rate 2022-07-26 04:31:00 16 /min [facility] Oxygen saturation in Arterial blood by Pulse oximetry 2022-07-26 04:31:00 99 /min [facility] Body height 2022-07-26 02:38:00 157.5 cm [facility] Body weight 2022-07-26 02:38:00 81.647 kg [facility] BMI 2022-07-26 02:38:00 32.92 kg/m2 [facility] Systolic blood pressure 2022-06-26 01:00:00 116 mm[Hg] [facility] Diastolic blood pressure 2022-06-26 01:00:00 83 mm[Hg] [facility] Heart rate 2022-06-26 01:00:00 82 /min [facility] Respiratory rate 2022-06-26 01:00:00 18 /min [facility] Oxygen saturation in Arterial blood by Pulse oximetry 2022-06-26 01:00:00 97 /min [facility] Body temperature 2022-06-26 00:21:00 37.17 Pratibha [facility] Body height 2022-06-26 00:21:00 154.9 cm [facility] Body weight 2022-06-26 00:21:00 86.183 kg [facility] BMI 2022-06-26 00:21:00 35.90 kg/m2 [facility] Systolic blood pressure 2022-06-13 04:17:00 113 mm[Hg] [facility] Diastolic blood pressure 2022-06-13 04:17:00 79 mm[Hg] [facility] Heart rate 2022-06-13 04:17:00 75 /min [facility] Respiratory rate 2022-06-13 04:17:00 20 /min [facility] Oxygen saturation in Arterial blood by Pulse oximetry 2022-06-13 04:17:00 98 /min [facility] Body temperature 2022-06-12 23:51:00 37.72 Pratibha [facility] Body weight 2022-06-12 23:51:00 85.276 kg [facility] BMI 2022-06-12 23:51:00 35.52 kg/m2 [facility] Procedures Procedure Date / Time Performed Performing Clinician Source FLU VACC ([id number]), 6 MO-64 YRS, .5ML, IM, TIV (FLUCELVAX) 2024-07-20 15:30:24 Obi-Kunal Braxton [facility] POCT URINALYSIS 2024-06-30 20:45:00 Bree Gilliam [facility] POCT MOLECULAR FLU 2024-06-21 00:12:00 Bree Gilliam [facility] POCT MOLECULAR STREP 2024-06-21 00:08:00 Unknown, [facility] SARS-COV-2 ANTIGEN (BINAX NOW) 2024-06-10 17:24:00 Rianna Edwards [facility] POCT URINALYSIS 2024-06-10 17:08:00 [facility] POCT MOLECULAR FLU 2024-06-10 17:04:00 Unknown, Adelia [facility] POCT MOLECULAR STREP 2024-06-10 17:02:00 Unknown, Audelia bermudez [facility] POCT SARS-COV-2 ANTIGEN (BINAX NOW) 2024-05-16 18:06:00 Song, Jordon [facility] POCT MOLECULAR FLU 2024-05-16 17:55:00 Unknown, Attend ing [facility] POCT MOLECULAR STREP 2024-05-16 17:50:00 Unknown, Atte yovannying [facility] POCT SARS-COV-2 ANTIGEN (BINAX NOW) 2024-02-24 18:44:00 Andrew Chand [facility] POCT MOLECULAR STREP 2024-02-24 18:15:00 Mary Chand [facility] POCT URINALYSIS 2024-02-24 00:00:00 [facility] 2024-02-17 00:31:00 Juan Ornelas [facility] LIPASE 2024-02-17 00:26:00 Juan Ornelas [facility] COMP. METABOLIC PANEL ([id number]) 2024-02-17 00:26:00 Juan Ornelas [facility] CBC WITH DIFF 2024-02-17 00:26:00 Juan Ornelas [facility] URINALYSIS 2024-02-17 00:26:00 [facility] ABDOMEN PELVIS W CONTRAST 2023-02-08 01:10:12 Chelle Alicea [facility] LACTIC ACID WHOLE BLOOD 2023-02-08 00:52:00 Jasvir Alicea [facility] POCT TEST 2023-02-08 00:31:00 Chelle Alicea [facility] URINE DRUG (IMMUNOASSAY) - COMPREHENSIVE DRUG SCREEN W/O REFLEX 2023-02-08 00:23:00 Chelle Alicea [facility] URINALYSIS 2023-02-08 00:22:00 Chelle Alicea [facility] CLOSTRIDIUM DIFFICILE TOXIN 2023-02-08 00:15:00 Chelle Alicea [facility] CREATINE KINASE 2023-02-08 00:07:00 [facility] 2023-02-08 00:07:00 Drever, Chelle G [facility] MAGNESIUM 2023-02-08 00:07:00 Chelle Alicea [facility] COMP. METABOLIC PANEL ([id number]) 2023-02-08 00:07:00 hCelle Alicea [facility] CBC WITH DIFF 2023-02-08 00:07:[address] [facility] ASSIGNMENT OF BENEFITS 2023-02-07 23:23:01 Docto r Unassigned, [place] [facility] CONSENT/REFUSAL FOR DIAGNOSIS AND TREATMENT 2023-02-07 21:23:46 Doctor Unassigned, [place] [facility] POCT TEST 2023-02-02 21:51:00 Edilberto Urena [facility] COMP. METABOLIC PANEL ([id number]) 2023-02-02 21:43:00 Mike Urena [facility] CBC WITH DIFF 2023-02-02 21:43:00 Singer Mike [facility] URINALYSIS 2023-02-02 21:43:00 Mike Urena [facility] ASSIGNMENT OF BENEFITS 2023-02-02 20:51:35 Docto r Unassigned, [place] [facility] CONSENT/REFUSAL FOR DIAGNOSIS AND TREATMENT 2023-02-02 20:48:37 Doctor Unassigned, [place] [facility] URINALYSIS 2022-07-26 04:01:00 Charmaine De La Vega [facility] XR STROKE CHEST 1 VW 2022-07-26 03:20:52 Tony De La Vega [facility] CT STROKE HEAD WO CONTRAST 2022-07-26 03:02:54 Charmaine De La Vega [facility] CT STROKE ANGIOGRAM HEAD 2022-07-26 03:02:54 Charmaine De La Vega [facility] CT STROKE ANGIOGRAM NECK 2022-07-26 03:02:54 Charmaine De La Vega [facility] TROPONIN I 2022-07-26 02:47:00 Charmaine De La Vega [facility] BASIC METABOLIC PANEL (NA, K, CL, CO2, GLUCOSE, BUN, CREATININE, CA) 2022-07-26 02:47:00 Charmaine De La Vega [facility] CBC WITHOUT DIFF 2022-07-26 02:47:00 Charmaine De La Vega [facility] PROTHROMBIN TIME / INR 2022-07-26 02:47:00 Ida De La Vega [facility] ACTIVATED PARTIAL THRMPLAS SHEILA 2022-07-26 02:47:00 Charmaine De La Vega [facility] POCT GLUCOSE (AUTOMATED) 2022-07-26 02:44:00 Charmaine De La Vega [facility] NOTICE OF PRIVACY PRACTICES 2022-07-26 02:32:59 Doctor Unassigned, [place] [facility] CONSENT/REFUSAL FOR DIAGNOSIS AND TREATMENT 2022-07-26 02:32:38 Doctor Unassigned, [place] [facility] COMP. METABOLIC PANEL ([id number]) 2022-06-26 00:44:00 Bren Long [facility] CBC WITH DIFF 2022-06-26 00:44:00 Bren Long [facility] POCT TEST 2022-06-26 00:42:00 Maisha Long [facility] CONSENT/REFUSAL FOR DIAGNOSIS AND TREATMENT 2022-06-26 00:13:35 Doctor Unassigned, [place] [facility] CT ABDOMEN PELVIS W CONTRAST 2022-06-13 01:18:45 Willie Simmons [facility] POCT TEST 2022-06-13 00:45:00 Willie Simmons [facility] URINALYSIS 2022-06-13 00:39:00 Willie Simmons [facility] LIPASE 2022-06-13 00:00:00 Willie Simmons [facility] MAGNESIUM 2022-06-13 00:00:00 Willie Simmons [facility] COMP. METABOLIC PANEL ([id number]) 2022-06-13 00:00:00 Willie Simmons [facility] CBC WITH DIFF 2022-06-13 00:00:00 Willie Simmons [facility] CONSENT/REFUSAL FOR DIAGNOSIS AND TREATMENT 2022-06-12 23:33:19 Doctor Unassigned, [place] [facility] Encounters Start Date/Time End Date/Time Encounter Type Admission Type Attending Clinicians Care Facility Care Department Encounter ID Source 2024-07-24 20:10:00 2024-07-24 20:51:00 Emergency X PAIGE THURSTON PAIGE THURSTON [facility] ERT [id number] [facility] 2024-07-24 20:10:00 2024-07-24 20:51:00 Emergency Zaid Thurstonnell [facility] AT [facility] 1..840.114 350.1.13.10 4.2.7.2.686 [id number] [facility] 2024-07-20 09:40:00 2024-07-20 10:00:00 Nurse Visit Nurse, [facility] Ob-Fox Kunal Nurse, [facility] 1..840.114 350.1.13.10 4.2.7.2.686 [id number] [facility] 2024-07-20 09:40:00 2024-07-20 09:40:00 Outpatient R KUNAL FINLEY KUNAL [facility] [id number] [facility] 2024-06-30 14:40:00 2024-06-30 15:00:00 Urgent Care Jaymie Rg Unknown, [facility] 1..840.114 350.1.13.10 4.2.7.2.686 [id number] [facility] 2024-06-30 14:40:00 2024-06-30 14:40:00 Outpatient JAYMIE BRISENO [facility] [id number] [facility] 2024-06-20 18:00:00 2024-06-20 18:30:32 Outpatient BREE DELGADO [facility] [id number] [facility] 2024-06-20 18:00:00 2024-06-20 18:30:32 Urgent Care Bree Gilliam Unknown, Attending [facility] 1..840.114 350.1.13.10 4.2.7.2.686 [id number] [facility] 2024-06-10 11:00:00 2024-06-10 12:00:56 Outpatient R RIANNA EDWARDS [facility] [id number] [facility] 2024-06-10 11:00:00 2024-06-10 12:00:56 Urgent Care Rianna Edwards Unknown, Attending [facility] 1..840.114 350.1.13.10 4.2.7.2.686 [id number] [facility] 2024-05-16 10:40:00 2024-05-16 11:00:00 Urgent Care Jordon Lopez, Attending [facility] 1..840.114 350.1.13.10 4.2.7.2.686 [id number] [facility] 2024-05-16 10:40:00 2024-05-16 10:40:00 Outpatient R GILESJORDON [facility] [id number] [facility] 2024-05-03 13:18:18 2024-05-03 13:18:18 Outpatient SFA [id number] Bert Drew 2024-04-04 18:50:00 2024-04-04 20:23:00 Emergency X CHARMAINE DE LA VEGA SANDRA [facility] ERT [id number] [facility] 2024-04-04 18:50:00 2024-04-04 20:23:00 Emergency Charmaine De La Vega [facility] AT [facility] 1..840.114 350.1.13.10 4.2.7.2.686 [id number] [facility] 2024-04-04 10:00:00 2024-04-04 10:05:02 Nurse Visit Nurse, [facility] Unknown, Attending Ngozi Hicks Nurse, [facility] 1.2.840.114 350.1.13.10 4.2.7.2.686 [id number] [facility] 2024-04-04 09:20:00 2024-04-04 09:40:00 Urgent Care Provider, [facility] Unknown, Attending Provider, [facility] 1.2.840.114 350.1.13.10 4.2.7.2.686 [id number] [facility] 2024-04-04 09:20:00 2024-04-04 09:20:00 Outpatient R JORDON LOPEZ [facility] [id number] [facility] 2024-03-22 09:28:28 2024-03-22 09:28:28 Outpatient SFA [id number] Bert Drew 2024-02-24 13:00:00 2024-02-24 13:20:00 Urgent Care Atif Andrew Unknown, Attending [facility] 1.2.840.114 350.1.13.10 4.2.7.2.686 [id number] [facility] 2024-02-24 13:00:00 2024-02-24 13:00:00 Outpatient R ANDREW CHAND [facility] [id number] [facility] 2024-02-23 15:56:32 2024-02-23 15:56:32 Outpatient SFA [id number] Bert Drew 2024-02-16 19:17:00 2024-02-16 21:36:00 Emergency X JUAN ORNELAS TIMOTHY [facility] ERT [id number] [facility] 2024-02-16 19:17:00 2024-02-16 21:36:00 Emergency Juan Ornelas [place] [facility] 1..840.114 350.1.13.10 4.2.7.2.686 [id number] [facility] 2023-11-05 14:38:37 2023-11-05 14:38:37 Outpatient SFA SFA [id number] Bert Drew 2023-09-09 14:01:24 2023-09-09 14:01:24 Outpatient SFA SFA [id number] Bert Ibanez Rajendra 2023-09-05 13:07:12 2023-09-05 13:07:12 Outpatient SFA SFA [id number] Bert Drew 2023-05-11 19:11:01 2023-05-11 19:11:01 Outpatient SFA SFA [id number] Bert Ibanez [place] 2023-04-27 15:43:47 2023-04-27 15:43:47 Outpatient SFA SFA [id number] Bert Ibanez [place] 2023-02-26 14:39:00 2023-02-26 14:39:00 Outpatient SFA SFA [id number] Bert Ibanez Rajendra 2023-02-07 16:57:00 2023-02-07 23:17:00 Emergency X CHELLE ALICEA [facility] ERT [id number] [facility] 2023-02-07 16:57:00 2023-02-07 23:17:00 Emergency Chelle Alicea Savanna [facility] 1..840.114 350.1.13.10 4.2.7.2.686 [id number] [facility] 2023-02-02 14:32:00 2023-02-02 19:04:00 Emergency X MIKE [facility] ERT [id number] [facility] 2023-02-02 14:32:00 2023-02-02 19:04:00 Emergency Mike Urena [facility] 1.2.840.114 350.1.13.10 4.2.7.2.686 [id number] [facility] 2022-07-30 00:00:00 2022-07-30 00:00:00 Patient Secure Msg Doctor Unassigned, [place] [facility] 1.2.840.114 350.1.13.10 4.2.7.2.686 [id number] [facility] 2022-07-25 20:40:00 2022-07-25 22:43:00 Emergency X CHARMAINE DE LA VEGA [facility] ERT [id number] [facility] 2022-07-25 20:40:00 2022-07-25 22:43:00 Emergency Charmaine De La Vega [facility] 1.2.840.114 350.1.13.10 4.2.7.2.686 [id number] [facility] 2022-07-25 00:00:00 2022-07-25 00:00:00 Orders Only Doctor Unassigned, [place] [facility] 1.2840.114 350.1.13.10 4.2.7.2.686 [id number] [facility] 2022-06-25 18:25:00 2022-06-25 19:41:00 Emergency X BREN LONG [facility] ERT [id number] [facility] 2022-06-25 18:25:00 2022-06-25 19:41:00 Emergency Bren Long F [facility] 1.2.840.114 350.1.13.10 4.2.7.2.686 [id number] [facility] 2022-06-14 00:00:00 2022-06-14 00:00:00 Patient Secure Msg Doctor Unassigned, [place] [facility] 1.2.840.114 350.1.13.10 4.2.7.2.686 [id number] [facility] 2022-06-12 18:24:00 2022-06-12 22:39:00 Emergency Willie Simmons [facility] 1.2.840.114 350.1.13.10 4.2.7.2.686 [id number] [facility] 2022-06-12 18:24:00 2022-06-12 22:39:00 Emergency X Willie SIMMONS [facility] ERT [id number] [facility] Results Test Description Test Time Test Comments Results Result Co mments Source [facility] Molecular [id number] 00:24:11* Test Item Value Reference Range Interpretation Comme nts POCT Molecular FluA (test co de = 03642-1) Negative Negative POCT Molecular FluB (test co de = 07277-7) Negative Negative Lab Interpretation (test cod e = 44972-5) Normal [facility] MOLECULAR [id number] 00:16:14* Test Item Value Reference Range Interpretation Comme nts POCT Molecular Strep (test c ode = 24126-8) Negative Negative Lab Interpretation (test cod e = 79991-5) Normal [facility] SARS-COV-2 ANTIGEN (BINAX NOW)2024-06-10 17:24:00* Test Item Value Reference Range Interpretation Comme nts POCT SARS-COV-2 ANTIGEN (test code = 09214-6) Not Detected Not Detected, See Comment On board controls acceptable with C Line (test code = 3574) Yes FRED (test code = FRED) accurate development and interpretation of all internal controlsLeonarda Lee MA ?06/10/2024 ?11:24 AM [facility] Molecular [id number] 17:16:25* Test Item Value Reference Range Interpretation Comme nts POCT Molecular FluA (test co de = 02619-5) Negative Negative POCT Molecular FluB (test co de = 98061-1) Negative Negative Lab Interpretation (test cod e = 81690-7) Normal [facility] MOLECULAR [id number] 17:10:02* Test Item Value Reference Range Interpretation Comme nts POCT Molecular Strep (test c ode = 11450-3) Negative Negative Lab Interpretation (test cod e = 02267-8) Normal [facility] Urinalysis W Specific [id number] 17:09:00* Test Item Value Reference Range Interpretation [...] internal controlsLeonarda Lee MA ?06/10/2024 ?11:08 AM [facility] Molecular [id number] 18:07:16* Test Item Value Reference Range Interpretation Comme nts POCT Molecular FluA (test co de = 60844-6) Negative Negative POCT Molecular FluB (test co de = 86566-9) Negative Negative Lab Interpretation (test cod e = 57159-9) Normal [facility] SARS-COV-2 ANTIGEN (BINAX NOW)2024-05-16 18:06:00* Test Item Value Reference Range Interpretation Comme nts POCT SARS-COV-2 ANTIGEN (test code = 97338-2) Not Detected Not Detected, See Comment On board controls acceptable with C Line (test code = 3574) Yes FRED (test code = FRED) accurate developme nt and interpretation of all internal controls Lab Interpretation (test code = 11151-5) Normal [facility] MOLECULAR [id number] 17:58:19* Test Item Value Reference Range Interpretation Comme nts POCT Molecular Strep (test c ode = 05220-4) Negative Negative Lab Interpretation (test cod e = 05553-5) Normal [facility] SARS-COV-2 ANTIGEN (BINAX NOW)2024-02-24 18:45:00* Test Item Value Reference Range Interpretation Comme nts POCT SARS-COV-2 ANTIGEN (test code = 88222-0) Not Detected Not Detected, See Comment On board controls acceptable with C Line (test code = 3574) Yes [facility] Urinalysis W Specific [id number] 18:24:00* Test Item Value Reference Range Interpretation [...] Cloudy Lab Interpretation (test cod e = 95417-5) Abnormal [facility] MOLECULAR [id number] 18:22:58* Test Item Value Reference Range Interpretation Comme nts POCT Molecular Strep (test c ode = 70390-9) Negative Negative Lab Interpretation (test cod e = 74672-8) Normal [facility] [id number] 00:31:00* Test Item Value Reference Range Interpretation Comme nts POCT PREG (test code = 1605) Negative On board controls acceptable with C Line (test code = 3574) Yes POCT PREG LOT # (test code = 3575) [id number] POCT PREG TEST DATE ( test code = 3576) 2025-05-16 Lab Interpretation (test cod e = 98231-5) [id number] [facility]:31:00* Test Item Value Reference Range Interpretation Comme nts POCT PREG (test code = 1605) Negative On board controls acceptable with C Line (test code = 3574) Yes POCT PREG LOT # (test code = 3575) [id number] POCT PREG TEST DATE ( test code = 3576) 04/09/2024 Lab Interpretation (test cod e = 27385-9) [facility]. METABOLIC PANEL (49817)2023-02-02 22:45:13* Test Item Value Reference Range Interpretation Comme nts NA (test code = 4918495591) 138 mmol/L 135-145 K (test code = 6807287763) 4.0 mmol/L 3.5-5.0 CL (test code = 4179081635) 104 mmol/L 98-108 CO2 TOTAL (test code = 2900410790) 25 mmol/L 23-31 AGAP (test code = 6013062651) 9 2-16 BUN (test code = 1191346928) 4 mg/dL 7-23 L GLUCOSE (test code = 5661394076) 87 mg/dL 70-110 CREATININE (test code = 8809653200) 0.76 mg/dL 0.50-1.04 TOTAL BILI (test code = 8124472094) 0.3 mg/dL 0.1-1.1 CALCIUM (test code = 2498937999) 8.3 mg/dL 8.6-10.6 L T PROTEIN (test code = 2125893064) 7.3 g/dL 6.3-8.2 ALBUMIN (test code = 0139668924) 3.8 g/dL 3.5-5.0 ALK PHOS (test code = 6447864830) 88 U/L 34-122 ALTv (test code = 1742-6) 15 U/L 5-35 AST(SGOT) (test code = 1876557501) 21 U/L 13-40 eGFR (test code = 8629283921) 86.6 mL/min/1.73m2 FERD (test code = FRED) Association of Glomerular [...] imaging tests). Lab Interpretation (test code = 17351-5) Abnormal [facility] WITH [id number] 22:34:13* Test Item Value Reference Range Interpretation Comme nts WBC (test code = 6690-2) 9.97 See_Comment [Automated [employer]] The system which generated this result transmitted reference range: 4.30 - 11.10 10*3/?L. The reference range was not used to interpret this result as normal/abnormal. RBC (test code = 789-8) 4.38 See_Comment [Autom[employer]] The system which generated this result transmitted [...] g/dL 31.6-35.1 L RDW-SD (test code = 83964-7) 44.4 fL 39.0-49.9 RDW-CV (test code = 788-0) 16.2 % 12.0-15.5 H PLT (test code = 777-3) 341 See_Comment [Automated messa ge] The system which generated this result transmitted reference range: 166 - 358 10*3/?L. The reference range was not used to interpret this result as normal/abnormal. MPV (test code = 50627-0) 10.8 fL 9.5-12.9 NRBC/100 WBC (test code = 2001871037) 0.0 See_Comment [Automated Cardoz ssage] The system which generated this result transmitted reference range: 0.0 - 10.0 /100 WBCs. The reference range was not used to interpret this result as normal/abnormal. NRBC x10^3 (test code = 1436780431) See_Comment [Automated messa ge] The system which generated this result transmitted reference range: 10*3/?L. The reference range was not used to interpret this result as normal/abnormal. GRAN MAT (NEUT) % (test code = 770-8) 67.7 % IMM GRAN % (test code = 5551964431) 0.50 % LYMPH % (test code = 736-9) 20.1 % MONO % (test code = 5905-5) 7.7 % EOS % (test code = 713-8) 3.2 % BASO % (test code = 706-2) 0.8 % GRAN MAT x10^3(ANC) (test code = 7873332300) 6.75 10*3/uL 1.88-7.09 IMM GRAN x10^3 (test code = 4523354224) 0.05 10*3/uL 0.00-0.06 LYMPH x10^3 (test code = 731-0) 2.00 10*3/uL 1.32-3.29 MONO x10^3 (test code = 742-7) 0.77 10*3/uL 0.33-0.92 EOS x10^3 (test code = 711-2) 0.32 10*3/uL 0.03-0.39 BASO x10^3 (test code = 704-7) 0.08 10*3/uL 0.01-0.07 H Lab Interpretation (test code = 25287-8) [id number] 21:51:00* Test Item Value Reference Range Interpretation Comme nts POCT PREG (test code = 1605) Negative On board controls acceptable with C Line (test code = 3574) Yes POCT PREG LOT # (test code = 3575) [id number] POCT PREG TEST DATE ( test code = 3576) 06-16-2024 Lab Interpretation (test cod e = 30890-4) Normal [facility] - Code [id number] 03:15:51* Test Item Value Reference Range Interpretation Comments TROPONIN I (test code = 6417762514) 0.002 ng/mL See_Comment [Automated message] The system [...] of biotin. Lab Interpretation (test code = 20729-3) Normal [facility] - Code [id number] 03:13:50* Test Item Value Reference Range Interpretation [facility] AP[facility] (test code = 3173-2) See_Comment [Automated message] The system which generated this result transmitted reference range: 23 - 38 Seconds. The reference range was not used to interpret this result as normal/abnormal. FRED (test code = FRED) The [facility] patient population mean normal value for aPTT is 30 seconds. Lab Interpretation (test code = 47335-6) Normal [facility] Time / INR - Code [id number] 03:11:50* Test Item Value Reference Range Interpretation Comme [facility] PROTIME PATIENT (test code = 5964-2) See_Comment L [Automated messa ge] The system which generated this result transmitted reference range: 12.0 - 14.7 Seconds. The reference range was not used to interpret this result as normal/abnormal. INR (test code = 6301-6) Normal INR <1.1; Warfarin Therapeutic range 2.0 to 3.0 or 2.5 to 3.5, depending upon the indications. Lab Interpretation (test code = 01093-4) [facility] (NA, K, CL, CO2, Glucose, BUN, Creatinine, CA) - Code [id number] 03:10:39* Test Item Value Reference Range Interpretation Comme [facility] NA (test code = 8604176435) 135 mmol/L 135-145 K (test code = 4759137770) 4.3 mmol/L 3.5-5.0 CL (test code = 9471791692) 103 mmol/L 98-108 CO2 TOTAL (test code = 0786861079) 24 mmol/L 23-31 AGAP (test code = 3318629812) 2-16 BUN (test code = 8613612426) 9 mg/dL 7-23 GLUCOSE (test code = 6486272750) 91 mg/dL 70-110 CREATININE (test code = 9637990074) 0.74 mg/dL 0.50-1.04 CALCIUM (test code = 4555247771) 8.2 mg/dL 8.6-10.6 L eGFR (test code = 1882721797) mL/min/1.73m2 FRED (test code = FRED) Association [...] imaging tests). Lab Interpretation (test code = 12844-4) Abnormal [facility] without Diff - Code [id number] 02:55:30* Test Item Value Reference Range Interpretation [...] result as normal/abnormal. MPV (test code = 42264-5) 10.1 fL 9.5-12.9 RDW-CV (test code = 788-0) 14.6 % 12.0-15.5 RDW-SD (test code = 00880-0) 41.6 fL 39.0-49.9 NRBC x10^3 (test code = 5840442768) See_Comment [Automated Autoquakea ge] The system which generated this result transmitted reference range: 10*3/?L. The reference range was not used to interpret this result as normal/abnormal. NRBC/100 WBC (test code = 1040606871) See_Comment [Automated Autoquakea ge] The system which generated this result transmitted reference range: 0.0 - 10.0 /100 WBCs. The reference range was not used to interpret this result as normal/abnormal. IPF % (test code = 3318708251) Lab Interpretation (test code = 33035-8) [facility] (AUTOMATED)2022-07-26 02:47:33* Test Item Value Reference Range Interpretation Comme [facility] POCT GLU (test code = 2886894230) 91 mg/dL 70-110 Lab Interpretation (test cod e = 48968-7) Normal [facility] Hospital[facility] MET[facility]OLIC PANEL (07230)2022-06-26 01:16:55* Test Item Value Reference Range Interpretation Comme [facility] NA (test code = 2763071691) 135 mmol/L 135-145 K (test code = 6411374937) 4.2 mmol/L 3.5-5.0 CL (test code = 8212270199) 100 mmol/L 98-108 CO2 TOTAL (test code = 8535683277) 28 mmol/L 23-31 AGAP (test code = 7315906815) 2-16 BUN (test code = 0079961422) 11 mg/dL 7-23 GLUCOSE (test code = 6836766170) 87 mg/dL 70-110 CREATININE (test code = 4051695070) 0.75 mg/dL 0.50-1.04 TOTAL BILI (test code = 7879656514) 0.4 mg/dL 0.1-1.1 CALCIUM (test code = 9638919226) 9.5 mg/dL 8.6-10.6 T PROTEIN (test code = 7811979596) 7.8 g/dL 6.3-8.2 ALBUMIN (test code = 1734066326) 4.5 g/dL 3.5-5.0 ALK PHOS (test code = 9061122212) 100 U/L 34-122 ALTv (test code = 1742-6) 15 U/L 5-35 AST(SGOT) (test code = 1690413990) 21 U/L 13-40 eGFR (test code = 9299244708) mL/min/1.73m2 FRED (test code = FRED) Association [...] or urine or abnormalities in imaging tests). [facility] WITH [id number] 01:11:17* Test Item Value Reference Range Interpretation Comme nts WBC (test code = 6690-2) See_Comment [Automated Autoquakea ge] The system which generated this result transmitted reference range: 4.30 - 11.10 10*3/?L. The reference range was not used to interpret this result as normal/abnormal. RBC (test code = 789-8) See_Comment [Automated Autoquakea ge] The system which generated this result [...] g/dL 31.6-35.1 L RDW-SD (test code = 24299-7) 42.1 fL 39.0-49.9 RDW-CV (test code = 788-0) 14.6 % 12.0-15.5 PLT (test code = 777-3) See_Comment H [Automated Autoquakea ge] The system which generated this result transmitted reference range: 166 - 358 10*3/?L. The reference range was not used to interpret this result as normal/abnormal. MPV (test code = 02936-7) 10.7 fL 9.5-12.9 NRBC/100 WBC (test code = 3420299550) See_Comment [Automated Cardoz ssage] The system which generated this result transmitted reference range: 0.0 - 10.0 /100 WBCs. The reference range was not used to interpret this result as normal/abnormal. NRBC x10^3 (test code = 0793807036) See_Comment [Automated messa ge] The system which generated this result transmitted reference range: 10*3/?L. The reference range was not used to interpret this result as normal/abnormal. GRAN MAT (NEUT) % (test code = 770-8) 58.5 % IMM GRAN % (test code = 2970348307) 0.90 % LYMPH % (test code = 736-9) 29.4 % MONO % (test code = 5905-5) 7.8 % EOS % (test code = 713-8) 2.8 % BASO % (test code = 706-2) 0.6 % GRAN MAT x10^3(ANC) (test code = 8394683914) 6.35 10*3/uL 1.88-7.09 IMM GRAN x10^3 (test code = 7658433611) 0.10 10*3/uL 0.00-0.06 H LYMPH x10^3 (test code = 731-0) 3.20 10*3/uL 1.32-3.29 MONO x10^3 (test code = 742-7) 0.85 10*3/uL 0.33-0.92 EOS x10^3 (test code = 711-2) 0.30 10*3/uL 0.03-0.39 BASO x10^3 (test code = 704-7) 0.07 10*3/uL 0.01-0.07 Lab Interpretation (test code = 74912-5) [facility] [id number] 00:42:00* Test Item Value Reference Range Interpretation Comme nts POCT PREG (test code = 1605) negative On board controls acceptable with C Line (test code = 3574) present POCT PREG LOT # (test code = 3575) [id number] POCT PREG TEST DATE ( test code = 3576) 10-03-2023 Lab Interpretation (test cod e = 12110-2) [facility] 00:50:02* Test Item Value Reference Range Interpretation Comme nts MAGNESIUM (test code = 6533428195) 1.9 mg/dL 1.7-2.4 Lab Interpretation (test cod e = 69646-4) Normal [facility]IC PANEL (80641)2022-06-13 00:49:27* Test Item Value Reference Range Interpretation Comme nts NA (test code = 7375405804) 137 mmol/L 135-145 K (test code = 8433144034) 4.6 mmol/L 3.5-5.0 CL (test code = 1936820914) 106 mmol/L 98-108 CO2 TOTAL (test code = 4063973890) 22 mmol/L 23-31 L AGAP (test code = 7501298138) 2-16 BUN (test code = 3261893411) 12 mg/dL 7-23 GLUCOSE (test code = 3603603524) 91 mg/dL 70-110 CREATININE (test code = 6700659961) 0.74 mg/dL 0.50-1.04 TOTAL BILI (test code = 2726630665) 0.3 mg/dL 0.1-1.1 CALCIUM (test code = 7084142984) 9.0 mg/dL 8.6-10.6 T PROTEIN (test code = 4969138150) 7.8 g/dL 6.3-8.2 ALBUMIN (test code = 3044982585) 4.6 g/dL 3.5-5.0 ALK PHOS (test code = 7823646562) 104 U/L 34-122 ALTv (test code = 1742-6) 16 U/L 5-35 AST(SGOT) (test code = 6733633056) 22 U/L 13-40 eGFR (test code = 0555864597) mL/min/1.73m2 FRED (test code = FRED) Association [...] imaging tests). Lab Interpretation (test code = 66312-2) [facility]normal [facility]LIPASE2022-[facility]-10 00:49:27* Test Item Value Reference Range Interpretation Comme nts LIPASE (test code = 9673511606) 132 U/L 0-220 Lab Interpretation (test cod e = 74603-3) [facility] [id number] 00:45:00* Test Item Value Reference Range Interpretation Comme nts POCT PREG (test code = 1605) NEGATIVE On board controls acceptable with C Line (test code = 3574) present POCT PREG LOT # (test code = 3575) [id number] POCT PREG TEST DATE ( test code = 3576) 10/03/2023 Lab Interpretation (test cod e = 80420-1) Normal [facility] HospitalCBC WITH [id number] 00:35:01* Test Item Value Reference Range Interpretation Comme nts WBC (test code = 6690-2) See_Comment [Automated [employer]] The system which generated this result transmitted reference range: 4.30 - 11.10 10*3/?L. The reference range was not used to interpret this result as normal/abnormal. RBC (test code = 789-8) See_Comment [Automated [employer]] The system which generated this result transmitted [...] 32.0 g/dL 31.6-35.1 RDW-SD (test code = 02091-1) 41.8 fL 39.0-49.9 RDW-CV (test code = 788-0) 14.6 % 12.0-15.5 PLT (test code = 777-3) See_Comment H [Automated messa ge] The system which generated this result transmitted reference range: 166 - 358 10*3/?L. The reference range was not used to interpret this result as normal/abnormal. MPV (test code = 87755-2) 10.9 fL 9.5-12.9 NRBC/100 WBC (test code = 8783111435) See_Comment [Automated Cardoz ssage] The system which generated this result transmitted reference range: 0.0 - 10.0 /100 WBCs. The reference range was not used to interpret this result as normal/abnormal. NRBC x10^3 (test code = 7620908065) See_Comment [Automated messa ge] The system which generated this result transmitted reference range: 10*3/?L. The reference range was not used to interpret this result as normal/abnormal. GRAN MAT (NEUT) % (test code = 770-8) 59.4 % IMM GRAN % (test code = 2105467731) 0.80 % LYMPH % (test code = 736-9) 28.6 % MONO % (test code = 5905-5) 7.7 % EOS % (test code = 713-8) 2.7 % BASO % (test code = 706-2) 0.8 % GRAN MAT x10^3(ANC) (test code = 1861908489) 6.12 10*3/uL 1.88-7.09 IMM GRAN x10^3 (test code = 0397270616) 0.08 10*3/uL 0.00-0.06 H LYMPH x10^3 (test code = 731-0) 2.94 10*3/uL 1.32-3.29 MONO x10^3 (test code = 742-7) 0.79 10*3/uL 0.33-0.92 EOS x10^3 (test code = 711-2) 0.28 10*3/uL 0.03-0.39 BASO x10^3 (test code = 704-7) 0.08 10*3/uL 0.01-0.07 H Lab Interpretation (test code = 10151-1) [facility]normal [facility] HospitalANA (ANTI-NUCLEAR AB) WITH REFLEX TITER 2022-02-26 05:30:56* Test Item Value Reference Range Interpretation Comme nts ANTI-NUCLEAR ANTIBODIES (test code = 3506) NEGATIVE NEGATIVE Methodology is I ndirect Immunofluorescent Assay (IFA) with a titering system using [id number] cells (Hep2 cells transfected with SS-A/Ro). SHON PATTERN (REPORTED TITER) (test code = 96886) SEE BELOW HOMOGENEOUS (test code = 88828) NEGATIVE TITER NEGATIVE SPECKLED (test code = 043507) NEGATIVE TITER NEGATIVE DENSE FINE SPECKLED (test code = 79932) NEGATIVE TITER NEGATIVE CENTROMERE (test code = 470815) NEGATIVE TITER NEGATIVE COARSE SPECKLED (test code = 109881) NEGATIVE TITER NEGATIVE DISCRETE NUCLEAR DOTS (test code = 132571) NEGATIVE TITER NEGATIVE NUCLEOLAR (test code = 961137) NEGATIVE TITER NEGATIVE NUCLEAR MEMBRANE (test code = 628159) NEGATIVE TITER NEGATIVE CYTO. RETICULAR (CLEVE) (test code = 891928) NEGATIVE NEGATIVE COMMENTS (test code = 922549) NONE METHOD (test code = 83637) (NOTE) NOTE: EFFECTIVE 02/09/2022, METHOD IS TRANSITIONED TO THE [employer] IFA PLATFORM. THE METHOD INCLUDES A SCREENTHRESHOLD OF 1:80, DIGITIZED AND COMPUTER ALGORITHM-ASSISTEDINTER PRETATION OF TITERS AND DIGITAL PATTERNS, AND HEp-2 CELLLINE SUBSTRATE. ADDITIONAL UNUSUAL PATTERNS WILL BE GIVEN ASCOMMENTS. FOR MORE INFORMATION, SEE [email or web address] richyg TSH, THIRD [id number] 09:27:28* Test Item Value Reference Range Interpretation Comme nts TSH, THIRD GENERATION (test code = 2821) 11.400 UIU/ML 0.400-4.100 H VITAMIN [id number] 09:27:28* Test Item Value Reference Range Interpretation Comme [facility] VITAMIN B-12 (test code = 2840) 777 PG/ML 200-950 UNLESS OTHERWISE INDICATED, ALL TESTING PERFORMED [facility] PATHOLOG[facility] [email or web address] [address] [place] [address] FR[employer] WORK INSPECTOR: EVA MCKENZIE M.D. CLIA NUMBER [id number] [facility] [place]. [id number] CBC W/AUTO DIFF WITH [id number] 06:51:56* Test Item Value Reference Range Interpretation [...] = 1065) 0.0 /100 WBC'S See_Comment [Automated messa ge] The system which [...] 0.00-0.10 ABS NUCLEATED RBCS (test code = 79325) 0.00 K/UL 0.00-0.11 HEMOGLOBIN [id number] 06:47:57* Test Item Value Reference Range Interpretation Comme nts HEMOGLOBIN A1c (test code = 91355) 5.4 % 4.2-5.6 COMPREHENSIVE METABOLIC [id number] 06:46:41* Test Item Value Reference Range Interpretation Comme nts GLUCOSE (test code = 7) 96 MG/DL 70-99 BUN (test code = 2207) 8 MG/DL 6-20 CREATININE (test code = 2213) 0.97 MG/DL 0.60-1.30 eGFR (2020 CKD-EPI) (test code = 42547) 79 ML/MIN/1.73 >60 CALC BUN/CREAT (test code = 2235) 8 RATIO 6-28 SODIUM (test code = [...] 1.9-3.7 CALC A/G RATIO (test code = 2234) 1.5 RATIO 1.0-2.6 BILIRUBIN, TOTAL (test code = 2206) <0.2 MG/DL See_Comment [Automated me ssage] The system which generated this result transmitted reference range: <=1.2. The reference range was not used to interpret this result as normal/abnormal. ALKALINE PHOSPHATASE (test code = 2204) 107 U/L 40-114 AST (test code = 2218) 14 U/L 9-40 ALT (test code = 2219) 10 U/L 5-40 LIPID [id number] 06:46:41* Test Item Value Reference Range Interpretation [...] SPECIMENS. FOR MOREINFORMATION, SEE CLIENT ANNOUNCEMENT AT http://www.[employer] /CalcLDL-C RISK RATIO LDL/HDL (test code = 2238) 1.75 RATIO <3.22 SARS-CoV-2 (COVID-19), RT-PCR/[id number] 14:35:57* Test Item Value Reference Range Interpretation Comments SARS-CoV-2 INTERPRETATION (test code = 20918) NEGATIVE SEE NOTE SARS-CoV-2 R NA NOT [...] prevalence is high. SOURCE (test code = 91829) NASOPHARYNGEAL Note: Methodolog y is Gurdeep Petra Real-Time RT-PCR. The expected result or reference range is NEGATIVE (Not Detected). For more information regarding COVID-19 testing to include clinicalinformation, methodology detail, intended use, FDA authorization andrecommended fact sheets for patients or healthcare providers, see [employer] Announcement: SARS-CoV-2 (COVID-19) by NAAT at URL below (note,fact sheets are provided by method given in report:[email or web address] Alternatively, see downloadable PDF fact sheet at:[email or web address]-ZM-PCR UNLESS OTHERWISE INDICATED, ALL TESTING PERFORMED [facility] [address] [place] [address] FRESH WORK INSPECTOR: EVA MCKENZIE M.D. CLIA NUMBER [id number] [facility] [place]. [id number]"
[2024-08-14] MEDS ORDERED: droPERidol 5 MG/2 ML VIAL ONE (21:09)
[2024-08-14] MEDS ORDERED: NA CHLORIDE 0.9% 1,000 ML ONE (21:10)
[2024-08-14] MEDS ORDERED: DIPHENHYDRAMINE 50 MG/ML VIAL ONE (21:10)
[2024-08-14 21:14] LABS: Absolute Eosinophils 0.1 K/uL (0-0.5); Absolute Lymphocytes (CBC) 2.1 K/uL (0.7-4.9); Absolute Monocytes 0.5 K/uL (0.1-1.3); Absolute Neutrophil 4.2 K/uL (1.8-8.0); Basophils % 0.7 % (0-1.3); Eosinophils % 1.3 % (0-4.4); Hematocrit 35.8 % (36.0-45.0); Hemoglobin 12.3 g/dL (12.0-15.0); Lymphocytes % 30.1 % (15.3-44.8); MCH 29.1 pg (27.0-35.0); MCHC 34.3 g/dL (32.0-36.0); MCV 84.7 fL (80-100); MPV 8.7 fL (7.6-11.3); Monocytes % 7.5 % (3.3-12.3); Neutrophils % 60.4 % (41.7-73.7); Nucleated Red Blood Cells % 0.1 % (0-0); Platelets 296 thou/uL (152-406); RBC Red Blood Cell Count 4.23 M/uL (3.86-4.86); Red Cell Distribution Width 13.3 % (12.1-15.2)
[2024-08-14 21:26] LABS: Specific Gravity < 1.005 (1.005-1.030); Sqamous Epithelial <5 /HPF (None Seen); Urine Bacteria <20 /HPF (<20); Urine Bilirubin NEGATIVE (Negative); Urine Blood Negative (Negative); Urine Clarity Turbid (Clear); Urine Color Colorless (Yellow); Urine Culture Reflex Order NOT NEEDED; Urine Glucose NEGATIVE (Negative); Urine Ketones NEGATIVE (Negative); Urine Microscopic Reflex YN ORDER UMIC; Urine Nitrite NEGATIVE (Negative); Urine Protein NEGATIVE (Negative); Urine RBC <5 /HPF (None Seen); Urine Urobilinogen Normal (Normal); Urine WBC <5 /HPF (<5)
[2024-08-14 21:32] LABS: Albumin/Globulin Ratio 0.9 (1.1-1.8); Anion Gap 7.4 mEq/L (5.0-15.0); Bilirubin Total 0.3 mg/dL (0.2-1.0); Globulin 3.4 g/dL (2.3-3.5); Potassium 3.4 mEq/L (3.5-5.1); Protein, Total 6.4 g/dL (6.4-8.2)
--- NOTE | 2024-08-14 21:45 | ER ---
Nurse's Notes [facility] Name: Missy Leon Age: 39 yrs Sex: Female : 1985 Arrival Date: 08/14/2024 Time: 20:13 Bed 27 Private MD: Diagnosis: Nausea with vomiting, unspecified Presentation: 08/14 20:16 Chief complaint: Chief complaint: Patient states: PT C/O AB PAIN AND VOMITING. PT WAS br2 DISCHARGED ON WEDNESDAY FOR SAME SYMPTOMS BUT STATES NOW SHE IS HAVING PAIN TO LOWER BACK. 20:20 Coronavirus screen: Client denies travel out of the [place] in the last 14 days. Ebola br2 Screen: Patient denies exposure to infectious person. Initial Sepsis Screen: Does the patient meet any 2 criteria? No. Patient's initial sepsis screen is negative. Does the patient have a suspected source of infection? No. Patient's initial sepsis screen is negative. Risk Assessment: Do you want to hurt yourself or someone else? Patient reports no desire to harm self or others. Onset of symptoms is unknown. 20:20 Method Of Arrival: EMS: [facility] br2 20:20 Acuity: JAYSON 3 br2 Triage Assessment: 20:23 General: Appears uncomfortable, Behavior is anxious. Pain: Complains of pain in right br2 upper quadrant, left upper quadrant, right lower quadrant and left lower quadrant. GI: Reports lower abdominal pain, upper abdominal pain, nausea, vomiting. Historical: - Allergies: 20:23 Phenergan; br2 20:23 Zithromax; br2 - PMHx: 20:23 hiatal hernia; br2 - PSHx: 20:23 section; Cholecystectomy; tubal; br2 - Immunization history:: Adult Immunizations up to date. - Infectious Disease History:: Denies. - Social history:: Smoking status: Patient reports the use of cigarette tobacco products. Screenin:00 [facility] ED Fall Risk Assessment (Adult) History of falling in the last 3 months, jb4 including since admission No falls in past 3 months (0 pts) Confusion or Disorientation No (0 pts) Intoxicated or Sedated No (0 pts) Impaired Gait No (0 pts) Mobility Assist Device Used No (0 pt) Altered Elimination No (0 pt) Score/Fall Risk Level 0 - 2 = Low Risk Oriented to surroundings, Maintained a safe environment. Abuse screen: Denies threats or abuse. Nutritional screening: No deficits noted. Tuberculosis screening: No symptoms or risk factors identified. Assessment: 22:00 Reassessment: Patient appears in no apparent distress at this time. Patient and/or jb4 family updated on plan of care and expected duration. Pain level reassessed. Patient is alert, oriented x 3, equal unlabored respirations, skin warm/dry/pink. Vital Signs: 20:20 BP 151 / 106; Pulse 99; Resp 18 S; Temp 98.3(O); Pulse Ox 100% on R/A; Weight 81.65 kg; br2 Height 5 ft. 1 in. ; Pain 10/10; 22:00 BP 122 / 95; Pulse 66; Resp 16; Pulse Ox 98% on R/A; jb4 20:20 Body Mass Index 34.01 (81.65 kg, 154.94 cm) br2 20:20 Pain Scale: Adult br2 ED Course: 20:15 Patient arrived in ED. kmf 20:16 Adam Ozuna MD is Attending Physician. ec2 20:23 Triage completed. br2 20:23 Arm band placed on. br2 21:18 CMP Sent. jb4 21:18 Lipase Sent. jb4 21:18 Urinalysis w/ reflexes Sent. jb4 22:00 Patient has correct armband on for positive identification. Bed in low position. Call jb4 light in reach. Side rails up X 1. Provided Education on: plan of care. 22:00 No provider procedures requiring assistance completed. IV discontinued, intact, jb4 bleeding controlled, No redness/swelling at site. Pressure dressing applied. Administered Medications: 21:17 Drug: Droperidol IVP 2.5 mg IVP once Route: IVP; Site: right antecubital; jb4 21:59 Follow up: Response: No adverse reaction; Marked relief of symptoms jb4 21:17 Drug: diphenhydrAMINE IVP 25 mg IVP once Route: IVP; Site: right antecubital; jb4 21:59 Follow up: Response: No adverse reaction; Marked relief of symptoms jb4 21:18 Drug: NS 0.9% IV 1000 ml IV at 1 bolus Per protocol; to be given as a bolus over 60 jb4 minutes Route: IV; Rate: 1 bolus; Site: right antecubital; 21:59 Follow up: Response: No adverse reaction; IV Status: pt discharged; IV Intake: 800ml jb4 Medication: 22:00 VIS not applicable for this client. jb4 Intake: 21:59 IV: 800ml; Total: 800ml. jb4 Outcome: 21:45 Discharge ordered by . ec2 22:00 Discharged to home ambulatory, with family, jb4 22:00 Condition: stable 22:00 Discharge instructions given to patient, Instructed on discharge instructions, follow up and referral plans. Demonstrated understanding of instructions, follow-up care, 22:01 Patient left the ED. jb4 Signatures: Orestes Sims RN RN jb4 Adam Ozuna MD MD ec2 Minnie Del Valle Komal Aragon RN RN br2 Corrections: (The following items were deleted from the chart) 20:23 20:16 Chief complaint: br2 br2
--- NOTE | 2024-08-14 21:45 | EDPHYS ---
Physician Documentation [facility] Name: Missy Leon Age: 39 yrs Sex: Female : 1985 Arrival Date: 08/14/2024 Time: 20:13 Bed 27 Private MD: ED Physician Adam Ozuna HPI: 08/14 20:19 This 39 yrs old Female presents to ER via Unassigned with complaints of n/v. ec2 20:19 Patient arrives today for persistent abdominal pain along with nausea and vomiting. ec2 Patient with recent admission for intractable nausea and vomiting. External lab work shows a reassuring CBC, reassuring metabolic profile, negative , noninfectious appearing urine. Patient reports recent discharge, reports persistent abdominal pain and nausea and vomiting.. Historical: - Allergies: 20:23 Phenergan; br2 20:23 Zithromax; br2 - PMHx: 20:23 hiatal hernia; br2 - PSHx: 20:23 section; Cholecystectomy; tubal; br2 - Immunization history:: Adult Immunizations up to date. - Infectious Disease History:: Denies. - Social history:: Smoking status: Patient reports the use of cigarette tobacco products. ROS: 20:20 Constitutional: as per hpi ec2 Exam: 20:20 Constitutional: GEN: NAD Head: atraumatic Eyes: EOMI Ears: External ears are ec2 normal. CV: regular rate LUNGS: no respiratory distress ABD: non-distended, soft, not guarding, not rigid SKIN: no evidence of rashes MSK: no evidence of trauma Vital Signs: 20:20 BP 151 / 106; Pulse 99; Resp 18 S; Temp 98.3(O); Pulse Ox 100% on R/A; Weight 81.65 kg; br2 Height 5 ft. 1 in. ; Pain 10/10; 22:00 BP 122 / 95; Pulse 66; Resp 16; Pulse Ox 98% on R/A; jb4 20:20 Body Mass Index 34.01 (81.65 kg, 154.94 cm) br2 20:20 Pain Scale: Adult br2 MDM: 20:18 Medical Screening Exam initiated ec2 20:20 Data reviewed: vital signs, nurses notes, EMS record. ED course: Patient arrives today ec2 for evaluation abdominal pain along with nausea and vomiting. Examination yields reassuring abdominal examination. Will obtain repeat lab work and treat the patient's symptoms. Suspect continuance of patient's recent hospitalization, possible gastritis, possible gastroenteritis, doubt intra-abdominal infection or given recent negative workup.. 20:29 ED course: Of note and recent admission patient had recent endoscopy with esophagitis ec2 and gastritis.. 21:44 ED course: On reassessment patient with marked improvement in symptoms. Will discharge ec2 home. Return precautions given.. 08/14 20:21 Order name: CBC with Diff; Complete Time: 21:19 ec2 08/14 20:21 Order name: CMP; Complete Time: 21:42 ec2 08/14 20:21 Order name: Lipase; Complete Time: 21:42 ec2 08/14 20:21 Order name: Urinalysis w/ reflexes; Complete Time: 21:42 ec2 08/14 21:42 Order name: Test, Urine; Complete Time: 21:51 ec2 08/14 20:21 Order name: IV Saline Lock; Complete Time: 21:18 ec2 08/14 20:21 Order name: Labs collected and sent; Complete Time: 21:18 ec2 Administered Medications: 21:17 Drug: Droperidol IVP 2.5 mg IVP once Route: IVP; Site: right antecubital; jb4 21:59 Follow up: Response: No adverse reaction; Marked relief of symptoms jb4 21:17 Drug: diphenhydrAMINE IVP 25 mg IVP once Route: IVP; Site: right antecubital; jb4 21:59 Follow up: Response: No adverse reaction; Marked relief of symptoms jb4 21:18 Drug: NS 0.9% IV 1000 ml IV at 1 bolus Per protocol; to be given as a bolus over 60 jb4 minutes Route: IV; Rate: 1 bolus; Site: right antecubital; 21:59 Follow up: Response: No adverse reaction; IV Status: pt discharged; IV Intake: 800ml jb4 Disposition Summary: 08/14/24 21:45 Discharge Ordered Notes: Location: Home ec2 Condition: Stable ec2 Diagnosis - Nausea with vomiting, unspecified ec2 Followup: ec2 - With: Private Physician - When: - Reason: Re-evaluation by your physician Discharge Instructions: - Discharge Summary Sheet ec2 - Nausea and Vomiting, Adult ec2 Forms: - Medication Reconciliation Form ec2 - Antibiotic Education ec2 - Prescription Opioid Use ec2 - Patient Portal Instructions ec2 - Leadership Thank You Letter ec2 Signatures: Dispatcher [employer] Orestes Giron, RN RN jb4 Adam Ozuna MD MD ec2 Komal Aragon RN RN br2 Corrections: (The following items were deleted from the chart) 21:43 21:43 Test, Urine+[id number].LAB.BRZ ordered. NAVARRO BRICEÑO
[2024-08-14 21:51] LABS: Specific Gravity < 1.005 (1.005-1.030)
[2024-08-15 02:06] VITALS: TEMP 98.3
[2024-08-15 02:08] VITALS: BP 122/95; O2SAT 98
== END 2024-08-14 22:01 | disposition home or self-care (01) ==
LOC: ER 20:13
DX: R11.2 Nausea with vomiting, unspecified (principal); Z72.0 Tobacco use
CPT/HCPCS: 85025; 81001; 36415; 81025; 83690; 80053; J1200; J1790; J7030; 96361; 96374; 96375; 99284